=== PATIENT | female | born 1945 | race Caucasian/White ===

== ENCOUNTER 2017-09-04 15:34 | Inpatient (IN) | payer MEDICARE, MEDICAID ==
--- NOTE | 2017-09-04 16:10 | ED Physician Chart ---
ED Chief Complaint/HPI - Patient Information Date Seen:: 09/04/17 Time Seen:: 16:00 Chief Complaint:: refusing medications History of Present Illness:: Patient has been refusing medications and refusing food. She reportedly has episodes of aggressive behavior. Allergies:: Allergies Allergy/AdvReac Type Severity Reaction Status Date / Time MDX No Known Allergies - Nka Allergy Verified 09/04/17 15:58 [No Known Allergies - Nka] Vitals:: Vital Signs - 8 hr 09/04/17 15:53 Temp 98 F HR 69 RR 16 BP 170/63 O2 Sat % 98 Historian:: Patient Review:: Transfer documents Reviewed ED Review of Systems - Review of Systems General/Constitutional: No fever, No chills Skin: No skin lesions Head: No headache ENT: No earache Neck: No neck pain, No swelling Cardio Vascular: No chest pain, No palpitations GI: No nausea, No vomiting, No diarrhea G/U: No dysuria Musculoskeletal: No bone or joint pain Endocrine: No polyuria, No polydipsia Psychiatric: Prior psych history, Depression, Anxiety Hematopoietic: No bruising Allergic/Immuno: No urticaria Neurological: No syncope ED Past Medical History - Past Medical History Past Medical History: HTN, DM, Thyroid disorder, Other (type 2 diabetes; polyneuropathy; hypothyroidism; bipolar disorder; insomnia; major depression) Family History: None Social History: Non Smoker, No Alcohol, Care Facility Surgical History: other (left leg for fractures) Psychiatricy History: Depression, Bipolar Medication: Reviewed Family Medical History - Family Member Mother History Unknown: Yes Ethnicity: Living Status: ED Physical Exam - Physical Examination General/Constitutional: Well-developed, well-nourished, Alert, No distress Other Gen/Cons comments:: Patient is alert and oriented to the correct year only; she states the year is October Head: Atraumatic Eyes: Lids, conjuctiva normal, PERRL Other Skin comments:: Erythema both lower leg ENMT: External ears, nose nl, Lips, teeth, gums nl, Oropharynx nl Neck: No nuchal rigidity Respiratory: Nl effort/Exclusion, Clear to Auscultation, No Wheeze/Rhonchi/Rales Cardio Vascular: RRR, No murmur, gallop, rubs GI: No tenderness/rebounding/guarding, No organomegaly, No hernia Other Extremities comments:: 3-4 pretibial edema left lower leg and 2 out of 4 pretibial edema right lower leg Neuro/Psych: No focal deficits Misc: No paraspinal tenderness ED Labs/Radiology/EKG Results - Lab Results Results: Laboratory Results - last 24 hr 09/04/17 09/04/17 09/04/17 16:27 16:27 16:27 WBC 4.0 L D RBC 3.66 L Hgb 10.6 L Hct 31.6 L MCV 86.4 MCH 29.0 MCHC Differential 33.6 RDW 13.3 Plt Count 261 D MPV 7.3 Neutrophils % 72.6 Lymphocytes % 15.5 L Monocytes % 9.2 Eosinophils % 1.6 Basophils % 1.1 Sodium 141 Potassium 3.3 L Chloride 106 Carbon Dioxide 28.5 Anion Gap 9.8 BUN 23 Creatinine 0.6 Est GFR ( Amer) TNP Est GFR (Non-Af Amer) TNP BUN/Creatinine Ratio 38.3 Glucose 113 H Whole Bld Lactic Acid 0.61 Calcium 9.0 Total Bilirubin 0.2 L AST 18 ALT 12 Alkaline Phosphatase 58 Total Protein 6.8 Albumin 3.9 Globulin 2.9 Albumin/Globulin Ratio 1.3 Triglycerides 59 Cholesterol 227 H LDL Cholesterol Direct 151 HDL Cholesterol 66 - EKG Interpretations Rate & Rhythm: normal sinus rhythm with a rate of 63; low voltage; normal axis ED Septic Shock - . Is Septic Shock (SBP<90, OR Lactate>4 mmol\L) present?: No - <6hrs of presentation: Vital Signs: Vital Signs - 8 hr 09/04/17 15:53 Temp 98 F HR 69 RR 16 BP 170/63 O2 Sat % 98 ED Reassessment (Disposition) - Reassessment Reassessment Condition:: Unchanged - Diagnosis Diagnosis:: anemia; leukopenia; hypokalemia; bipolar disorder; depression; aggressive behavior - Patient Disposition Admitted to:: [facility] Admitting Medical Physician:: Elliott Luna Admitting Psych Physician:: Demetris Soto Condition at Disposition:: Stable, Unchanged
[2017-09-04 16:33] LABS: % BASOPHILS 1.1 % (0.0-2.0); % EOSINOPHILS 1.6 % (0.0-5.0); % LYMPHOCYTES 15.5 % (20.0-50.0); % MONOCYTES 9.2 % (2.0-10.0); % NEUTROPHILS 72.6 % (40.0-80.0); EOSINOPHILE ABSOLUTE 0.1 Th/cmm (0.1-0.4); HEMATOCRIT 31.6 % (41.0-60); HEMOGLOBIN 10.6 gm/dL (12-16); LYMPHOCYTE ABSOLUTE 0.6 Th/cmm (1.5-3.0); MEAN CELL VOLUME 86.4 fl (81-100); MEAN CORPUSCULAR HGB CONC 33.6 pg (28.0-36.0); MEAN PLATELET VOLUME 7.3 fl; MONOCYTE ABSOLUTE 0.4 Th/cmm (0.3-1.0); NEUTROPHILE ABSOLUTE 2.9 Th/cmm (1.8-8.0); RED BLOOD COUNT 3.66 Mil/cmm (3.80-5.20); RED CELL DISTRIBUTION WIDTH 13.3 % (11.5-20.0)
[2017-09-04 16:42] LABS: PLATELET COUNT 261 Th/cmm (150-400)
[2017-09-04 17:09] LABS: ALB/GLOB RATIO 1.3 (1.0-1.8); ALBUMIN 3.9 gm/dL (3.7-5.3); ALKALINE PHOSPHATASE 58 U/L (34-104); ANION GAP 9.8 (7.0-16.0); BILIRUBIN,TOTAL 0.2 mg/dL (0.3-1.0); BUN - UREA NITROGEN 23 mg/dL (7-25); CARBON DIOXIDE 28.5 mEq/L (21.0-31.0); CHLORIDE 106 mEq/L (98-107); CHOLESTEROL 227 mg/dL (<200); CREATININE - SERUM 0.6 mg/dL (0.6-1.2); GLUCOSE 113 mg/dL (70-105); HDL -HIGH DENSITY LIPOPROTEIN 66 mg/dL (23-92); POTASSIUM SERUM 3.3 mEq/L (3.5-5.1); SGOT 18 U/L (13-39); SGPT/ALT 12 U/L (7-52); SODIUM SERUM 141 mEq/L (136-145); TOTAL PROTEIN,SERUM 6.8 gm/dL (6.0-8.3); TRIGLYCERIDES 59 mg/dL (<150)
[2017-09-04 20:10] VITALS: BP 127/64
[2017-09-04] MEDS ORDERED: Guaifenesin DM 10 ML UDC PO PRN (20:56)
[2017-09-04] MEDS ORDERED: Magnesium Hydroxide (MOM) 30 mL UDC PO PRN (21:17)
[2017-09-04] MEDS ORDERED: Maalox 30 mL Cup PO PRN (21:17)
[2017-09-05] MEDS: Levothyroxine 0.1 Mg Tab PO SCH (06:53)
[2017-09-05] MEDS: Multivitamin Tab PO SCH (09:02)
--- NOTE | 2017-09-05 21:37 | History and Physical ---
History of Present Illness - HPI Chief Complaint: AGGRESSIVE BEHAVIOR HPI: THIS IS A 72 YEAR OLD FEMALE ADMITTED TO [facility] DUE TO AGGRESSIVE BEHAVIOR TOWARDS NURSING STAFF AND REFUSING ADL. Vital Signs: Last Vital Signs Temp 96.7 F 09/05/17 20:00 Pulse 82 09/05/17 20:00 Resp 20 09/05/17 20:00 BP 128/60 09/05/17 20:00 Pulse Ox 97 09/05/17 20:00 Past Medical History Other History: HTN, DM, Thyroid disorder, Other (type 2 diabetes; polyneuropathy; hypothyroidism; bipolar disorder; insomnia; major depression) Family Medical History - Family Member Mother History Unknown: Yes Ethnicity: Living Status: Father History Unknown: Yes Social History Smoke: No Alcohol: None Drugs: None Lives: Jail - Medications Home Medications: Home Medication Medication Instructions Recorded Type Carbamazepine [Carbamazepine ER] 200 mg PO BID 09/04/17 History Clonidine HCl [Catapres] 0.1 mg PO Q6HR PRN 09/04/17 History Dextromethorphan HBr [Tussin 10 ml PO Q4HR PRN 09/04/17 History Maximum Strength] Docusate Sodium 200 mg PO DAILY 09/04/17 History Escitalopram Oxalate [Lexapro] 20 mg PO DAILY 09/04/17 History Gabapentin 100 mg PO TID 09/04/17 History Levothyroxine Sodium 100 mcg PO BID 09/04/17 History Lorazepam [Ativan] 0.5 mg PO Q6HR PRN 09/04/17 History Multivitamin [Multi-Day Vitamins] 1 tab PO DAILY 09/04/17 History Psyllium [Metamucil] 1 pkt PO BID 09/04/17 History Risperidone [Risperdal] 0.5 mg PO BID 09/04/17 History Simethicone [Gas Relief Drops] 30 ml PO Q4HR PRN 09/04/17 History Simvastatin [Zocor] 40 mg PO HS 09/04/17 History Trazodone HCl 25 mg PO HS PRN 09/04/17 History Valsartan 80 mg PO DAILY 09/04/17 History metFORMIN [Glucophage] 500 mg PO BID 09/04/17 History - Allergies Allergies/Adverse Reactions: Allergies Allergy/AdvReac Type Severity Reaction Status Date / Time No Known Drug Allergies Allergy Verified 09/04/17 17:50 Review of Systems - Review of Systems Constitutional: Report: No Significant Eyes: Report: No Significant ENT: Report: No Significant Respiratory: Report: No Significant Cardiovascular: Report: No Significant Gastrointestinal: Report: No Significant Genitourinary: Report: No Significant Musculoskeletal: Report: No Significant Skin: Report: No Significant Neurological: Report: No Significant Physical Exam - Physical Exam HEENT: Report: Ears Nose Throat within normal limits Neck: Report: Within normal limits Cardiovascular Systems: Report: +s1/s2 noted, Regular, Rate and Rhythm Respiratory: Report: Breath Sounds are within normal limits, Clear to Auscultation of lung reyes Abdomen: Report: Non-tender to palpation Back: Report: Inspection of back is within normal limits. Skin: Report: Color of skin is within normal limits Neuro/Psych: Report: Mood affect is within normal limits - Lab Results All Lab Results last 24 hours: Laboratory Results - last 24 hr 09/05/17 06:44 POC Glucose 96 - Assessment Assessment: HTN DM HYPOTHYROID bipolar disorder - Plan Plan: MONITOR GLUCOSE MONITOR BP CONTINUE CURRENT ORDERS
--- NOTE | 2017-09-05 22:59 | Psychosocial Evaluation ---
DATE OF SERVICE: 09/04/2017 IDENTIFYING INFORMATION: The patient is a 72-year-old female. CHIEF COMPLAINT: No answer. HISTORY OF PRESENT ILLNESS: The patient was admitted because of aggressive behavior. She has been depressed, refusing to eat, refusing food, acting combative, aggressive. The patient herself was a poor historian, was unable to participate with me in a meaningful conversation. She turned her head, the other way. She has been upset, irritable. The patient unable to give any information. The patient has been on Tegretol 200 mg twice a day, Lexapro 20 mg daily, Risperdal 0.5 mg twice a day. She is a patient of Dr. Soto. PAST PSYCHIATRIC HISTORY: Unobtainable, but she sees Dr. Soto. MEDICAL HISTORY: Deferred to the medical doctor. ALLERGIES: She has no known drug allergies. She has high blood pressure. FAMILY AND SOCIAL HISTORY: She is diabetic and has high cholesterol. FAMILY AND SOCIAL HISTORY: Unable tell me any information. She apparently came from a nursing facility. MENTAL STATUS EXAMINATION: Appropriately dressed, not well groomed. She would not able to participate in a meaningful conversation. She has been depressed, refusing food, refusing medications, hard to redirect and unable to give me the date, how old she is, why she is here, so I am not sure if she is demented or not. However, at this point, she apparently is unable to take care of herself, unpredictable, impulsive. She was aggressive prior to her coming here. Unable to test her memory due for most of his status exam. Her insight and judgment is impaired. IMPRESSION: AXIS I: Depression, not otherwise specified. MEDICAL DIAGNOSIS: Deferred to the medical doctor. PLAN: I would recommend to continue medication. We will do group therapy, milieu therapy, individual therapy. ESTIMATED LENGTH OF STAY: 3-7 days. DISCHARGE CRITERIA: Decrease agitation, no longer aggressive or depressed, after discharge, outpatient. JOB# [id number]
[2017-09-06] MEDS: Levothyroxine 0.1 Mg Tab PO SCH (06:54)
[2017-09-06] MEDS: Multivitamin Tab PO SCH (08:44)
--- NOTE | 2017-09-06 23:24 | Progress Notes ---
DATE: 09/06/2017 SUBJECTIVE: The patient was seen in her room, the patient appears to be irritable and guarded at this time. Otherwise, the patient appears to be in no acute distress. OBJECTIVE: VITAL SIGNS: Temperature 98.1, heart rate 75, blood pressure of 132/67, respirations of 18. 2, and 94% on room air. HEENT: Head is atraumatic and normocephalic. Eyes: Bilateral conjunctivae are clear. Bilateral pupils are equally round and reactive. NECK: Supple. No JVD. CARDIOVASCULAR: S1 and S2, without murmur. PULMONARY: Clear to auscultation. GASTROINTESTINAL: Soft and nontender without guarding. Positive bowel sounds. MUSCULOSKELETAL: No clubbing, no cyanosis noted. ASSESSMENT: 1. Major depression disorder. 2. Hypertension. 3. Diabetes mellitus. 4. Hypothyroidism. 5. Hyperlipidemia. We will keep the patient inpatient in the Psychiatric Unit. We will follow up with psychiatrist to monitor the patient's condition and behavior. Treatment plans were discussed with the patient's nurse. Treatment plans discussed with Dr. Luna. JOB# [id number]
[2017-09-07] MEDS: Levothyroxine 0.1 Mg Tab PO SCH (06:55)
[2017-09-07] MEDS: Multivitamin Tab PO SCH (08:53)
--- NOTE | 2017-09-07 10:09 | General Progress Note ---
Subjective - Review of Systems Events since last encounter: patient continues to be irritable but in no acute distress Objective - Results Result Diagrams: 09/04/17 16:27 09/04/17 16: Recent Labs: Laboratory Last Values WBC 4.0 Th/cmm (4.8-10.8) L D 09/04/17 16: RBC 3.66 Mil/cmm (3.80-5.20) L 09/04/17: Hgb 10.6 gm/dL (12-16) L 09/04/17 16: Hct 31.6 % (41.0-60) L 09/04/17: MCV 86.4 fl (81-100) 09/04/17: MCH 29.0 pg (27.0-31.0) 09/04/17: MCHC Differential 33.6 pg (28.0-36.0) 09/04/17: RDW 13.3 % (11.5-20.0) 09/04/17: Plt Count 261 Th/cmm (150-400) D 09/04/17 16: MPV 7.3 fl 09/04/17 16: Neutrophils % 72.6 % (40.0-80.0) 09/04/17: Lymphocytes % 15.5 % (20.0-50.0) L 09/04/17: Monocytes % 9.2 % (2.0-10.0) 09/04/17: Eosinophils % 1.6 % (0.0-5.0) 09/04/17: Basophils % 1.1 % (0.0-2.0) 09/04/17 16: Sodium 141 mEq/L (136-145) 09/04/17 16: Potassium 3.3 mEq/L (3.5-5.1) L 09/04/17: Chloride 106 mEq/L (98-107) 09/04/17 16: Carbon Dioxide 28.5 mEq/L (21.0-31.0) 09/04/17 16: Anion Gap 9.8 (7.0-16.0) 09/04/17 16: BUN 23 mg/dL (7-25) 09/04/17 16:27 Creatinine 0.6 mg/dL (0.6-1.2) 09/04/17 16:27 Est GFR ( Amer) TNP 09/04/17 16:27 Est GFR (Non-Af Amer) TNP 09/04/17 16:27 BUN/Creatinine Ratio 38.3 09/04/17 16:27 Glucose 113 mg/dL (70-105) H 09/04/17 16:27 POC Glucose 96 MG/DL (70 - 105) 09/05/17 06:44 Whole Bld Lactic Acid 0.61 mmol/L (0.60-1.99) 09/04/17 16:27 Calcium 9.0 mg/dL (8.6-10.3) 09/04/17 16:27 Total Bilirubin 0.2 mg/dL (0.3-1.0) L 09/04/17 16:27 AST 18 U/L (13-39) 09/04/17 16:27 ALT 12 U/L (7-52) 09/04/17 16:27 Alkaline Phosphatase 58 U/L (34-104) 09/04/17 16:27 Total Protein 6.8 gm/dL (6.0-8.3) 09/04/17 16:27 Albumin 3.9 gm/dL (3.7-5.3) 09/04/17 16:27 Globulin 2.9 gm/dL 09/04/17 16:27 Albumin/Globulin Ratio 1.3 (1.0-1.8) 09/04/17 16:27 Triglycerides 59 mg/dL (<150) 09/04/17 16:27 Cholesterol 227 mg/dL (<200) H 09/04/17 16:27 LDL Cholesterol Direct 151 mg/dL (75-193) 09/04/17 16:27 HDL Cholesterol 66 mg/dL (23-92) 09/04/17 16:27 TSH 15.73 uIU/ml (0.34-5.60) H 09/04/17 16:27 RPR NONREACTIVE (NONREACTIVE) 09/04/17 16:27 - Physical Exam Vitals and I&O: Vital Signs Temp 97.3 F 09/07/17 06:16 Pulse 85 09/07/17 06:16 Resp 19 09/07/17 06:16 BP 130/65 01/28/18 06:16 Pulse Ox 98 09/07/17 06:16 Intake & Output 09/06/17 09/07/17 09/07/17 18:59 06:59 18:59 Intake Total 200 120 Balance 200 120 Intake: Oral 200 120 Other: # Voids 2 # Bowel Movements 2 Active Medications: Current Medications Acetaminophen (Tylenol) 650 mg PO Q4HR PRN PRN Reason: Mild Pain / Temp above 100 Stop: 11/03/17 21:16 Al Hydrox/Mg Hydrox/Simethicone (Maalox) 30 ml PO Q4HR PRN PRN Reason: GI DISTRESS Stop: 11/03/17 21:16 Carbamazepine (Tegretol) 200 mg PO BID JORDY PRN Reason: Protocol Stop: 11/04/17 08:59 Last Admin: 09/07/17 08:53 Dose: Not Given Escitalopram Oxalate (Lexapro) 20 mg PO DAILY JORDY PRN Reason: Protocol Stop: 11/04/17 08:59 Last Admin: 09/07/17 08:53 Dose: Not Given Gabapentin (Neurontin) 100 mg PO TID [facility] Stop: 11/03/17 20:59 Last Admin: 09/07/17 08:53 Dose: Not Given Guaifenesin/Dextromethorphan (Robitussin Dm) 10 ml PO Q4HR PRN PRN Reason: Cough Stop: 11/03/17 20:55 Levothyroxine Sodium (Synthroid) 0.1 mg PO QDAC [facility] Stop: 11/04/17 07:29 Last Admin: 09/07/17 06:55 Dose: 0.1 mg Lorazepam (Ativan) 0.5 mg PO Q6HR PRN; Protocol PRN Reason: anxiety Stop: 11/03/17 21:04 Magnesium Hydroxide (Milk Of Magnesia) 30 ml PO HS PRN PRN Reason: Constipation Metformin HCl (Glucophage) 500 mg PO BIDWM [facility] Stop: 11/04/17 07:59 Last Admin: 09/07/17 08:53 Dose: Not Given Multivitamins/Vitamin C (Theragran) 1 tab PO DAILY [facility] Stop: 11/04/17 08:59 Last Admin: 09/07/17 08:53 Dose: Not Given Risperidone (Risperdal) 0.5 mg PO BID JORDY PRN Reason: Protocol Stop: 11/04/17 08:59 Last Admin: 09/07/17 08:53 Dose: Not Given Simvastatin (Zocor) 40 mg PO HS JORDY PRN Reason: Protocol Stop: 11/03/17 20:59 Last Admin: 09/06/17 22:00 Dose: Not Given Trazodone HCl (Desyrel) 25 mg PO HS PRN; Protocol PRN Reason: Insomnia Stop: 11/04/17 20:59 Valsartan (Diovan) 80 mg PO DAILY JORDY Stop: 11/04/17 08:59 Last Admin: 09/07/17 08:53 Dose: Not Given - Procedures Procedures: Procedures Procedure Code Date GROUP PSYCHOTHERAPY 98051 10/17/15 GROUP PSYCHOTHERAPY GZHZZZZ 10/17/15 Assessment/Plan - Problem List Patient Problems: All Active Problems Mood swings (Acute) F39
--- NOTE | 2017-09-07 17:58 | Progress Notes ---
DATE: 09/06/2017 SUBJECTIVE: The patient was seen and evaluated. The patient's chart reviewed. IDENTIFYING DATA: A 72-year-old female, brought in here for aggressive behavior, depressed, not eating, refusing food, and aggressive. Overnight nursing staff reported that the patient is refusing medications and distraught. Today on [id number] evaluation, extremely poor historian, does not give much information. 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 MENTAL STATUS EXAMINATION: Irritable, agitated, and aggressive. ASSESSMENT AND PLAN: The patient is a 72-year-old female, severely cognitively impaired, assaultive, and unable to formulate a safe plan. We will continue with current medication regimens of Tegretol at 200 mg p.o. b.i.d., Lexapro 20 mg a day, gabapentin 100 mg p.o. t.i.d. and a low dose of risperidone to target the patient's impulsive and paranoid state. We will continue to monitor and evaluate, and obtain more collateral baseline information. [facility]# [id number]
--- NOTE | 2017-09-08 05:05 | Progress Notes ---
DATE: 09/07/2017 SUBJECTIVE: The patient was seen and evaluated. The patient's chart reviewed. Overnight nursing staff reported that the patient continues to attempting to AWOL, leave the unit, is very disorganized and also very aggressive. Today on [id number] evaluation, very disorganized, starts responding and talking to the monitor. MENTAL STATUS EXAMINATION: Responding, disorganized. ASSESSMENT AND PLAN: The patient is a 72-year-old female with severe dementia and with behavior disturbances and psychosis, who finds herself attempting to hit others and AWOL, refusing medications, not eating with poor appetite. We will consider re-seeing in the near future and given Zyprexa IM 5 mg to reduce the risk of aggression. [facility]# [id number]
[2017-09-08] MEDS: Levothyroxine 0.1 Mg Tab PO SCH (06:32)
[2017-09-08] MEDS: Multivitamin Tab PO SCH (09:10)
--- NOTE | 2017-09-08 10:15 | General Progress Note ---
Subjective - Review of Systems Events since last encounter: no signs of pain confused Objective - Results Result Diagrams: 09/04/17 16:27 09/04/17 16:27 Recent Labs: Laboratory Last Values WBC 4.0 Th/cmm (4.8-10.8) L D 09/04/17 16: RBC 3.66 Mil/cmm (3.80-5.20) L 09/04/17 16: Hgb 10.6 gm/dL (12-16) L 09/04/17 16: Hct 31.6 % (41.0-60) L 09/04/17 16: MCV 86.4 fl (81-100) 09/04/17 16: MCH 29.0 pg (27.0-31.0) 09/04/17: MCHC Differential 33.6 pg (28.0-36.0) 09/04/17 16: RDW 13.3 % (11.5-20.0) 09/04/17 16: Plt Count 261 Th/cmm (150-400) D 09/04/17 16: MPV 7.3 fl 09/04/17 16: Neutrophils % 72.6 % (40.0-80.0) 09/04/17 16: Lymphocytes % 15.5 % (20.0-50.0) L 09/04/17 16: Monocytes % 9.2 % (2.0-10.0) 09/04/17 16: Eosinophils % 1.6 % (0.0-5.0) 09/04/17 16: Basophils % 1.1 % (0.0-2.0) 09/04/17 16: Sodium 141 mEq/L (136-145) 09/04/17 16: Potassium 3.3 mEq/L (3.5-5.1) L 09/04/17 16: Chloride 106 mEq/L (98-107) 09/04/17 16: Carbon Dioxide 28.5 mEq/L (21.0-31.0) 09/04/17 16: Anion Gap 9.8 (7.0-16.0) 09/04/17 16: BUN 23 mg/dL (7-25) 09/04/17 16:27 Creatinine 0.6 mg/dL (0.6-1.2) 09/04/17 16:27 Est GFR ( Amer) TNP 09/04/17 16:27 Est GFR (Non-Af Amer) TNP 09/04/17 16:27 BUN/Creatinine Ratio 38.3 09/04/17 16:27 Glucose 113 mg/dL (70-105) H 09/04/17 16:27 POC Glucose 96 MG/DL (70 - 105) 09/05/17 06:44 Whole Bld Lactic Acid 0.61 mmol/L (0.60-1.99) 09/04/17 16:27 Calcium 9.0 mg/dL (8.6-10.3) 09/04/17 16:27 Total Bilirubin 0.2 mg/dL (0.3-1.0) L 09/04/17 16:27 AST 18 U/L (13-39) 09/04/17 16:27 ALT 12 U/L (7-52) 09/04/17 16:27 Alkaline Phosphatase 58 U/L (34-104) 09/04/17 16:27 Total Protein 6.8 gm/dL (6.0-8.3) 09/04/17 16:27 Albumin 3.9 gm/dL (3.7-5.3) 09/04/17 16:27 Globulin 2.9 gm/dL 09/04/17 16:27 Albumin/Globulin Ratio 1.3 (1.0-1.8) 09/04/17 16:27 Triglycerides 59 mg/dL (<150) 09/04/17 16:27 Cholesterol 227 mg/dL (<200) H 09/04/17 16:27 LDL Cholesterol Direct 151 mg/dL (75-193) 09/04/17 16:27 HDL Cholesterol 66 mg/dL (23-92) 09/04/17 16:27 TSH 15.73 uIU/ml (0.34-5.60) H 09/04/17 16:27 RPR NONREACTIVE (NONREACTIVE) 09/04/17 16:27 - Physical Exam Vitals and I&O: Vital Signs Temp 98.3 F 09/08/17 06:16 Pulse 67 09/08/17 06:16 Resp 20 09/08/17 06:16 BP 122/72 09/08/17 06:16 Pulse Ox 97 09/08/17 06:16 Intake & Output 09/07/17 09/08/17 09/08/17 18:59 06:59 18:59 Intake Total 120 580 Balance 120 580 Intake: Oral 120 580 Other: # Voids 1 1 Active Medications: Current Medications Acetaminophen (Tylenol) 650 mg PO Q4HR PRN PRN Reason: Mild Pain / Temp above 100 Stop: 11/03/17 21:16 Al Hydrox/Mg Hydrox/Simethicone (Maalox) 30 ml PO Q4HR PRN PRN Reason: GI DISTRESS Stop: 11/03/17 21:16 Carbamazepine (Tegretol) 200 mg PO BID JORDY PRN Reason: Protocol Stop: 11/04/17 08:59 Last Admin: 09/07/17 17:03 Dose: Not Given Escitalopram Oxalate (Lexapro) 20 mg PO DAILY JORDY PRN Reason: Protocol Stop: 11/04/17 08:59 Last Admin: 09/07/17 08:53 Dose: Not Given Gabapentin (Neurontin) 100 mg PO TID JORDY Stop: 11/03/17 20:59 Last Admin: 09/07/17 21:22 Dose: Not Given Guaifenesin/Dextromethorphan (Robitussin Dm) 10 ml PO Q4HR PRN PRN Reason: Cough Stop: 11/03/17 20:55 Levothyroxine Sodium (Synthroid) 0.1 mg PO QDAC COUNTS INCLUDE 234 BEDS AT THE [facility] Stop: 11/04/17 07:29 Last Admin: 09/08/17 06:32 Dose: 0.1 mg Lorazepam (Ativan) 0.5 mg PO Q6HR PRN; Protocol PRN Reason: anxiety Stop: 11/03/17 21:04 Magnesium Hydroxide (Milk Of Magnesia) 30 ml PO HS PRN PRN Reason: Constipation Metformin HCl (Glucophage) 500 mg PO BIDWM COUNTS INCLUDE 234 BEDS AT THE [facility] Stop: 11/04/17 07:59 Last Admin: 09/07/17 17:03 Dose: Not Given Multivitamins/Vitamin C (Theragran) 1 tab PO DAILY COUNTS INCLUDE 234 BEDS AT THE [facility] Stop: 11/04/17 08:59 Last Admin: 09/07/17 08:53 Dose: Not Given Risperidone (Risperdal) 0.5 mg PO BID JORDY PRN Reason: Protocol Stop: 11/04/17 08:59 Last Admin: 09/07/17 17:59 Dose: Not Given Simvastatin (Zocor) 40 mg PO HS JORDY PRN Reason: Protocol Stop: 11/03/17 20:59 Last Admin: 09/07/17 21:22 Dose: Not Given Trazodone HCl (Desyrel) 25 mg PO HS PRN; Protocol PRN Reason: Insomnia Stop: 11/04/17 20:59 Valsartan (Diovan) 80 mg PO DAILY JORDY Stop: 11/04/17 08:59 Last Admin: 09/07/17 08:53 Dose: Not Given - Procedures Procedures: Procedures Procedure Code Date GROUP PSYCHOTHERAPY 41500 10/17/15 GROUP PSYCHOTHERAPY GZHZZZZ 10/17/15 Assessment/Plan - Problem List Patient Problems: All Active Problems Mood swings (Acute) F39
[2017-09-09] MEDS: Levothyroxine 0.1 Mg Tab PO SCH (06:36)
[2017-09-09] MEDS ORDERED: Haloperidol Lactate 5 mg/mL 1mL Vial ONE (08:40)
[2017-09-09] MEDS: Multivitamin Tab PO SCH (08:40)
--- NOTE | 2017-09-09 12:56 | Progress Notes ---
DATE: 09/08/2017 SUBJECTIVE: The patient was seen and evaluated. The patient's chart reviewed. This is Dr. Soto. Overnight nursing staff reported, the patient continues to refuse all her medications and attempting to AWOL, disorganized. Today on [id number] evaluation, the patient continues to perseverate that she has all the money in the bank, but she does not want her family to know. She then jumps from another topic to another topic. MENTAL STATUS EXAMINATION: Disorganized, delusional, thought blocking ASSESSMENT AND PLAN: A 72-year-old female with severe dementia with behavioral disturbances, who continues to find herself disengaged. At this point, we will continue monitoring and evaluating. We will send the applications to release the patient as she finds herself not eating secondary to the paranoia, delusions and distraught. JOB# [id number]
--- NOTE | 2017-09-09 21:08 | Internal Medicine Prog Note ---
Internal Medicine Subjective - Subjective Service Date: 09/09/17 Patient seen and examined:: with staff Patient is:: awake, verbal Per staff patient has:: tolerating meds Internal Medicine Objective - Results Result Diagrams: 09/04/17 16:09/04/17 16: Recent Labs: Laboratory Last Values WBC 4.0 Th/cmm (4.8-10.8) L D 09/04/17 16: RBC 3.66 Mil/cmm (3.80-5.20) L 09/04/17 16: Hgb 10.6 gm/dL (12-16) L 09/04/17 16: Hct 31.6 % (41.0-60) L 09/04/17 16: MCV 86.4 fl (81-100) 09/04/17 16: MCH 29.0 pg (27.0-31.0) 09/04/17 16: MCHC Differential 33.6 pg (28.0-36.0) 09/04/17 16: RDW 13.3 % (11.5-20.0) 09/04/17 16: Plt Count 261 Th/cmm (150-400) D 09/04/17 16: MPV 7.3 fl 09/04/17 16: Neutrophils % 72.6 % (40.0-80.0) 09/04/17 16: Lymphocytes % 15.5 % (20.0-50.0) L 09/04/17 16: Monocytes % 9.2 % (2.0-10.0) 09/04/17 16: Eosinophils % 1.6 % (0.0-5.0) 09/04/17 16: Basophils % 1.1 % (0.0-2.0) 09/04/17 16: Sodium 141 mEq/L (136-145) 09/04/17 16: Potassium 3.3 mEq/L (3.5-5.1) L 09/04/17 16: Chloride 106 mEq/L (98-107) 09/04/17 16: Carbon Dioxide 28.5 mEq/L (21.0-31.0) 09/04/17 16: Anion Gap 9.8 (7.0-16.0) 09/04/17 16:27 BUN 23 mg/dL (7-25) 09/04/17 16:27 Creatinine 0.6 mg/dL (0.6-1.2) 09/04/17 16:27 Est GFR ( Amer) TNP 09/04/17 16:27 Est GFR (Non-Af Amer) TNP 09/04/17 16:27 BUN/Creatinine Ratio 38.3 09/04/17 16:27 Glucose 113 mg/dL (70-105) H 09/04/17 16:27 POC Glucose 96 MG/DL (70 - 105) 09/05/17 06:44 Whole Bld Lactic Acid 0.61 mmol/L (0.60-1.99) 09/04/17 16: Calcium 9.0 mg/dL (8.6-10.3) 09/04/17 16: Total Bilirubin 0.2 mg/dL (0.3-1.0) L 09/04/17 16: AST 18 U/L (13-39) 09/04/17 16: ALT 12 U/L (7-52) 09/04/17 16: Alkaline Phosphatase 58 U/L (34-104) 09/04/17 16:27 Total Protein 6.8 gm/dL (6.0-8.3) 09/04/17 16: Albumin 3.9 gm/dL (3.7-5.3) 09/04/17 16: Globulin 2.9 gm/dL 09/04/17 16: Albumin/Globulin Ratio 1.3 (1.0-1.8) 09/04/17 16:27 Triglycerides 59 mg/dL (<150) 09/04/17 16:27 Cholesterol 227 mg/dL (<200) H 09/04/17 16:27 LDL Cholesterol Direct 151 mg/dL (75-193) 09/04/17 16: HDL Cholesterol 66 mg/dL (23-92) 09/04/17 16: TSH 15.73 uIU/ml (0.34-5.60) H 09/04/17 16:27 RPR NONREACTIVE (NONREACTIVE) 09/04/17 16:27 - Physical Exam Vitals and I&O: Vital Signs Temp 98.9 F 01/30/18 20:19 Pulse 66 09/09/17 20:19 Resp 20 09/09/17 20:19 BP 142/75 09/09/17 20:19 Pulse Ox 100 09/09/17 20:19 Intake & Output 09/09/17 09/09/17 09/10/17 06:59 18:59 06:59 Intake Total 850 240 Balance 850 240 Intake: Oral 850 240 Other: # Voids 4 1 # Bowel Movements 1 Active Medications: Current Medications Acetaminophen (Tylenol) 650 mg PO Q4HR PRN PRN Reason: Mild Pain / Temp above 100 Stop: 11/03/17 21:16 Al Hydrox/Mg Hydrox/Simethicone (Maalox) 30 ml PO Q4HR PRN PRN Reason: GI DISTRESS Stop: 11/03/17 21:16 Carbamazepine (Tegretol) 200 mg PO BID JORDY PRN Reason: Protocol Stop: 11/04/17 08:59 Last Admin: 09/09/17 08:39 Dose: Not Given Escitalopram Oxalate (Lexapro) 20 mg PO DAILY JORDY PRN Reason: Protocol Stop: 11/04/17 08:59 Last Admin: 09/09/17 08:40 Dose: Not Given Gabapentin (Neurontin) 100 mg PO TID [facility] Stop: 11/03/17 20:59 Last Admin: 09/09/17 14:10 Dose: Not Given Guaifenesin/Dextromethorphan (Robitussin Dm) 10 ml PO Q4HR PRN PRN Reason: Cough Stop: 11/03/17 20:55 Levothyroxine Sodium (Synthroid) 0.1 mg PO QDAC [facility] Stop: 11/04/17 07:29 Last Admin: 09/09/17 06:36 Dose: 0.1 mg Lorazepam (Ativan) 0.5 mg PO Q6HR PRN; Protocol PRN Reason: anxiety Stop: 11/03/17 21:04 Magnesium Hydroxide (Milk Of Magnesia) 30 ml PO HS PRN PRN Reason: Constipation Metformin HCl (Glucophage) 500 mg PO BIDWM [facility] Stop: 11/04/17 07:59 Last Admin: 09/09/17 08:39 Dose: Not Given Multivitamins/Vitamin C (Theragran) 1 tab PO DAILY [facility] Stop: 11/04/17 08:59 Last Admin: 09/09/17 08:40 Dose: Not Given Risperidone (Risperdal) 0.5 mg PO BID JORDY PRN Reason: Protocol Stop: 11/04/17 08:59 Last Admin: 09/09/17 08:40 Dose: Not Given Simvastatin (Zocor) 40 mg PO HS JORDY PRN Reason: Protocol Stop: 11/03/17 20:59 Last Admin: 09/08/17 21:00 Dose: Not Given Trazodone HCl (Desyrel) 25 mg PO HS PRN; Protocol PRN Reason: Insomnia Stop: 11/04/17 20:59 Valsartan (Diovan) 80 mg PO DAILY JORDY Stop: 11/04/17 08:59 Last Admin: 09/09/17 08:40 Dose: Not Given General: alert HEENT: NC/AT, PERRLA Neck: Supple Lungs: CTAB Neurological: alert - Procedures Procedures: Procedures Procedure Code Date GROUP PSYCHOTHERAPY 62751 10/17/15 GROUP PSYCHOTHERAPY GZHZZZZ 10/17/15 Internal Medicine Assmt/Plan - Assessment Assessment: HTN DM HYPOTHYROID bipolar disorder - Plan Plan: MONITOR GLUCOSE MONITOR BP CONTINUE CURRENT ORDERS Nutritional Asmnt/Malnutr-PDOC - Dietary Evaluation Malnutrition Findings (Please click <Entered> for more info): Nutritional Asmnt/Malnutrition Start: 09/09/17 18: 16 Text: Status: Complete Freq: Document 09/09/17 18:16 LCHENG (Rec: 09/09/17 18:23 LCHENG [email or web address]) Nutritional Asmnt/Malnutrition Patient General Information Nutritional Screening Moderate Risk Diagnosis psychosis NOS Pertinent Medical Hx/Surgical Hx HRN, DM, thyroid disorer, polyneuropathy, hypothyroidism , bipolar disorder, insomnia, major depression Subjective Information Pt seen sleeping in zaina-chair in dining room at time of visit. Spoke with nurse, pt sleeping d/t medication, consumed 60% of breakfast this morning. Per notes PO intake 50-75%. Current Diet Order/ Nutrition Support CCHO-45gm Pertinent Medications synthroid, glucophage, theragran Pertinent Labs 09/04 Na 141, K 3.3, Cl 106, BUN 23, Cr 0.6, Glucose 113, Alb 3.9 09/05 POC 96 Nutritional Hx/Data Height 5 ft Height (Calculated Centimeters) 152.4 Current Weight (lbs) 142 lb Weight (Calculated Kilograms) 64.4 Weight (Calculated Grams) 44709.1 [place] Body Weight 100 % [place] Body Weight 142 Body Mass Index (BMI) 27.7 Weight Status Overweight GI Symptoms GI Symptoms None Last BM 09/01 x 2 Difficult in: None Skin Integrity/Comment: dryness Current %PO Fair (50-74%) Estimated Nutritional Goals BEE in Kcals: Using Current wt Calories/Kcals/Kg 23-27 Kcals Calculated 4702-9527 Protein: Using Current wt Protein g/k Protein Calculated 65 Fluid: ml 1495-1755ml (1ml/kcal) Nutritional Problem 1. Problem Problem inadequate food intake Etiology possible poor appetite, cognition Signs/Symptoms: PO intake 50-75%, not meeting 100% of nutritional needs Intervention/Recommendation Comments 1. Recommend CCHO 60gm diet. Assit pt with meals as needed. 2. Monitor PO intake, wt, labs and skin integrity 3. F/U as moderate risk in 3-5 days, 2/2-2/4 Expected Outcomes/Goals Expected Outcomes/Goals 1. PO intake to meet at least 75% of nutritional needs. 2. Wt stability, skin to remain intact, labs to approach WNL.
[2017-09-10] MEDS: Levothyroxine 0.1 Mg Tab PO SCH (06:47)
[2017-09-10] MEDS: Multivitamin Tab PO SCH (09:04)
--- NOTE | 2017-09-10 09:56 | General Progress Note ---
Subjective - Review of Systems Events since last encounter: awake withdrawn in no distress Objective - Results Result Diagrams: 09/04/17 16:27 09/04/17 16:27 Recent Labs: Laboratory Last Values WBC 4.0 Th/cmm (4.8-10.8) L D 09/04/17 16: RBC 3.66 Mil/cmm (3.80-5.20) L 09/04/17 16: Hgb 10.6 gm/dL (12-16) L 09/04/17 16: Hct 31.6 % (41.0-60) L 09/04/17 16: MCV 86.4 fl (81-100) 09/04/17 16: MCH 29.0 pg (27.0-31.0) 09/04/17: MCHC Differential 33.6 pg (28.0-36.0) 09/04/17 16: RDW 13.3 % (11.5-20.0) 09/04/17 16: Plt Count 261 Th/cmm (150-400) D 09/04/17 16: MPV 7.3 fl 09/04/17 16: Neutrophils % 72.6 % (40.0-80.0) 09/04/17 16: Lymphocytes % 15.5 % (20.0-50.0) L 09/04/17 16: Monocytes % 9.2 % (2.0-10.0) 09/04/17 16: Eosinophils % 1.6 % (0.0-5.0) 09/04/17 16: Basophils % 1.1 % (0.0-2.0) 09/04/17 16: Sodium 141 mEq/L (136-145) 09/04/17 16: Potassium 3.3 mEq/L (3.5-5.1) L 09/04/17 16: Chloride 106 mEq/L (98-107) 09/04/17 16: Carbon Dioxide 28.5 mEq/L (21.0-31.0) 09/04/17 16: Anion Gap 9.8 (7.0-16.0) 09/04/17 16: BUN 23 mg/dL (7-25) 09/04/17 16:27 Creatinine 0.6 mg/dL (0.6-1.2) 09/04/17 16:27 Est GFR ( Amer) TNP 09/04/17 16:27 Est GFR (Non-Af Amer) TNP 09/04/17 16:27 BUN/Creatinine Ratio 38.3 09/04/17 16:27 Glucose 113 mg/dL (70-105) H 09/04/17 16:27 POC Glucose 96 MG/DL (70 - 105) 09/05/17 06:44 Whole Bld Lactic Acid 0.61 mmol/L (0.60-1.99) 09/04/17 16:27 Calcium 9.0 mg/dL (8.6-10.3) 09/04/17 16:27 Total Bilirubin 0.2 mg/dL (0.3-1.0) L 09/04/17 16:27 AST 18 U/L (13-39) 09/04/17 16:27 ALT 12 U/L (7-52) 09/04/17 16:27 Alkaline Phosphatase 58 U/L (34-104) 09/04/17 16:27 Total Protein 6.8 gm/dL (6.0-8.3) 09/04/17 16:27 Albumin 3.9 gm/dL (3.7-5.3) 09/04/17 16:27 Globulin 2.9 gm/dL 09/04/17 16:27 Albumin/Globulin Ratio 1.3 (1.0-1.8) 09/04/17 16:27 Triglycerides 59 mg/dL (<150) 09/04/17 16:27 Cholesterol 227 mg/dL (<200) H 09/04/17 16:27 LDL Cholesterol Direct 151 mg/dL (75-193) 09/04/17 16:27 HDL Cholesterol 66 mg/dL (23-92) 09/04/17 16:27 TSH 15.73 uIU/ml (0.34-5.60) H 09/04/17 16:27 RPR NONREACTIVE (NONREACTIVE) 09/04/17 16:27 - Physical Exam Vitals and I&O: Vital Signs Temp 97.8 F 09/10/17 06:30 Pulse 62 09/10/17 06:30 Resp 19 09/10/17 06:30 BP 149/62 09/10/17 06:30 Pulse Ox 98 09/10/17 06:30 Intake & Output 09/09/17 09/10/17 09/10/17 18:59 06:59 18:59 Intake Total 850 240 Balance 850 240 Intake: Oral 850 240 Other: # Voids 4 3 # Bowel Movements 1 0 Active Medications: Current Medications Acetaminophen (Tylenol) 650 mg PO Q4HR PRN PRN Reason: Mild Pain / Temp above 100 Stop: 11/03/17 21:16 Al Hydrox/Mg Hydrox/Simethicone (Maalox) 30 ml PO Q4HR PRN PRN Reason: GI DISTRESS Stop: 11/03/17 21:16 Carbamazepine (Tegretol) 200 mg PO BID JORDY PRN Reason: Protocol Stop: 11/04/17 08:59 Last Admin: 09/09/17 08:39 Dose: Not Given Escitalopram Oxalate (Lexapro) 20 mg PO DAILY JORDY PRN Reason: Protocol Stop: 11/04/17 08:59 Last Admin: 09/09/17 08:40 Dose: Not Given Gabapentin (Neurontin) 100 mg PO TID JORDY Stop: 11/03/17 20:59 Last Admin: 09/09/17 21:14 Dose: Not Given Guaifenesin/Dextromethorphan (Robitussin Dm) 10 ml PO Q4HR PRN PRN Reason: Cough Stop: 11/03/17 20:55 Levothyroxine Sodium (Synthroid) 0.1 mg PO QDAC [facility] Stop: 11/04/17 07:29 Last Admin: 09/10/17 06:47 Dose: 0.1 mg Lorazepam (Ativan) 0.5 mg PO Q6HR PRN; Protocol PRN Reason: anxiety Stop: 11/03/17 21:04 Magnesium Hydroxide (Milk Of Magnesia) 30 ml PO HS PRN PRN Reason: Constipation Metformin HCl (Glucophage) 500 mg PO BIDWM [facility] Stop: 11/04/17 07:59 Last Admin: 09/10/17 08:20 Dose: 500 mg Multivitamins/Vitamin C (Theragran) 1 tab PO DAILY [facility] Stop: 11/04/17 08:59 Last Admin: 09/09/17 08:40 Dose: Not Given Risperidone (Risperdal) 0.5 mg PO BID JORDY PRN Reason: Protocol Stop: 11/04/17 08:59 Last Admin: 09/09/17 08:40 Dose: Not Given Simvastatin (Zocor) 40 mg PO HS JORDY PRN Reason: Protocol Stop: 11/03/17 20:59 Last Admin: 09/09/17 21:14 Dose: Not Given Trazodone HCl (Desyrel) 25 mg PO HS PRN; Protocol PRN Reason: Insomnia Stop: 11/04/17 20:59 Valsartan (Diovan) 80 mg PO DAILY JORDY Stop: 11/04/17 08:59 Last Admin: 09/09/17 08:40 Dose: Not Given - Procedures Procedures: Procedures Procedure Code Date GROUP PSYCHOTHERAPY 79234 10/17/15 GROUP PSYCHOTHERAPY GZHZZZZ 10/17/15 Assessment/Plan - Problem List Patient Problems: All Active Problems Mood swings (Acute) F39 Nutritional Asmnt/Malnutr-PDOC - Dietary Evaluation Malnutrition Findings (Please click <Entered> for more info): Nutritional Asmnt/Malnutrition Start: 09/09/17 18: 16 Text: Status: Complete Freq: Document 09/09/17 18:16 LCHENG (Rec: 09/09/17 18:23 LCHENG [email or web address]) Nutritional Asmnt/Malnutrition Patient General Information Nutritional Screening Moderate Risk Diagnosis psychosis NOS Pertinent Medical Hx/Surgical Hx HRN, DM, thyroid disorer, polyneuropathy, hypothyroidism , bipolar disorder, insomnia, major depression Subjective Information Pt seen sleeping in zaina-chair in dining room at time of visit. Spoke with nurse, pt sleeping d/t medication, consumed 60% of breakfast this morning. Per notes PO intake 50-75%. Current Diet [facility]/ [facility] Pertinent Medications synthroid, glucophage, theragran Pertinent Labs 09/04 Na 141, K 3.3, Cl 106, BUN 23, Cr 0.6, Glucose 113, Alb 3.9 09/05 POC 96 Nutritional Hx/Data Height 1.52 m Height (Calculated Centimeters) 152.4 Current Weight (lbs) 64.41 kg Weight (Calculated Kilograms) 64.4 Weight (Calculated Grams) 40778.1 [place] Body Weight 100 % [place] Body Weight 142 Body Mass Index (BMI) 27.7 Weight Status Overweight GI Symptoms GI Symptoms None Last BM 09/01 x 2 Difficult in: None Skin Integrity/Comment: dryness Current %PO Fair (50-74%) Estimated Nutritional Goals BEE in Kcals: Using Current wt Calories/Kcals/Kg 23-27 Kcals Calculated 3103-3408 Protein: Using Current wt Protein g/k Protein Calculated 65 Fluid: ml 1495-1755ml (1ml/kcal) Nutritional Problem 1. Problem Problem inadequate food intake Etiology possible poor appetite, cognition Signs/Symptoms: PO intake 50-75%, not meeting 100% of nutritional needs Intervention/Recommendation Comments 1. Recommend CCHO 60gm diet. Assit pt with meals as needed. 2. Monitor PO intake, wt, labs and skin integrity 3. F/U as moderate risk in 3-5 days, 2/2-2/4 Expected Outcomes/Goals Expected Outcomes/Goals 1. PO intake to meet at least 75% of nutritional needs. 2. Wt stability, skin to remain intact, labs to approach WNL.
--- NOTE | 2017-09-10 10:51 | Progress Notes ---
DATE: 09/09/2017 SUBJECTIVE: The patient seen, chart reviewed, discussed with staff. The patient in the hospital due to aggressive behaviors, refusing to eat, acting combative, aggressive. The patient refusing to speak with Dr. Witt on initial exam. The patient required emergency medications this morning and remains quite sedated. She remains perseverative and disorganized, attempting to leave the facility. MEDICATIONS: Reviewed. MENTAL STATUS EXAMINATION: The patient disorganized, delusional, still combative, agitated. PLAN: We will continue to monitor. Given her ongoing symptoms, she is not safe for discharge. Medications were reviewed. The patient with a diagnosis currently of essentially mood, unspecified. Unclear if she has dementia diagnosis. We will need to continue to evaluate. [facility]# [id number]
[2017-09-11] MEDS: Levothyroxine 0.1 Mg Tab PO SCH (06:41)
--- NOTE | 2017-09-11 08:26 | General Progress Note ---
Subjective - Review of Systems Events since last encounter: in no distress continues to be withdrawn Objective - Results Result Diagrams: 09/04/17 16:27 09/04/17 16: Recent Labs: Laboratory Last Values WBC 4.0 Th/cmm (4.8-10.8) L D 09/04/17 16: RBC 3.66 Mil/cmm (3.80-5.20) L 09/04/17 16: Hgb 10.6 gm/dL (12-16) L 09/04/17 16: Hct 31.6 % (41.0-60) L 09/04/17 16: MCV 86.4 fl (81-100) 09/04/17 16: MCH 29.0 pg (27.0-31.0) 09/04/17: MCHC Differential 33.6 pg (28.0-36.0) 09/04/17: RDW 13.3 % (11.5-20.0) 09/04/17: Plt Count 261 Th/cmm (150-400) D 09/04/17 16: MPV 7.3 fl 09/04/17 16: Neutrophils % 72.6 % (40.0-80.0) 09/04/17 16: Lymphocytes % 15.5 % (20.0-50.0) L 09/04/17 16: Monocytes % 9.2 % (2.0-10.0) 09/04/17 16: Eosinophils % 1.6 % (0.0-5.0) 09/04/17: Basophils % 1.1 % (0.0-2.0) 09/04/17 16: Sodium 141 mEq/L (136-145) 09/04/17 16: Potassium 3.3 mEq/L (3.5-5.1) L 09/04/17 16: Chloride 106 mEq/L (98-107) 09/04/17 16: Carbon Dioxide 28.5 mEq/L (21.0-31.0) 09/04/17 16: Anion Gap 9.8 (7.0-16.0) 09/04/17 16: BUN 23 mg/dL (7-25) 09/04/17 16:27 Creatinine 0.6 mg/dL (0.6-1.2) 09/04/17 16:27 Est GFR ( Amer) TNP 09/04/17 16:27 Est GFR (Non-Af Amer) TNP 09/04/17 16:27 BUN/Creatinine Ratio 38.3 09/04/17 16:27 Glucose 113 mg/dL (70-105) H 09/04/17 16:27 POC Glucose 96 MG/DL (70 - 105) 09/05/17 06:44 Whole Bld Lactic Acid 0.61 mmol/L (0.60-1.99) 09/04/17 16: Calcium 9.0 mg/dL (8.6-10.3) 09/04/17 16: Total Bilirubin 0.2 mg/dL (0.3-1.0) L 09/04/17 16:27 AST 18 U/L (13-39) 09/04/17 16: ALT 12 U/L (7-52) 09/04/17 16: Alkaline Phosphatase 58 U/L (34-104) 09/04/17 16:27 Total Protein 6.8 gm/dL (6.0-8.3) 09/04/17 16: Albumin 3.9 gm/dL (3.7-5.3) 09/04/17 16: Globulin 2.9 gm/dL 09/04/17 16:27 Albumin/Globulin Ratio 1.3 (1.0-1.8) 09/04/17 16:27 Triglycerides 59 mg/dL (<150) 09/04/17 16:27 Cholesterol 227 mg/dL (<200) H 09/04/17 16:27 LDL Cholesterol Direct 151 mg/dL (75-193) 09/04/17 16:27 HDL Cholesterol 66 mg/dL (23-92) 09/04/17 16: TSH 15.73 uIU/ml (0.34-5.60) H 09/04/17 16:27 RPR NONREACTIVE (NONREACTIVE) 09/04/17 16:27 - Physical Exam Vitals and I&O: Vital Signs Temp 98.2 F 09/11/17 06:22 Pulse 61 09/11/17 06:22 Resp 19 09/11/17 06:22 BP 133/69 09/11/17 06:22 Pulse Ox 97 09/11/17 06:22 Intake & Output 09/10/17 09/11/17 09/11/17 18:59 06:59 18:59 Intake Total 1000 120 Balance 1000 120 Intake: Oral 1000 120 Other: # Voids 3 # Bowel Movements 1 Active Medications: Current Medications Acetaminophen (Tylenol) 650 mg PO Q4HR PRN PRN Reason: Mild Pain / Temp above 100 Stop: 11/03/17 21:16 Al Hydrox/Mg Hydrox/Simethicone (Maalox) 30 ml PO Q4HR PRN PRN Reason: GI DISTRESS Stop: 11/03/17 21:16 Carbamazepine (Tegretol) 200 mg PO BID JORDY PRN Reason: Protocol Stop: 11/04/17 08:59 Last Admin: 09/10/17 17:02 Dose: Not Given Escitalopram Oxalate (Lexapro) 20 mg PO DAILY JORDY PRN Reason: Protocol Stop: 11/04/17 08:59 Last Admin: 09/10/17 09:03 Dose: Not Given Gabapentin (Neurontin) 100 mg PO TID JORDY Stop: 11/03/17 20:59 Last Admin: 09/10/17 20:55 Dose: Not Given Guaifenesin/Dextromethorphan (Robitussin Dm) 10 ml PO Q4HR PRN PRN Reason: Cough Stop: 11/03/17 20:55 Levothyroxine Sodium (Synthroid) 0.1 mg PO QDAC [facility] Stop: 11/04/17 07:29 Last Admin: 09/11/17 06:41 Dose: 0.1 mg Lorazepam (Ativan) 0.5 mg PO Q6HR PRN; Protocol PRN Reason: anxiety Stop: 11/03/17 21:04 Magnesium Hydroxide (Milk Of Magnesia) 30 ml PO HS PRN PRN Reason: Constipation Metformin HCl (Glucophage) 500 mg PO BIDWM [facility] Stop: 11/04/17 07:59 Last Admin: 09/10/17 08:20 Dose: 500 mg Multivitamins/Vitamin C (Theragran) 1 tab PO DAILY [facility] Stop: 11/04/17 08:59 Last Admin: 09/10/17 09:04 Dose: Not Given Risperidone (Risperdal) 0.5 mg PO BID JORDY PRN Reason: Protocol Stop: 11/04/17 08:59 Last Admin: 09/10/17 17:03 Dose: Not Given Simvastatin (Zocor) 40 mg PO HS JORDY PRN Reason: Protocol Stop: 11/03/17 20:59 Last Admin: 09/10/17 20:55 Dose: Not Given Trazodone HCl (Desyrel) 25 mg PO HS PRN; Protocol PRN Reason: Insomnia Stop: 11/04/17 20:59 Valsartan (Diovan) 80 mg PO DAILY JORDY Stop: 11/04/17 08:59 Last Admin: 09/10/17 17:04 Dose: Not Given - Procedures Procedures: Procedures Procedure Code Date GROUP PSYCHOTHERAPY 20244 10/17/15 GROUP PSYCHOTHERAPY GZHZZZZ 10/17/15 Assessment/Plan - Problem List Patient Problems: All Active Problems Mood swings (Acute) F39 Nutritional Asmnt/Malnutr-PDOC - Dietary Evaluation Malnutrition Findings (Please click <Entered> for more info): Nutritional Asmnt/Malnutrition Start: 09/09/17 18: 16 Text: Status: Complete Freq: Document 09/09/17 18:16 LCHENG (Rec: 09/09/17 18:23 LCHENG [email or web address]) Nutritional Asmnt/Malnutrition Patient General Information Nutritional Screening Moderate Risk Diagnosis psychosis NOS Pertinent Medical Hx/Surgical Hx HRN, DM, thyroid disorer, polyneuropathy, hypothyroidism , bipolar disorder, insomnia, major depression Subjective Information Pt seen sleeping in zaina-chair in dining room at time of visit. Spoke with nurse, pt sleeping d/t medication, consumed 60% of breakfast this morning. Per notes PO intake 50-75%. Current Diet Order/ [facility] Pertinent Medications synthroid, glucophage, theragran Pertinent Labs 09/04 Na 141, K 3.3, Cl 106, BUN 23, Cr 0.6, Glucose 113, Alb 3.9 09/05 POC 96 Nutritional Hx/Data Height 1.52 m Height (Calculated Centimeters) 152.4 Current Weight (lbs) 64.41 kg Weight (Calculated Kilograms) 64.4 Weight (Calculated Grams) 48666.1 [place] Body Weight 100 % [place] Body Weight 142 Body Mass Index (BMI) 27.7 Weight Status Overweight GI Symptoms GI Symptoms None Last BM 09/01 x 2 Difficult in: None Skin Integrity/Comment: dryness Current %PO Fair (50-74%) Estimated Nutritional Goals BEE in Kcals: Using Current wt Calories/Kcals/Kg 23-27 Kcals Calculated 4702-2913 Protein: Using Current wt Protein g/k Protein Calculated 65 Fluid: ml 1495-1755ml (1ml/kcal) Nutritional Problem 1. Problem Problem inadequate food intake Etiology possible poor appetite, cognition Signs/Symptoms: PO intake 50-75%, not meeting 100% of nutritional needs Intervention/Recommendation Comments 1. Recommend CCHO 60gm diet. Assit pt with meals as needed. 2. Monitor PO intake, wt, labs and skin integrity 3. F/U as moderate risk in 3-5 days, 2/2-2/4 Expected Outcomes/Goals Expected Outcomes/Goals 1. PO intake to meet at least 75% of nutritional needs. 2. Wt stability, skin to remain intact, labs to approach WNL.
[2017-09-11] MEDS: Multivitamin Tab PO SCH (09:32)
--- NOTE | 2017-09-11 10:01 | Progress Notes ---
DATE: SUBJECTIVE: The patient is currently in the hospital, seems confused, unruly at times, requiring emergency medications, depressed, refusing to eat, acting combative at home, stating that her family is "making accusations," stating that people are abusing her and her family has been lying, but apparently the patient was sent to the ER initially on 09/04/2017 because she has been refusing meds, refusing food and had been aggressive, and the patient remains aggressive, apparently requiring emergency medications just yesterday, currently on Risperdal. ASSESSMENT: The patient remains symptomatic, still aggressive, agitated, confusion noted. PLAN: I will continue to monitor. Given her ongoing symptoms, she is not safe for discharge. Continue Risperdal. Continue to encourage better medication and p.o. compliance. [facility]# [id number]
[2017-09-12] MEDS: Levothyroxine 0.1 Mg Tab PO SCH (06:34)
[2017-09-12] MEDS: Multivitamin Tab PO SCH (09:06)
--- NOTE | 2017-09-12 14:53 | Internal Medicine Prog Note ---
Internal Medicine Subjective - Subjective Service Date: 09/12/17 Patient is:: awake, verbal Per staff patient has:: tolerating meds Internal Medicine Objective - Results Result Diagrams: 09/04/17 16:09/04/17 16: Recent Labs: Laboratory Last Values WBC 4.0 Th/cmm (4.8-10.8) L D 09/04/17 16: RBC 3.66 Mil/cmm (3.80-5.20) L 09/04/17 16: Hgb 10.6 gm/dL (12-16) L 09/04/17 16: Hct 31.6 % (41.0-60) L 09/04/17 16: MCV 86.4 fl (81-100) 09/04/17 16: MCH 29.0 pg (27.0-31.0) 09/04/17 16: MCHC Differential 33.6 pg (28.0-36.0) 09/04/17 16: RDW 13.3 % (11.5-20.0) 09/04/17 16: Plt Count 261 Th/cmm (150-400) D 09/04/17 16: MPV 7.3 fl 09/04/17 16: Neutrophils % 72.6 % (40.0-80.0) 09/04/17 16: Lymphocytes % 15.5 % (20.0-50.0) L 09/04/17 16: Monocytes % 9.2 % (2.0-10.0) 09/04/17 16: Eosinophils % 1.6 % (0.0-5.0) 09/04/17 16: Basophils % 1.1 % (0.0-2.0) 09/04/17 16: Sodium 141 mEq/L (136-145) 09/04/17 16: Potassium 3.3 mEq/L (3.5-5.1) L 09/04/17 16: Chloride 106 mEq/L (98-107) 09/04/17 16: Carbon Dioxide 28.5 mEq/L (21.0-31.0) 09/04/17 16: Anion Gap 9.8 (7.0-16.0) 09/04/17 16:27 BUN 23 mg/dL (7-25) 09/04/17 16:27 Creatinine 0.6 mg/dL (0.6-1.2) 09/04/17 16:27 Est GFR ( Amer) TNP 09/04/17 16:27 Est GFR (Non-Af Amer) TNP 09/04/17 16:27 BUN/Creatinine Ratio 38.3 09/04/17 16:27 Glucose 113 mg/dL (70-105) H 09/04/17 16: POC Glucose 96 MG/DL (70 - 105) 09/05/17 06:44 Whole Bld Lactic Acid 0.61 mmol/L (0.60-1.99) 09/04/17 16: Calcium 9.0 mg/dL (8.6-10.3) 09/04/17 16: Total Bilirubin 0.2 mg/dL (0.3-1.0) L 09/04/17 16: AST 18 U/L (13-39) 09/04/17 16: ALT 12 U/L (7-52) 09/04/17 16: Alkaline Phosphatase 58 U/L (34-104) 09/04/17 16:27 Total Protein 6.8 gm/dL (6.0-8.3) 09/04/17 16: Albumin 3.9 gm/dL (3.7-5.3) 09/04/17 16: Globulin 2.9 gm/dL 09/04/17 16: Albumin/Globulin Ratio 1.3 (1.0-1.8) 09/04/17 16:27 Triglycerides 59 mg/dL (<150) 09/04/17 16:27 Cholesterol 227 mg/dL (<200) H 09/04/17 16:27 LDL Cholesterol Direct 151 mg/dL (75-193) 09/04/17 16: HDL Cholesterol 66 mg/dL (23-92) 09/04/17 16: TSH 15.73 uIU/ml (0.34-5.60) H 09/04/17 16:27 RPR NONREACTIVE (NONREACTIVE) 09/04/17 16:27 - Physical Exam Vitals and I&O: Vital Signs Temp 97.7 F 09/11/17 20:00 Pulse 71 09/11/17 20:00 Resp 20 09/11/17 20:00 BP 136/71 09/11/17 20:00 Pulse Ox 97 09/11/17 20:00 Intake & Output 09/11/17 09/12/17 09/12/17 18:59 06:59 18:59 Intake Total 1000 Balance 1000 Intake: Oral 1000 Other: # Voids 3 # Bowel Movements 1 Active Medications: Current Medications Acetaminophen (Tylenol) 650 mg PO Q4HR PRN PRN Reason: Mild Pain / Temp above 100 Stop: 11/03/17 21:16 Al Hydrox/Mg Hydrox/Simethicone (Maalox) 30 ml PO Q4HR PRN PRN Reason: GI DISTRESS Stop: 11/03/17 21:16 Carbamazepine (Tegretol) 200 mg PO BID JORDY PRN Reason: Protocol Stop: 11/04/17 08:59 Last Admin: 09/12/17 09:06 Dose: Not Given Escitalopram Oxalate (Lexapro) 20 mg PO DAILY JORDY PRN Reason: Protocol Stop: 11/04/17 08:59 Last Admin: 09/12/17 09:06 Dose: Not Given Gabapentin (Neurontin) 100 mg PO TID [facility] Stop: 11/03/17 20:59 Last Admin: 09/12/17 13:49 Dose: 100 mg Guaifenesin/Dextromethorphan (Robitussin Dm) 10 ml PO Q4HR PRN PRN Reason: Cough Stop: 11/03/17 20:55 Levothyroxine Sodium (Synthroid) 0.1 mg PO QDAC [facility] Stop: 11/04/17 07:29 Last Admin: 09/12/17 06:34 Dose: 0.1 mg Lorazepam (Ativan) 0.5 mg PO Q6HR PRN; Protocol PRN Reason: anxiety Stop: 11/03/17 21:04 Magnesium Hydroxide (Milk Of Magnesia) 30 ml PO HS PRN PRN Reason: Constipation Metformin HCl (Glucophage) 500 mg PO BIDWM [facility] Stop: 11/04/17 07:59 Last Admin: 09/12/17 07:36 Dose: 500 mg Multivitamins/Vitamin C (Theragran) 1 tab PO DAILY [facility] Stop: 11/04/17 08:59 Last Admin: 09/12/17 09:06 Dose: Not Given Risperidone (Risperdal) 0.5 mg PO BID JORDY PRN Reason: Protocol Stop: 11/04/17 08:59 Last Admin: 09/12/17 09:06 Dose: Not Given Simvastatin (Zocor) 40 mg PO HS JORDY PRN Reason: Protocol Stop: 11/03/17 20:59 Last Admin: 09/11/17 20:37 Dose: Not Given Trazodone HCl (Desyrel) 25 mg PO HS PRN; Protocol PRN Reason: Insomnia Stop: 11/04/17 20:59 Valsartan (Diovan) 80 mg PO DAILY JORDY Stop: 11/04/17 08:59 Last Admin: 09/12/17 09:06 Dose: Not Given General: alert HEENT: NC/AT, PERRLA Neck: Supple Lungs: CTAB Neurological: alert - Procedures Procedures: Procedures Procedure Code Date GROUP PSYCHOTHERAPY 12337 10/17/15 GROUP PSYCHOTHERAPY GZHZZZZ 10/17/15 Internal Medicine Assmt/Plan - Assessment Assessment: HTN DM HYPOTHYROID bipolar disorder - Plan Plan: MONITOR GLUCOSE MONITOR BP CONTINUE CURRENT ORDERS Nutritional Asmnt/Malnutr-PDOC - Dietary Evaluation Malnutrition Findings (Please click <Entered> for more info): Nutritional Asmnt/Malnutrition Start: 09/09/17 18: 16 Text: Status: Complete Freq: Document 09/09/17 18:16 LCHENG (Rec: 09/09/17 18:23 LCHENG [email or web address]) Nutritional Asmnt/Malnutrition Patient General Information Nutritional Screening Moderate Risk Diagnosis psychosis NOS Pertinent Medical Hx/Surgical Hx HRN, DM, thyroid disorer, polyneuropathy, hypothyroidism , bipolar disorder, insomnia, major depression Subjective Information Pt seen sleeping in zaina-chair in dining room at time of visit. Spoke with nurse, pt sleeping d/t medication, consumed 60% of breakfast this morning. Per notes PO intake 50-75%. Current Diet Order/ Nutrition Support CCHO-45gm Pertinent Medications synthroid, glucophage, theragran Pertinent Labs 09/04 Na 141, K 3.3, Cl 106, BUN 23, Cr 0.6, Glucose 113, Alb 3.9 09/05 POC 96 Nutritional Hx/Data Height 5 ft Height (Calculated Centimeters) 152.4 Current Weight (lbs) 142 lb Weight (Calculated Kilograms) 64.4 Weight (Calculated Grams) 60016.1 [place] Body Weight 100 % [place] Body Weight 142 Body Mass Index (BMI) 27.7 Weight Status Overweight GI Symptoms GI Symptoms None Last BM 09/01 x 2 Difficult in: None Skin Integrity/Comment: dryness Current %PO Fair (50-74%) Estimated Nutritional Goals BEE in Kcals: Using Current wt Calories/Kcals/Kg 23-27 Kcals Calculated 3642-4565 Protein: Using Current wt Protein g/k Protein Calculated 65 Fluid: ml 1495-1755ml (1ml/kcal) Nutritional Problem 1. Problem Problem inadequate food intake Etiology possible poor appetite, cognition Signs/Symptoms: PO intake 50-75%, not meeting 100% of nutritional needs Intervention/Recommendation Comments 1. Recommend CCHO 60gm diet. Assit pt with meals as needed. 2. Monitor PO intake, wt, labs and skin integrity 3. F/U as moderate risk in 3-5 days, 2/2-2/4 Expected Outcomes/Goals Expected Outcomes/Goals 1. PO intake to meet at least 75% of nutritional needs. 2. Wt stability, skin to remain intact, labs to approach WNL.
--- NOTE | 2017-09-13 07:34 | Progress Notes ---
DATE: 09/11/2017 Dr. Bowles covering for Dr. Soto. SUBJECTIVE: Chart reviewed and the patient interviewed. Also discussed the patient's condition with the staff and reviewed records and labs. The patient is still anxious and is still in denial of her psychiatric issues and psychiatric problems. The patient also is still refusing to get her blood sugar drawn and she is uncooperative with the staff and minimizing her symptoms. She is also refusing to take psych medications thinking that "I don't need it" and that was her answer to me too. She thinks that she is above everybody else and that her IQ is high. She will continue to be uncooperative and delusional and paranoid. At the same time, no aggressive behavior. Her thoughts are disorganized. She is still refusing to eat and she gets combative at times when staff trying to redirect her. ASSESSMENT: The patient is still delusional and combative. TREATMENT PLAN: We will continue monitoring her behavior closely. Also discussed with the patient importance of getting her medications and of getting her blood sugar drawn and to monitor her blood sugar, but she still has been resisting care and refusing treatment. Also, she has been anxious and irritable. We will continue to monitor behavior and continue to work on her compliance with treatment ____ medications. JOB# [id number]
[2017-09-13] MEDS: Multivitamin Tab PO SCH (09:33)
[2017-09-13] MEDS ORDERED: Haloperidol Lactate 5 mg/mL 1mL Vial IM ONE (13:50)
--- NOTE | 2017-09-13 16:25 | Progress Notes ---
DATE: 09/12/2017 SUBJECTIVE: Chart reviewed and the patient interviewed. Also discussed the patient's condition with the staff and reviewed records and labs. The patient is hyper-mormonism and she is still in irritable and angry mood. The patient also is still refusing to take any psych medications. The patient also continued to say "God will take care of me" and refusing to take any medication. She is still paranoid and restless and agitated. ASSESSMENT: The patient is still psychotic and uncooperative with treatment. TREATMENT PLAN: Continue to monitor her behavior and her condition closely. Also, continue adjusting psychotropic medications and followup. [facility]# [id number]
--- NOTE | 2017-09-13 19:46 | Progress Notes ---
DATE: 09/13/2017 SUBJECTIVE: The patient was seen in the dining area, having breakfast. The patient appears to be guarded at this time, appears easily gets irritated, otherwise the patient appears to be in no acute distress. OBJECTIVE: VITAL SIGNS: Temperature 97.2, heart rate of 62, blood pressure 141/61, respirations of 19, and 96% on room air. HEENT: Head is atraumatic and normocephalic. Eyes: Bilateral conjunctivae are clear. Bilateral pupils are equally round and reactive. NECK: Supple. No JVD. CARDIOVASCULAR: S1 and S2, without murmur. PULMONARY: Clear to auscultation. GASTROINTESTINAL: Soft and nontender without guarding. Positive bowel sounds. MUSCULOSKELETAL: No clubbing. No cyanosis noted. ASSESSMENT: 1. Bipolar disorder. 2. Major depression. 3. Hypertension. 4. Diabetes mellitus. 5. Hyperlipidemia. 6. Hypothyroidism. PLAN: We will keep the patient inpatient Psychiatric Unit. We will follow up with a psychiatrist to monitor the patient's condition. Treatment plans were discussed with the patient's nurse. Treatment plans were discussed with Dr. Luna. JOB# [id number]
[2017-09-14] MEDS: Levothyroxine 0.1 Mg Tab PO SCH (06:35)
[2017-09-14] MEDS: Multivitamin Tab PO SCH (08:18)
--- NOTE | 2017-09-14 09:05 | General Progress Note ---
Subjective - Review of Systems Events since last encounter: patient irritable guarded in no distress Objective - Results Result Diagrams: 09/04/17 16:27 09/04/17 16: Recent Labs: Laboratory Last Values WBC 4.0 Th/cmm (4.8-10.8) L D 09/04/17 16: RBC 3.66 Mil/cmm (3.80-5.20) L 09/04/17 16: Hgb 10.6 gm/dL (12-16) L 09/04/17 16: Hct 31.6 % (41.0-60) L 09/04/17 16: MCV 86.4 fl (81-100) 09/04/17 16: MCH 29.0 pg (27.0-31.0) 09/04/17: MCHC Differential 33.6 pg (28.0-36.0) 09/04/17: RDW 13.3 % (11.5-20.0) 09/04/17: Plt Count 261 Th/cmm (150-400) D 09/04/17 16: MPV 7.3 fl 09/04/17 16: Neutrophils % 72.6 % (40.0-80.0) 09/04/17 16: Lymphocytes % 15.5 % (20.0-50.0) L 09/04/17 16: Monocytes % 9.2 % (2.0-10.0) 09/04/17 16: Eosinophils % 1.6 % (0.0-5.0) 09/04/17: Basophils % 1.1 % (0.0-2.0) 09/04/17 16: Sodium 141 mEq/L (136-145) 09/04/17 16: Potassium 3.3 mEq/L (3.5-5.1) L 09/04/17 16: Chloride 106 mEq/L (98-107) 09/04/17 16: Carbon Dioxide 28.5 mEq/L (21.0-31.0) 09/04/17 16: Anion Gap 9.8 (7.0-16.0) 09/04/17 16: BUN 23 mg/dL (7-25) 09/04/17 16:27 Creatinine 0.6 mg/dL (0.6-1.2) 09/04/17 16:27 Est GFR ( Amer) TNP 09/04/17 16:27 Est GFR (Non-Af Amer) TNP 09/04/17 16:27 BUN/Creatinine Ratio 38.3 09/04/17 16:27 Glucose 113 mg/dL (70-105) H 09/04/17 16:27 POC Glucose 96 MG/DL (70 - 105) 09/05/17 06:44 Whole Bld Lactic Acid 0.61 mmol/L (0.60-1.99) 09/04/17 16: Calcium 9.0 mg/dL (8.6-10.3) 09/04/17 16: Total Bilirubin 0.2 mg/dL (0.3-1.0) L 09/04/17 16: AST 18 U/L (13-39) 09/04/17 16: ALT 12 U/L (7-52) 09/04/17 16: Alkaline Phosphatase 58 U/L (34-104) 09/04/17 16: Total Protein 6.8 gm/dL (6.0-8.3) 09/04/17 16: Albumin 3.9 gm/dL (3.7-5.3) 09/04/17 16: Globulin 2.9 gm/dL 09/04/17 16: Albumin/Globulin Ratio 1.3 (1.0-1.8) 09/04/17 16: Triglycerides 59 mg/dL (<150) 09/04/17 16: Cholesterol 227 mg/dL (<200) H 09/04/17 16:27 LDL Cholesterol Direct 151 mg/dL (75-193) 09/04/17 16: HDL Cholesterol 66 mg/dL (23-92) 09/04/17 16: TSH 15.73 uIU/ml (0.34-5.60) H 09/04/17 16:27 RPR NONREACTIVE (NONREACTIVE) 09/04/17 16:27 - Physical Exam Vitals and I&O: Vital Signs Temp 97.6 F 09/13/17 21: Pulse 59 09/14/17 08:19 Resp 18 09/13/17 21:27 BP 145/60 09/14/17 08:19 Pulse Ox 100 09/13/17 21:27 Intake & Output 09/13/17 09/14/17 09/14/17 18:59 06:59 18:59 Intake Total 900 120 Balance 900 120 Intake: Oral 900 120 Other: # Voids 4 1 # Bowel Movements 0 Active Medications: Current Medications Acetaminophen (Tylenol) 650 mg PO Q4HR PRN PRN Reason: Mild Pain / Temp above 100 Stop: 11/03/17 21:16 Al Hydrox/Mg Hydrox/Simethicone (Maalox) 30 ml PO Q4HR PRN PRN Reason: GI DISTRESS Stop: 11/03/17 21:16 Carbamazepine (Tegretol) 200 mg PO BID JORDY PRN Reason: Protocol Stop: 11/04/17 08:59 Last Admin: 09/14/17 08:18 Dose: 200 mg Escitalopram Oxalate (Lexapro) 20 mg PO DAILY JORDY PRN Reason: Protocol Stop: 11/04/17 08:59 Last Admin: 09/14/17 08:17 Dose: 20 mg Gabapentin (Neurontin) 100 mg PO TID [facility] Stop: 11/03/17 20:59 Last Admin: 09/14/17 08:17 Dose: 100 mg Guaifenesin/Dextromethorphan (Robitussin Dm) 10 ml PO Q4HR PRN PRN Reason: Cough Stop: 11/03/17 20:55 Levothyroxine Sodium (Synthroid) 0.1 mg PO QDAC [facility] Stop: 11/04/17 07:29 Last Admin: 09/14/17 06:35 Dose: Not Given Lorazepam (Ativan) 0.5 mg PO Q6HR PRN; Protocol PRN Reason: anxiety Stop: 11/03/17 21:04 Magnesium Hydroxide (Milk Of Magnesia) 30 ml PO HS PRN PRN Reason: Constipation Metformin HCl (Glucophage) 500 mg PO BIDWM [facility] Stop: 11/04/17 07:59 Last Admin: 09/14/17 08:13 Dose: 500 mg Multivitamins/Vitamin C (Theragran) 1 tab PO DAILY [facility] Stop: 11/04/17 08:59 Last Admin: 09/14/17 08:18 Dose: 1 tab Risperidone (Risperdal) 0.5 mg PO BID JORDY PRN Reason: Protocol Stop: 11/04/17 08:59 Last Admin: 09/14/17 08:19 Dose: 0.5 mg Simvastatin (Zocor) 40 mg PO HS JORDY PRN Reason: Protocol Stop: 11/03/17 20:59 Last Admin: 09/13/17 21:00 Dose: Not Given Trazodone HCl (Desyrel) 25 mg PO HS PRN; Protocol PRN Reason: Insomnia Stop: 11/04/17 20:59 Valsartan (Diovan) 80 mg PO DAILY JORDY Stop: 11/04/17 08:59 Last Admin: 09/14/17 08:19 Dose: 80 mg - Procedures Procedures: Procedures Procedure Code Date GROUP PSYCHOTHERAPY 04690 10/17/15 GROUP PSYCHOTHERAPY GZHZZZZ 10/17/15 Assessment/Plan - Problem List Patient Problems: All Active Problems Mood swings (Acute) F39 Nutritional Asmnt/Malnutr-PDOC - Dietary Evaluation Malnutrition Findings (Please click <Entered> for more info): Nutritional Asmnt/Malnutrition Start: 09/09/17 18: 16 Text: Status: Complete Freq: Document 09/09/17 18:16 LCHENG (Rec: 09/09/17 18:23 LCHENG [email or web address]) Nutritional Asmnt/Malnutrition Patient General Information Nutritional Screening Moderate Risk Diagnosis psychosis NOS Pertinent Medical Hx/Surgical Hx HRN, DM, thyroid disorer, polyneuropathy, hypothyroidism , bipolar disorder, insomnia, major depression Subjective Information Pt seen sleeping in zaina-chair in dining room at time of visit. Spoke with nurse, pt sleeping d/t medication, consumed 60% of breakfast this morning. Per notes PO intake 50-75%. Current Diet Order/ Nutrition Support CCHO-45 Pertinent Medications synthroid, glucophage, theragran Pertinent Labs 09/04 Na 141, K 3.3, Cl 106, BUN 23, Cr 0.6, Glucose 113, Alb 3.9 09/05 POC 96 Nutritional Hx/Data Height 1.52 m Height (Calculated Centimeters) 152.4 Current Weight (lbs) 64.41 kg Weight (Calculated Kilograms) 64.4 Weight (Calculated Grams) 97692.1 [place] Body Weight 100 % [place] Body Weight 142 Body Mass Index (BMI) 27.7 Weight Status Overweight GI Symptoms GI Symptoms None Last BM 09/01 x 2 Difficult in: None Skin Integrity/Comment: dryness Current %PO Fair (50-74%) Estimated Nutritional Goals BEE in Kcals: Using Current wt Calories/Kcals/Kg 23-27 Kcals Calculated 6747-7340 Protein: Using Current wt Protein g/k Protein Calculated 65 Fluid: ml 1495-1755ml (1ml/kcal) Nutritional Problem 1. Problem Problem inadequate food intake Etiology possible poor appetite, cognition Signs/Symptoms: PO intake 50-75%, not meeting 100% of nutritional needs Intervention/Recommendation Comments 1. Recommend CCHO 60gm diet. Assit pt with meals as needed. 2. Monitor PO intake, wt, labs and skin integrity 3. F/U as moderate risk in 3-5 days, 2/2-2/4 Expected Outcomes/Goals Expected Outcomes/Goals 1. PO intake to meet at least 75% of nutritional needs. 2. Wt stability, skin to remain intact, labs to approach WNL.
[2017-09-15] MEDS: Levothyroxine 0.1 Mg Tab PO SCH (06:36)
[2017-09-15] MEDS: Multivitamin Tab PO SCH (08:28)
--- NOTE | 2017-09-15 08:59 | Progress Notes ---
DATE: 09/13/2017 SUBJECTIVE: Chart reviewed and the patient interviewed. Also, discussed the patient's condition with the staff and reviewed records and labs. The patient is covering her head with blanket and going around to the unit with head covered. She also is still hyper-jain and because of that she is selective with taking her medications and refused some. She also is still easily agitated and irritable. The patient also still has disorganized thoughts and is trying to leave the facility. ASSESSMENT: The patient is still delusional and agitated and needs close observation. TREATMENT PLAN: Continue to monitor her behavior and her condition closely. Also, try to the patient with psychotropic medications, hopefully, she will take all her medications. Also, we will continue to monitor her behavior closely. Continue to follow up. [facility]# [id number]
--- NOTE | 2017-09-15 21:03 | Internal Medicine Prog Note ---
Internal Medicine Subjective - Subjective Service Date: 09/15/17 Patient is:: awake, verbal Per staff patient has:: tolerating meds Internal Medicine Objective - Results Result Diagrams: 09/04/17 16:09/04/17 16: Recent Labs: Laboratory Last Values WBC 4.0 Th/cmm (4.8-10.8) L D 09/04/17 16: RBC 3.66 Mil/cmm (3.80-5.20) L 09/04/17 16: Hgb 10.6 gm/dL (12-16) L 09/04/17 16: Hct 31.6 % (41.0-60) L 09/04/17 16: MCV 86.4 fl (81-100) 09/04/17 16: MCH 29.0 pg (27.0-31.0) 09/04/17 16: MCHC Differential 33.6 pg (28.0-36.0) 09/04/17 16: RDW 13.3 % (11.5-20.0) 09/04/17 16: Plt Count 261 Th/cmm (150-400) D 09/04/17 16: MPV 7.3 fl 09/04/17 16: Neutrophils % 72.6 % (40.0-80.0) 09/04/17 16: Lymphocytes % 15.5 % (20.0-50.0) L 09/04/17 16: Monocytes % 9.2 % (2.0-10.0) 09/04/17 16: Eosinophils % 1.6 % (0.0-5.0) 09/04/17 16: Basophils % 1.1 % (0.0-2.0) 09/04/17 16: Sodium 141 mEq/L (136-145) 09/04/17 16: Potassium 3.3 mEq/L (3.5-5.1) L 09/04/17 16: Chloride 106 mEq/L (98-107) 09/04/17 16: Carbon Dioxide 28.5 mEq/L (21.0-31.0) 09/04/17 16: Anion Gap 9.8 (7.0-16.0) 09/04/17 16:27 BUN 23 mg/dL (7-25) 09/04/17 16:27 Creatinine 0.6 mg/dL (0.6-1.2) 09/04/17 16:27 Est GFR ( Amer) TNP 09/04/17 16:27 Est GFR (Non-Af Amer) TNP 09/04/17 16: BUN/Creatinine Ratio 38.3 09/04/17 16: Glucose 113 mg/dL (70-105) H 09/04/17 16: POC Glucose 106 MG/DL (70 - 105) H 09/15/17 16:30 Whole Bld Lactic Acid 0.61 mmol/L (0.60-1.99) 09/04/17 16: Calcium 9.0 mg/dL (8.6-10.3) 09/04/17: Total Bilirubin 0.2 mg/dL (0.3-1.0) L 09/04/17 16: AST 18 U/L (13-39) 09/04/17 16: ALT 12 U/L (7-52) 09/04/17 16: Alkaline Phosphatase 58 U/L (34-104) 09/04/17 16: Total Protein 6.8 gm/dL (6.0-8.3) 09/04/17 16: Albumin 3.9 gm/dL (3.7-5.3) 09/04/17 16: Globulin 2.9 gm/dL 09/04/17 16: Albumin/Globulin Ratio 1.3 (1.0-1.8) 09/04/17 16: Triglycerides 59 mg/dL (<150) 09/04/17 16:27 Cholesterol 227 mg/dL (<200) H 09/04/17 16:27 LDL Cholesterol Direct 151 mg/dL (75-193) 09/04/17 16: HDL Cholesterol 66 mg/dL (23-92) 09/04/17 16: TSH 15.73 uIU/ml (0.34-5.60) H 09/04/17 16:27 RPR NONREACTIVE (NONREACTIVE) 09/04/17 16:27 - Physical Exam Vitals and I&O: Vital Signs Temp 97.8 F 09/15/17 20:03 Pulse 65 09/15/17 20:03 Resp 18 02/05/18 20:03 BP 102/42 09/15/17 20:03 Pulse Ox 96 09/15/17 20:03 Intake & Output 09/15/17 09/15/17 09/16/17 06:59 18:59 06:59 Intake Total 240 Balance 240 Intake: Oral 240 Other: # Voids 3 4 1 # Bowel Movements 0 1 Active Medications: Current Medications Acetaminophen (Tylenol) 650 mg PO Q4HR PRN PRN Reason: Mild Pain / Temp above 100 Stop: 11/03/17 21:16 Al Hydrox/Mg Hydrox/Simethicone (Maalox) 30 ml PO Q4HR PRN PRN Reason: GI DISTRESS Stop: 11/03/17 21:16 Carbamazepine (Tegretol) 200 mg PO BID JORDY PRN Reason: Protocol Stop: 11/04/17 08:59 Last Admin: 09/15/17 16:09 Dose: 200 mg Escitalopram Oxalate (Lexapro) 20 mg PO DAILY JORDY PRN Reason: Protocol Stop: 11/04/17 08:59 Last Admin: 09/15/17 08:28 Dose: 20 mg Gabapentin (Neurontin) 100 mg PO TID JORDY Stop: 11/03/17 20:59 Last Admin: 09/15/17 13:18 Dose: 100 mg Guaifenesin/Dextromethorphan (Robitussin Dm) 10 ml PO Q4HR PRN PRN Reason: Cough Stop: 11/03/17 20:55 Levothyroxine Sodium (Synthroid) 0.1 mg PO QDAC JORDY Stop: 11/04/17 07:29 Last Admin: 09/15/17 06:36 Dose: 0.1 mg Lorazepam (Ativan) 0.5 mg PO Q6HR PRN; Protocol PRN Reason: anxiety Stop: 11/03/17 21:04 Magnesium Hydroxide (Milk Of Magnesia) 30 ml PO HS PRN PRN Reason: Constipation Metformin HCl (Glucophage) 500 mg PO BIDWM JORDY Stop: 11/04/17 07:59 Last Admin: 09/15/17 18:31 Dose: 500 mg Multivitamins/Vitamin C (Theragran) 1 tab PO DAILY JORDY Stop: 11/04/17 08:59 Last Admin: 09/15/17 08:28 Dose: 1 tab Risperidone (Risperdal) 0.5 mg PO BID JORDY PRN Reason: Protocol Stop: 11/04/17 08:59 Last Admin: 09/15/17 16:09 Dose: 0.5 mg Simvastatin (Zocor) 40 mg PO HS JORDY PRN Reason: Protocol Stop: 11/03/17 20:59 Last Admin: 09/14/17 21:40 Dose: 40 mg Trazodone HCl (Desyrel) 25 mg PO HS PRN; Protocol PRN Reason: Insomnia Stop: 11/04/17 20:59 Valsartan (Diovan) 80 mg PO DAILY JORDY Stop: 11/04/17 08:59 Last Admin: 09/15/17 08:28 Dose: 80 mg General: alert HEENT: NC/AT, PERRLA Neck: Supple Lungs: CTAB Neurological: alert - Procedures Procedures: Procedures Procedure Code Date GROUP PSYCHOTHERAPY 13811 10/17/15 GROUP PSYCHOTHERAPY GZHZZZZ 10/17/15 Nutritional Asmnt/Malnutr-PDOC - Dietary Evaluation Malnutrition Findings (Please click <Entered> for more info): Nutritional Asmnt/Malnutrition Start: 09/09/17 18: 16 Text: Status: Complete Freq: Document 09/09/17 18:16 LCHENG (Rec: 09/09/17 18:23 LCHENG [email or web address]) Nutritional Asmnt/Malnutrition Patient General Information Nutritional Screening Moderate Risk Diagnosis psychosis NOS Pertinent Medical Hx/Surgical Hx HRN, DM, thyroid disorer, polyneuropathy, hypothyroidism , bipolar disorder, insomnia, major depression Subjective Information Pt seen sleeping in zaina-chair in dining room at time of visit. Spoke with nurse, pt sleeping d/t medication, consumed 60% of breakfast this morning. Per notes PO intake 50-75%. Current Diet Order/ Nutrition Support CCHO-45gm Pertinent Medications synthroid, glucophage, theragran Pertinent Labs 09/04 Na 141, K 3.3, Cl 106, BUN 23, Cr 0.6, Glucose 113, Alb 3.9 09/05 POC 96 Nutritional Hx/Data Height 1.52 m Height (Calculated Centimeters) 152.4 Current Weight (lbs) 64.41 kg Weight (Calculated Kilograms) 64.4 Weight (Calculated Grams) 93191.1 [place] Body Weight 100 % [place] Body Weight 142 Body Mass Index (BMI) 27.7 Weight Status Overweight GI Symptoms GI Symptoms None Last BM 09/01 x 2 Difficult in: None Skin Integrity/Comment: dryness Current %PO Fair (50-74%) Estimated Nutritional Goals BEE in Kcals: Using Current wt Calories/Kcals/Kg 23-27 Kcals Calculated 6824-5424 Protein: Using Current wt Protein g/k Protein Calculated 65 Fluid: ml 1495-1755ml (1ml/kcal) Nutritional Problem 1. Problem Problem inadequate food intake Etiology possible poor appetite, cognition Signs/Symptoms: PO intake 50-75%, not meeting 100% of nutritional needs Intervention/Recommendation Comments 1. Recommend CCHO 60gm diet. Assit pt with meals as needed. 2. Monitor PO intake, wt, labs and skin integrity 3. F/U as moderate risk in 3-5 days, 2/2-2/4 Expected Outcomes/Goals Expected Outcomes/Goals 1. PO intake to meet at least 75% of nutritional needs. 2. Wt stability, skin to remain intact, labs to approach WNL.
[2017-09-16] MEDS: Levothyroxine 0.1 Mg Tab PO SCH (06:40)
--- NOTE | 2017-09-16 06:55 | Progress Notes ---
DATE: 09/15/2017 SUBJECTIVE: The patient seen, chart reviewed, discussed with staff. The patient is refusing to talk to me. Staff noting she remains confused, wandering. She is not screaming as much, less aggressive, but remains hyper-mormonism, selective with medications. Still at times irritable, agitated, requiring a lot of staff redirection and prompting. MEDICATIONS: Reviewed. ASSESSMENT: The patient remains hyper-mormonism, still aggressive at times, poor understanding of why she is in the hospital, disoriented, refusing to talk to me today. PLAN: We will continue to monitor, encourage better med compliance. JOB# [id number]
--- NOTE | 2017-09-16 08:53 | Diagnostic Imaging Report ---
CT scan of the brain without contrast History: Trauma Total DLP equals 585 CTDI equals 35.8 Axial sections were obtained from the base of the skull to the vertex. There is a normal ventricular system size. No focal parenchymal lesions are seen. No evidence of any mass effect or shift of midline structures. No extra-axial masses or abnormal fluid collections. Impression: Negative examination.
[2017-09-16] MEDS: Multivitamin Tab PO SCH (09:32)
--- NOTE | 2017-09-16 12:26 | Internal Medicine Prog Note ---
Internal Medicine Subjective - Subjective Service Date: 09/16/17 Patient is:: awake, verbal Per staff patient has:: tolerating meds Internal Medicine Objective - Results Result Diagrams: 09/04/17 16:09/04/17 16: Recent Labs: Laboratory Last Values WBC 4.0 Th/cmm (4.8-10.8) L D 09/04/17 16: RBC 3.66 Mil/cmm (3.80-5.20) L 09/04/17 16: Hgb 10.6 gm/dL (12-16) L 09/04/17 16: Hct 31.6 % (41.0-60) L 09/04/17 16: MCV 86.4 fl (81-100) 09/04/17 16: MCH 29.0 pg (27.0-31.0) 09/04/17 16: MCHC Differential 33.6 pg (28.0-36.0) 09/04/17 16: RDW 13.3 % (11.5-20.0) 09/04/17 16: Plt Count 261 Th/cmm (150-400) D 09/04/17 16: MPV 7.3 fl 09/04/17 16: Neutrophils % 72.6 % (40.0-80.0) 09/04/17 16: Lymphocytes % 15.5 % (20.0-50.0) L 09/04/17 16: Monocytes % 9.2 % (2.0-10.0) 09/04/17 16: Eosinophils % 1.6 % (0.0-5.0) 09/04/17 16: Basophils % 1.1 % (0.0-2.0) 09/04/17 16: Sodium 141 mEq/L (136-145) 09/04/17 16: Potassium 3.3 mEq/L (3.5-5.1) L 09/04/17 16: Chloride 106 mEq/L (98-107) 09/04/17 16: Carbon Dioxide 28.5 mEq/L (21.0-31.0) 09/04/17 16: Anion Gap 9.8 (7.0-16.0) 09/04/17 16:27 BUN 23 mg/dL (7-25) 09/04/17 16:27 Creatinine 0.6 mg/dL (0.6-1.2) 09/04/17 16:27 Est GFR ( Amer) TNP 09/04/17 16:27 Est GFR (Non-Af Amer) TNP 09/04/17 16:27 BUN/Creatinine Ratio 38.3 09/04/17 16:27 Glucose 113 mg/dL (70-105) H 09/04/17 16: POC Glucose 106 MG/DL (70 - 105) H 09/15/17 16:30 Whole Bld Lactic Acid 0.61 mmol/L (0.60-1.99) 09/04/17 16: Calcium 9.0 mg/dL (8.6-10.3) 09/04/17 16: Total Bilirubin 0.2 mg/dL (0.3-1.0) L 09/04/17 16: AST 18 U/L (13-39) 09/04/17 16: ALT 12 U/L (7-52) 09/04/17 16: Alkaline Phosphatase 58 U/L (34-104) 09/04/17 16:27 Total Protein 6.8 gm/dL (6.0-8.3) 09/04/17 16: Albumin 3.9 gm/dL (3.7-5.3) 09/04/17 16: Globulin 2.9 gm/dL 09/04/17 16: Albumin/Globulin Ratio 1.3 (1.0-1.8) 09/04/17 16:27 Triglycerides 59 mg/dL (<150) 09/04/17 16:27 Cholesterol 227 mg/dL (<200) H 09/04/17 16:27 LDL Cholesterol Direct 151 mg/dL (75-193) 09/04/17 16: HDL Cholesterol 66 mg/dL (23-92) 09/04/17 16: TSH 15.73 uIU/ml (0.34-5.60) H 09/04/17 16:27 RPR NONREACTIVE (NONREACTIVE) 09/04/17 16:27 - Physical Exam Vitals and I&O: Vital Signs Temp 98.2 F 09/16/17 06:09 Pulse 65 09/16/17 09:32 Resp 19 02/06/18 06:09 BP 128/58 09/16/17 09:32 Pulse Ox 100 09/16/17 06:09 Intake & Output 09/15/17 09/16/17 09/16/17 18:59 06:59 18:59 Intake Total 240 Balance 240 Intake: Oral 240 Other: # Voids 4 3 # Bowel Movements 1 0 Active Medications: Current Medications Acetaminophen (Tylenol) 650 mg PO Q4HR PRN PRN Reason: Mild Pain / Temp above 100 Stop: 11/03/17 21:16 Al Hydrox/Mg Hydrox/Simethicone (Maalox) 30 ml PO Q4HR PRN PRN Reason: GI DISTRESS Stop: 11/03/17 21:16 Carbamazepine (Tegretol) 200 mg PO BID JORDY PRN Reason: Protocol Stop: 11/04/17 08:59 Last Admin: 09/16/17 09:32 Dose: 200 mg Escitalopram Oxalate (Lexapro) 20 mg PO DAILY JORDY PRN Reason: Protocol Stop: 11/04/17 08:59 Last Admin: 09/16/17 09:32 Dose: 20 mg Gabapentin (Neurontin) 100 mg PO TID [facility] Stop: 11/03/17 20:59 Last Admin: 09/16/17 09:32 Dose: 100 mg Guaifenesin/Dextromethorphan (Robitussin Dm) 10 ml PO Q4HR PRN PRN Reason: Cough Stop: 11/03/17 20:55 Levothyroxine Sodium (Synthroid) 0.1 mg PO QDAC JORDY Stop: 11/04/17 07:29 Last Admin: 09/16/17 06:40 Dose: 0.1 mg Lorazepam (Ativan) 0.5 mg PO Q6HR PRN; Protocol PRN Reason: anxiety Stop: 11/03/17 21:04 Magnesium Hydroxide (Milk Of Magnesia) 30 ml PO HS PRN PRN Reason: Constipation Metformin HCl (Glucophage) 500 mg PO BIDWM [facility] Stop: 11/04/17 07:59 Last Admin: 09/16/17 09:54 Dose: 500 mg Multivitamins/Vitamin C (Theragran) 1 tab PO DAILY JORDY Stop: 11/04/17 08:59 Last Admin: 09/16/17 09:32 Dose: 1 tab Risperidone (Risperdal) 0.5 mg PO BID JORDY PRN Reason: Protocol Stop: 11/04/17 08:59 Last Admin: 09/16/17 09:32 Dose: 0.5 mg Simvastatin (Zocor) 40 mg PO HS JORDY PRN Reason: Protocol Stop: 11/03/17 20:59 Last Admin: 09/15/17 21:44 Dose: 40 mg Trazodone HCl (Desyrel) 25 mg PO HS PRN; Protocol PRN Reason: Insomnia Stop: 11/04/17 20:59 Valsartan (Diovan) 80 mg PO DAILY JORDY Stop: 11/04/17 08:59 Last Admin: 09/16/17 09:32 Dose: 80 mg General: alert HEENT: NC/AT, PERRLA Neck: Supple Lungs: CTAB Neurological: alert - Procedures Procedures: Procedures Procedure Code Date GROUP PSYCHOTHERAPY 89978 10/17/15 GROUP PSYCHOTHERAPY GZHZZZZ 10/17/15 Internal Medicine Assmt/Plan - Assessment Assessment: HTN DM HYPOTHYROID bipolar disorder - Plan Plan: MONITOR GLUCOSE MONITOR BP CONTINUE CURRENT ORDERS Nutritional Asmnt/Malnutr-PDOC - Dietary Evaluation Malnutrition Findings (Please click <Entered> for more info): Nutritional Asmnt/Malnutrition Start: 09/09/17 18: 16 Text: Status: Complete Freq: Document 09/09/17 18:16 [facility] (Rec: 09/09/17 18:23 HENG [email or web address]) Nutritional Asmnt/Malnutrition Patient General Information Nutritional Screening Moderate Risk Diagnosis psychosis NOS Pertinent Medical Hx/Surgical Hx HRN, DM, thyroid disorer, polyneuropathy, hypothyroidism , bipolar disorder, insomnia, major depression Subjective Information Pt seen sleeping in zaina-chair in dining room at time of visit. Spoke with nurse, pt sleeping d/t medication, consumed 60% of breakfast this morning. Per notes PO intake 50-75%. Current Diet Order/ Nutrition Support CCHO-45gm Pertinent Medications synthroid, glucophage, theragran Pertinent Labs 09/04 Na 141, K 3.3, Cl 106, BUN 23, Cr 0.6, Glucose 113, Alb 3.9 09/05 POC 96 Nutritional Hx/Data Height 5 ft Height (Calculated Centimeters) 152.4 Current Weight (lbs) 142 lb Weight (Calculated Kilograms) 64.4 Weight (Calculated Grams) 11900.1 [place] Body Weight 100 % [place] Body Weight 142 Body Mass Index (BMI) 27.7 Weight Status Overweight GI Symptoms GI Symptoms None Last BM 09/01 x 2 Difficult in: None Skin Integrity/Comment: dryness Current %PO Fair (50-74%) Estimated Nutritional Goals BEE in Kcals: Using Current wt Calories/Kcals/Kg 23-27 Kcals Calculated 7308-3179 Protein: Using Current wt Protein g/k Protein Calculated 65 Fluid: ml 1495-1755ml (1ml/kcal) Nutritional Problem 1. Problem Problem inadequate food intake Etiology possible poor appetite, cognition Signs/Symptoms: PO intake 50-75%, not meeting 100% of nutritional needs Intervention/Recommendation Comments 1. Recommend CCHO 60gm diet. Assit pt with meals as needed. 2. Monitor PO intake, wt, labs and skin integrity 3. F/U as moderate risk in 3-5 days, 2/2-2/4 Expected Outcomes/Goals Expected Outcomes/Goals 1. PO intake to meet at least 75% of nutritional needs. 2. Wt stability, skin to remain intact, labs to approach WNL.
--- NOTE | 2017-09-16 19:01 | Progress Notes ---
DATE: 09/16/2017 SUBJECTIVE: The patient seen, chart reviewed, discussed with staff. The patient remains agitated, aggressive; AO to name, not place, not situation and states she wants to go to an independent living, fixated on her legal paperwork, still confused at times, still selective with medications, requiring a lot of redirection and prompting. However, she has calmed down and she is with noted improvement since her admission. ASSESSMENT: The patient is still impulsive, unpredictable, but improvement noted, seems that she is overall calmer. PLAN: We will continue to monitor. Medications reviewed. We will coordinate care with social work regarding safe discharge plan and get psychiatric followup. JOB# [id number]
--- NOTE | 2017-09-17 07:21 | Progress Notes ---
DATE: 09/14/2017 SUBJECTIVE: Chart reviewed and the patient interviewed. Also discussed the patient's condition with the staff and reviewed records and labs. The patient was extremely agitated and irritable yesterday and she was threatening staff and she was yelling at staff and she was verbally abusive and the patient had to be given injection of 3 mg of Haldol and 1 mg Ativan yesterday in order to calm her down. The patient is still refusing to take medications and she is still resisting care and severely irritable and paranoid. She also still has episodes of yelling and screaming, although at this time, she seems to be sleepy from the effect of the injection. ASSESSMENT: The patient is still agitated and aggressive. TREATMENT PLAN: We will continue monitoring her behavior and her condition closely and we will continue monitoring her behavior. Also, continue to work on her compliance with taking medications. JOB# [id number]
[2017-09-17] MEDS: Levothyroxine 0.1 Mg Tab PO SCH (08:34)
[2017-09-17] MEDS: Multivitamin Tab PO SCH ×2 (08:35→08:48)
--- NOTE | 2017-09-17 09:39 | General Progress Note ---
Subjective - Review of Systems Events since last encounter: patient still agitated, aggressive Objective - Results Result Diagrams: 09/04/17 16:27 09/04/17 16: Recent Labs: Laboratory Last Values WBC 4.0 Th/cmm (4.8-10.8) L D 09/04/17 16: RBC 3.66 Mil/cmm (3.80-5.20) L 09/04/17 16: Hgb 10.6 gm/dL (12-16) L 09/04/17 16: Hct 31.6 % (41.0-60) L 09/04/17 16: MCV 86.4 fl (81-100) 09/04/17 16: MCH 29.0 pg (27.0-31.0) 09/04/17: MCHC Differential 33.6 pg (28.0-36.0) 09/04/17 16: RDW 13.3 % (11.5-20.0) 09/04/17 16: Plt Count 261 Th/cmm (150-400) D 09/04/17 16: MPV 7.3 fl 09/04/17 16: Neutrophils % 72.6 % (40.0-80.0) 09/04/17 16: Lymphocytes % 15.5 % (20.0-50.0) L 09/04/17 16: Monocytes % 9.2 % (2.0-10.0) 09/04/17 16: Eosinophils % 1.6 % (0.0-5.0) 09/04/17 16: Basophils % 1.1 % (0.0-2.0) 09/04/17 16: Sodium 141 mEq/L (136-145) 09/04/17 16: Potassium 3.3 mEq/L (3.5-5.1) L 09/04/17 16: Chloride 106 mEq/L (98-107) 09/04/17 16: Carbon Dioxide 28.5 mEq/L (21.0-31.0) 09/04/17 16: Anion Gap 9.8 (7.0-16.0) 09/04/17 16: BUN 23 mg/dL (7-25) 09/04/17 16:27 Creatinine 0.6 mg/dL (0.6-1.2) 09/04/17 16:27 Est GFR ( Amer) TNP 09/04/17 16:27 Est GFR (Non-Af Amer) TNP 09/04/17 16:27 BUN/Creatinine Ratio 38.3 09/04/17 16:27 Glucose 113 mg/dL (70-105) H 09/04/17 16:27 POC Glucose 106 MG/DL (70 - 105) H 09/15/17 16:30 Whole Bld Lactic Acid 0.61 mmol/L (0.60-1.99) 09/04/17 16: Calcium 9.0 mg/dL (8.6-10.3) 09/04/17 16: Total Bilirubin 0.2 mg/dL (0.3-1.0) L 09/04/17 16:27 AST 18 U/L (13-39) 09/04/17 16:27 ALT 12 U/L (7-52) 09/04/17 16: Alkaline Phosphatase 58 U/L (34-104) 09/04/17 16:27 Total Protein 6.8 gm/dL (6.0-8.3) 09/04/17 16: Albumin 3.9 gm/dL (3.7-5.3) 09/04/17 16:27 Globulin 2.9 gm/dL 09/04/17 16:27 Albumin/Globulin Ratio 1.3 (1.0-1.8) 09/04/17 16:27 Triglycerides 59 mg/dL (<150) 09/04/17 16:27 Cholesterol 227 mg/dL (<200) H 09/04/17 16:27 LDL Cholesterol Direct 151 mg/dL (75-193) 09/04/17 16:27 HDL Cholesterol 66 mg/dL (23-92) 09/04/17 16:27 TSH 15.73 uIU/ml (0.34-5.60) H 09/04/17 16:27 RPR NONREACTIVE (NONREACTIVE) 09/04/17 16:27 - Physical Exam Vitals and I&O: Vital Signs Temp 97.4 F 09/17/17 06:01 Pulse 74 09/17/17 08:35 Resp 20 09/17/17 06:01 BP 134/61 09/17/17 08:35 Pulse Ox 98 09/17/17 06:01 Intake & Output 09/16/17 09/17/17 09/17/17 18:59 06:59 18:59 Intake Total 1800 240 Balance 1800 240 Intake: Oral 1800 240 Other: # Voids 4 2 # Bowel Movements 0 0 Active Medications: Current Medications Acetaminophen (Tylenol) 650 mg PO Q4HR PRN PRN Reason: Mild Pain / Temp above 100 Stop: 11/03/17 21:16 Al Hydrox/Mg Hydrox/Simethicone (Maalox) 30 ml PO Q4HR PRN PRN Reason: GI DISTRESS Stop: 11/03/17 21:16 Carbamazepine (Tegretol) 200 mg PO BID JORDY PRN Reason: Protocol Stop: 11/04/17 08:59 Last Admin: 09/17/17 08:35 Dose: 200 mg Escitalopram Oxalate (Lexapro) 20 mg PO DAILY JORDY PRN Reason: Protocol Stop: 11/04/17 08:59 Last Admin: 09/17/17 08:35 Dose: 20 mg Gabapentin (Neurontin) 100 mg PO TID [facility] Stop: 11/03/17 20:59 Last Admin: 09/17/17 08:43 Dose: Not Given Guaifenesin/Dextromethorphan (Robitussin Dm) 10 ml PO Q4HR PRN PRN Reason: Cough Stop: 11/03/17 20:55 Levothyroxine Sodium (Synthroid) 0.1 mg PO QDAC [facility] Stop: 11/04/17 07:29 Last Admin: 09/17/17 08:34 Dose: 0.1 mg Lorazepam (Ativan) 0.5 mg PO Q6HR PRN; Protocol PRN Reason: anxiety Stop: 11/03/17 21:04 Magnesium Hydroxide (Milk Of Magnesia) 30 ml PO HS PRN PRN Reason: Constipation Metformin HCl (Glucophage) 500 mg PO BIDWM [facility] Stop: 11/04/17 07:59 Last Admin: 09/17/17 08:34 Dose: 500 mg Multivitamins/Vitamin C (Theragran) 1 tab PO DAILY [facility] Stop: 11/04/17 08:59 Last Admin: 09/17/17 08:48 Dose: Not Given Risperidone (Risperdal) 0.5 mg PO BID JORDY PRN Reason: Protocol Stop: 11/04/17 08:59 Last Admin: 09/17/17 08:33 Dose: 0.5 mg Simvastatin (Zocor) 40 mg PO HS JORDY PRN Reason: Protocol Stop: 11/03/17 20:59 Last Admin: 09/16/17 21:55 Dose: Not Given Trazodone HCl (Desyrel) 25 mg PO HS PRN; Protocol PRN Reason: Insomnia Stop: 11/04/17 20:59 Valsartan (Diovan) 80 mg PO DAILY JORDY Stop: 11/04/17 08:59 Last Admin: 09/17/17 08:35 Dose: 80 mg - Procedures Procedures: Procedures Procedure Code Date GROUP PSYCHOTHERAPY 53138 10/17/15 GROUP PSYCHOTHERAPY GZHZZZZ 10/17/15 Assessment/Plan - Problem List Patient Problems: All Active Problems Mood swings (Acute) F39 Nutritional Asmnt/Malnutr-PDOC - Dietary Evaluation Malnutrition Findings (Please click <Entered> for more info): Nutritional Asmnt/Malnutrition Start: 09/09/17 18: 16 Text: Status: Complete Freq: Document 09/09/17 18:16 [facility] (Rec: 09/09/17 18:23 LCHENG [email or web address]) Nutritional Asmnt/Malnutrition Patient General Information Nutritional Screening Moderate Risk Diagnosis psychosis NOS Pertinent Medical Hx/Surgical Hx HRN, DM, thyroid disorer, polyneuropathy, hypothyroidism , bipolar disorder, insomnia, major depression Subjective Information Pt seen sleeping in zaina-chair in dining room at time of visit. Spoke with nurse, pt sleeping d/t medication, consumed 60% of breakfast this morning. Per notes PO intake 50-75%. Current Diet Order/ Nutrition Support CCHO-45 Pertinent Medications synthroid, glucophage, theragran Pertinent Labs 09/04 Na 141, K 3.3, Cl 106, BUN 23, Cr 0.6, Glucose 113, Alb 3.9 09/05 POC 96 Nutritional Hx/Data Height 1.52 m Height (Calculated Centimeters) 152.4 Current Weight (lbs) 64.41 kg Weight (Calculated Kilograms) 64.4 Weight (Calculated Grams) 61435.1 [place] Body Weight 100 % [place] Body Weight 142 Body Mass Index (BMI) 27.7 Weight Status Overweight GI Symptoms GI Symptoms None Last BM 1/22 x 2 Difficult in: None Skin Integrity/Comment: dryness Current %PO Fair (50-74%) Estimated Nutritional Goals BEE in Kcals: Using Current wt Calories/Kcals/Kg 23-27 Kcals Calculated 4894-1623 Protein: Using Current wt Protein g/k Protein Calculated 65 Fluid: ml 1495-1755ml (1ml/kcal) Nutritional Problem 1. Problem Problem inadequate food intake Etiology possible poor appetite, cognition Signs/Symptoms: PO intake 50-75%, not meeting 100% of nutritional needs Intervention/Recommendation Comments 1. Recommend CCHO 60gm diet. Assit pt with meals as needed. 2. Monitor PO intake, wt, labs and skin integrity 3. F/U as moderate risk in 3-5 days, 2/2-2/4 Expected Outcomes/Goals Expected Outcomes/Goals 1. PO intake to meet at least 75% of nutritional needs. 2. Wt stability, skin to remain intact, labs to approach WNL.
--- NOTE | 2017-09-18 00:06 | Progress Notes ---
DATE: 09/17/2017 SUBJECTIVE: The patient seen, chart reviewed, discussed with staff. The patient is still confused, disoriented, taking her medications, and is calmer. Staff noting she is doing better, less aggressive, less agitated, following unit rules and directions, more interactive and sociable. MEDICATIONS: Reviewed. ASSESSMENT: The patient remains impulsive, unpredictable, but overall calmer. PLAN: We will continue to monitor. We will coordinate care with social work regarding safe discharge plan and good psychiatric followup. JOB# [id number]
[2017-09-18] MEDS: Levothyroxine 0.1 Mg Tab PO SCH (06:36)
[2017-09-18] MEDS: Multivitamin Tab PO SCH (08:16)
--- NOTE | 2017-09-18 08:40 | General Progress Note ---
Subjective - Review of Systems Events since last encounter: impulsive , confused in no distress Objective - Results Result Diagrams: 09/04/17 16:27 09/04/17 16: Recent Labs: Laboratory Last Values WBC 4.0 Th/cmm (4.8-10.8) L D 09/04/17 16: RBC 3.66 Mil/cmm (3.80-5.20) L 09/04/17 16: Hgb 10.6 gm/dL (12-16) L 09/04/17 16: Hct 31.6 % (41.0-60) L 09/04/17 16: MCV 86.4 fl (81-100) 09/04/17 16: MCH 29.0 pg (27.0-31.0) 09/04/17: MCHC Differential 33.6 pg (28.0-36.0) 09/04/17 16: RDW 13.3 % (11.5-20.0) 09/04/17 16: Plt Count 261 Th/cmm (150-400) D 09/04/17 16: MPV 7.3 fl 09/04/17 16: Neutrophils % 72.6 % (40.0-80.0) 09/04/17 16: Lymphocytes % 15.5 % (20.0-50.0) L 09/04/17 16: Monocytes % 9.2 % (2.0-10.0) 09/04/17 16: Eosinophils % 1.6 % (0.0-5.0) 09/04/17 16: Basophils % 1.1 % (0.0-2.0) 09/04/17 16: Sodium 141 mEq/L (136-145) 09/04/17 16: Potassium 3.3 mEq/L (3.5-5.1) L 09/04/17 16: Chloride 106 mEq/L (98-107) 09/04/17 16: Carbon Dioxide 28.5 mEq/L (21.0-31.0) 09/04/17 16: Anion Gap 9.8 (7.0-16.0) 09/04/17 16: BUN 23 mg/dL (7-25) 09/04/17 16:27 Creatinine 0.6 mg/dL (0.6-1.2) 09/04/17 16:27 Est GFR ( Amer) TNP 09/04/17 16:27 Est GFR (Non-Af Amer) TNP 09/04/17 16:27 BUN/Creatinine Ratio 38.3 09/04/17 16:27 Glucose 113 mg/dL (70-105) H 09/04/17 16:27 POC Glucose 106 MG/DL (70 - 105) H 09/15/17 16:30 Whole Bld Lactic Acid 0.61 mmol/L (0.60-1.99) 09/04/17 16:27 Calcium 9.0 mg/dL (8.6-10.3) 09/04/17 16:27 Total Bilirubin 0.2 mg/dL (0.3-1.0) L 09/04/17 16:27 AST 18 U/L (13-39) 09/04/17 16:27 ALT 12 U/L (7-52) 09/04/17 16: Alkaline Phosphatase 58 U/L (34-104) 09/04/17 16:27 Total Protein 6.8 gm/dL (6.0-8.3) 09/04/17 16:27 Albumin 3.9 gm/dL (3.7-5.3) 09/04/17 16:27 Globulin 2.9 gm/dL 09/04/17 16:27 Albumin/Globulin Ratio 1.3 (1.0-1.8) 09/04/17 16:27 Triglycerides 59 mg/dL (<150) 09/04/17 16:27 Cholesterol 227 mg/dL (<200) H 09/04/17 16:27 LDL Cholesterol Direct 151 mg/dL (75-193) 09/04/17 16:27 HDL Cholesterol 66 mg/dL (23-92) 09/04/17 16:27 TSH 15.73 uIU/ml (0.34-5.60) H 09/04/17 16:27 RPR NONREACTIVE (NONREACTIVE) 09/04/17 16:27 - Physical Exam Vitals and I&O: Vital Signs Temp 97.6 F 09/18/17 06:48 Pulse 63 09/18/17 08:14 Resp 18 09/18/17 06:48 BP 133/68 09/18/17 08:14 Pulse Ox 98 09/18/17 06:48 Intake & Output 09/17/17 09/18/17 09/18/17 18:59 06:59 18:59 Intake Total 1200 120 Balance 1200 120 Intake: Oral 1200 120 Other: # Voids 3 # Bowel Movements 1 Active Medications: Current Medications Acetaminophen (Tylenol) 650 mg PO Q4HR PRN PRN Reason: Mild Pain / Temp above 100 Stop: 11/03/17 21:16 Al Hydrox/Mg Hydrox/Simethicone (Maalox) 30 ml PO Q4HR PRN PRN Reason: GI DISTRESS Stop: 11/03/17 21:16 Carbamazepine (Tegretol) 200 mg PO BID JORDY PRN Reason: Protocol Stop: 11/04/17 08:59 Last Admin: 09/18/17 08:10 Dose: 200 mg Escitalopram Oxalate (Lexapro) 20 mg PO DAILY JORDY PRN Reason: Protocol Stop: 11/04/17 08:59 Last Admin: 09/18/17 08:15 Dose: 20 mg Gabapentin (Neurontin) 100 mg PO TID JORDY Stop: 11/03/17 20:59 Last Admin: 09/18/17 08:16 Dose: Not Given Guaifenesin/Dextromethorphan (Robitussin Dm) 10 ml PO Q4HR PRN PRN Reason: Cough Stop: 11/03/17 20:55 Levothyroxine Sodium (Synthroid) 0.1 mg PO QDAC [facility] Stop: 11/04/17 07:29 Last Admin: 09/18/17 06:36 Dose: 0.1 mg Lorazepam (Ativan) 0.5 mg PO Q6HR PRN; Protocol PRN Reason: anxiety Stop: 11/03/17 21:04 Magnesium Hydroxide (Milk Of Magnesia) 30 ml PO HS PRN PRN Reason: Constipation Metformin HCl (Glucophage) 500 mg PO BIDWM [facility] Stop: 11/04/17 07:59 Last Admin: 09/18/17 07:39 Dose: 500 mg Multivitamins/Vitamin C (Theragran) 1 tab PO DAILY [facility] Stop: 11/04/17 08:59 Last Admin: 09/18/17 08:16 Dose: Not Given Risperidone (Risperdal) 0.5 mg PO BID JORDY PRN Reason: Protocol Stop: 11/04/17 08:59 Last Admin: 09/18/17 08:13 Dose: 0.5 mg Simvastatin (Zocor) 40 mg PO HS JORDY PRN Reason: Protocol Stop: 11/03/17 20:59 Last Admin: 09/17/17 21:33 Dose: 40 mg Trazodone HCl (Desyrel) 25 mg PO HS PRN; Protocol PRN Reason: Insomnia Stop: 11/04/17 20:59 Valsartan (Diovan) 80 mg PO DAILY JORDY Stop: 11/04/17 08:59 Last Admin: 09/18/17 08:14 Dose: 80 mg - Procedures Procedures: Procedures Procedure Code Date GROUP PSYCHOTHERAPY 87118 10/17/15 GROUP PSYCHOTHERAPY GZHZZZZ 10/17/15 Assessment/Plan - Problem List Patient Problems: All Active Problems Mood swings (Acute) F39 Nutritional Asmnt/Malnutr-PDOC - Dietary Evaluation Malnutrition Findings (Please click <Entered> for more info): Nutritional Asmnt/Malnutrition Start: 09/09/17 18: 16 Text: Status: Complete Freq: Document 09/09/17 18:16 [facility] (Rec: 09/09/17 18:23 LCHENG [email or web address]) Nutritional Asmnt/Malnutrition Patient General Information Nutritional Screening Moderate Risk Diagnosis psychosis NOS Pertinent Medical Hx/Surgical Hx HRN, DM, thyroid disorer, polyneuropathy, hypothyroidism , bipolar disorder, insomnia, major depression Subjective Information Pt seen sleeping in zaina-chair in dining room at time of visit. Spoke with nurse, pt sleeping d/t medication, consumed 60% of breakfast this morning. Per notes PO intake 50-75%. Current Diet Order/ Nutrition Support CCHO-45 Pertinent Medications synthroid, glucophage, theragran Pertinent Labs 09/04 Na 141, K 3.3, Cl 106, BUN 23, Cr 0.6, Glucose 113, Alb 3.9 09/05 POC 96 Nutritional Hx/Data Height 1.52 m Height (Calculated Centimeters) 152.4 Current Weight (lbs) 64.41 kg Weight (Calculated Kilograms) 64.4 Weight (Calculated Grams) 11983.1 [place] Body Weight 100 % [place] Body Weight 142 Body Mass Index (BMI) 27.7 Weight Status Overweight GI Symptoms GI Symptoms None Last BM 09/01 x 2 Difficult in: None Skin Integrity/Comment: dryness Current %PO Fair (50-74%) Estimated Nutritional Goals BEE in Kcals: Using Current wt Calories/Kcals/Kg 23-27 Kcals Calculated 5357-8062 Protein: Using Current wt Protein g/k Protein Calculated 65 Fluid: ml 1495-1755ml (1ml/kcal) Nutritional Problem 1. Problem Problem inadequate food intake Etiology possible poor appetite, cognition Signs/Symptoms: PO intake 50-75%, not meeting 100% of nutritional needs Intervention/Recommendation Comments 1. Recommend CCHO 60gm diet. Assit pt with meals as needed. 2. Monitor PO intake, wt, labs and skin integrity 3. F/U as moderate risk in 3-5 days, 2/2-2/4 Expected Outcomes/Goals Expected Outcomes/Goals 1. PO intake to meet at least 75% of nutritional needs. 2. Wt stability, skin to remain intact, labs to approach WNL.
[2017-09-19] MEDS: Levothyroxine 0.1 Mg Tab PO SCH (06:40)
[2017-09-19] MEDS: Multivitamin Tab PO SCH ×2 (08:17→11:17)
--- NOTE | 2017-09-19 10:51 | Progress Notes ---
DATE: 09/18/2017 SUBJECTIVE: The patient seen, chart reviewed, discussed with staff. The patient remains confused, disoriented in a zaina chair, was quite psychotic, yelling, screaming, nonsensical, going into other patients' rooms, stealing, highly intrusive. She seemed somewhat less agitated yesterday, but seems to have decompensated today. Medications were reviewed. 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 ASSESSMENT: The patient remains impulsive, unpredictable, intrusive, seems to have gotten very agitated this morning. PLAN: We will continue to monitor. Given her ongoing symptoms, she is not safe for discharge. She will likely benefit from dose adjustments to medications today. [facility]# [id number]
--- NOTE | 2017-09-19 18:55 | Discharge Summary ---
DATE OF DISCHARGE: 09/19/2017 JUSTIFICATION FOR HOSPITALIZATION: Depressed, aggressive behaviors. HISTORY OF PRESENT ILLNESS: A 72-year-old female aggressive, depressed, refusing to eat, refusing food, combative, upset, irritable. ALLERGIES: No known drug allergies. MEDICAL HISTORY: Noted. please see full H and P. MENTAL STATUS EXAMINATION: Please see full psych eval for details. MEDICATIONS: Noted. PROVISIONAL DIAGNOSES: Major depression, unspecified; anxiety, unspecified; noted history of bipolar. HOSPITAL COURSE: After initial assessment, the patient started on low dose Risperdal and trazodone. Over the course of the hospitalization, the patient improved, mood improved, affect improved. Also placed on Tegretol, gabapentin, and Lexapro. Over the course of the hospitalization, she robustly improved, mood, improved, affect improved, getting along well with staff and peers, more cooperative. No longer restless. No longer agitated. Not aggressive at all. Following unit rules and directions. Noting her mood was "better." CONDITION UPON DISCHARGE: Improved, better attention ADLs, good eye contact. Speech within normal limits. Mood "fine." Affect broad. Thought processes are more engaged. No SI, no HI, no intent, no plan. No overt psychotic symptoms. Insight and judgment better. The patient hopeful, motivated and optimistic. Placement was confirmed. DISCHARGE DIAGNOSES: Bipolar per history. Medical, please see full H and P. PROGNOSIS: The patient follows up with outpatient mental services and remains compliant with her treatment, prognosis will improve, otherwise guarded. [facility]# [id number]
== END 2017-09-19 15:20 | disposition home or self-care (01) | DRG 881 ==
LOC: ER 15:34 → GERO 17:25
PROVIDERS: ADMIT Psychiatry & Neurology Psychiatry; ATTEND Psychiatry & Neurology Psychiatry
DX: F32.9 Major depressive disorder, single episode, unspecified (principal); E11.42 Type 2 diabetes mellitus with diabetic polyneuropathy; D64.9 Anemia, unspecified; E03.9 Hypothyroidism, unspecified; I10 Essential (primary) hypertension; E78.5 Hyperlipidemia, unspecified; E78.00 Pure hypercholesterolemia, unspecified; D72.819 Decreased white blood cell count, unspecified; E87.6 Hypokalemia; G47.00 Insomnia, unspecified; F41.9 Anxiety disorder, unspecified; Z79.84 Long term (current) use of oral hypoglycemic drugs
CPT/HCPCS: 36415-UA; 70450-TC; 80053-TC; 80061-TC; 82948-90; 83605; 84443-TC; 85025-TC; 86592-TC; 90899; 93005; A4216; G0410; J1200; J1630; J2060; Z7610

== ENCOUNTER 2018-02-09 22:39 | Inpatient (IN) | payer MEDICARE, MEDICAID ==
[2018-02-09 23:22] LABS: % BASOPHILS 1.2 % (0.0-2.0); % EOSINOPHILS 4.8 % (0.0-5.0); % LYMPHOCYTES 22.8 % (20.0-50.0); % MONOCYTES 11.1 % (2.0-10.0); % NEUTROPHILS 60.1 % (40.0-80.0); EOSINOPHILE ABSOLUTE 0.2 Th/cmm (0.1-0.4); HEMATOCRIT 30.8 % (41.0-60); HEMOGLOBIN 10.3 gm/dL (12-16); LYMPHOCYTE ABSOLUTE 0.8 Th/cmm (1.5-3.0); MEAN CELL VOLUME 87.1 fl (81-100); MEAN CORPUSCULAR HEMOGLOBIN 29.1 pg (27.0-31.0); MEAN CORPUSCULAR HGB CONC 33.5 pg (28.0-36.0); MONOCYTE ABSOLUTE 0.4 Th/cmm (0.3-1.0); NEUTROPHILE ABSOLUTE 2.3 Th/cmm (1.8-8.0); PLATELET COUNT 265 Th/cmm (150-400); RED BLOOD COUNT 3.54 Mil/cmm (3.80-5.20); RED CELL DISTRIBUTION WIDTH 13.8 % (11.5-20.0)
[2018-02-09 23:24] LABS: WHITE BLOOD COUNT 3.7 Th/cmm (4.8-10.8)
[2018-02-09] MEDS ORDERED: Potassium Chloride Elixir 20 mEq /15 mL UDC PO ONE (23:34)
[2018-02-09 23:36] LABS: ALB/GLOB RATIO 1.6 (1.0-1.8); ALBUMIN 4.2 gm/dL (3.7-5.3); ALKALINE PHOSPHATASE 51 U/L (34-104); ANION GAP 8.8 (7.0-16.0); BILIRUBIN,TOTAL 0.4 mg/dL (0.3-1.0); BUN - UREA NITROGEN 24 mg/dL (7-25); CALCIUM SERUM 9.7 mg/dL (8.6-10.3); CARBON DIOXIDE 30.7 mEq/L (21.0-31.0); CHLORIDE 102 mEq/L (98-107); CREATININE - SERUM 0.5 mg/dL (0.6-1.2); GLUCOSE 118 mg/dL (70-105); POTASSIUM SERUM 3.5 mEq/L (3.5-5.1); SGOT 16 U/L (13-39); SGPT/ALT 10 U/L (7-52); SODIUM SERUM 138 mEq/L (136-145); TOTAL PROTEIN,SERUM 6.9 gm/dL (6.0-8.3)
--- NOTE | 2018-02-09 23:41 | ED Physician Chart ---
ED Chief Complaint/HPI - Patient Information Date Seen:: 02/09/18 Time Seen:: 23:07 Chief Complaint:: PSYCHOSIS History of Present Illness:: THIS IS A 72 YO FEMALE WHO WAS SENT FROM THE [facility] FOR AN EVALUATION AND TREATMENT OF HER PSYCHOTIC ACTIVITIES. SHE IS ALSO CONCERNED ABOUT HER SWOLLEN RIGHT LOWER LEG. Allergies:: Allergies Allergy/AdvReac Type Severity Reaction Status Date / Time riboflavin (vitamin B2) Allergy Verified 02/09/18 23:27 Vitals:: Vital Signs - 8 hr 02/09/18 23:05 Temp 97.9 F HR 58 RR 18 BP 144/69 O2 Sat % 99 Historian:: EMS, Medical Records Review:: Nurse's Note Reviewed, Transfer documents Reviewed ED Review of Systems - Review of Systems General/Constitutional: No fever, No chills, No weight loss, No weakness, No diaphoresis, No edema, No loss of appetite, Other (THIS PATIENT IS UNABLE TO GIVE A REVIEW OF SYSTEMS.) Skin: No skin lesions, No rash, No bruising Head: No headache, No light-headedness Eyes: No loss of vision, No pain, No diplopia ENT: No earache, No nasal drainage, No sore throat, No tinnitus Neck: No neck pain, No swelling, No thyromegaly, No stiffness, No mass noted Cardio Vascular: No chest pain, No palpitations, No PND, No orthopnea, No edema Pulmonary: No SOB, No cough, No sputum, No wheezing GI: No nausea, No vomiting, No diarrhea, No pain, No melena, No hematochezia, No constipation, No hematemesis G/U: No dysuria, No frequency, No hematuria Musculoskeletal: No bone or joint pain, No back pain, No muscle pain Endocrine: No polyuria, No polydipsia Psychiatric: No prior psych history, No depression, No anxiety, No suicidal ideation Hematopoietic: No bruising, No lymphadenopathy Allergic/Immuno: No urticaria, No angioedema Neurological: No syncope, No focal symptoms, No weakness, No paresthesia, No headache, No seizure, No dizziness, No confusion, No vertigo ED Past Medical History - Past Medical History Obtainable: Yes Past Medical History: HTN, Thyroid disorder, Dementia Family History: None Social History: Non Smoker, No Alcohol, No Drug Use, Care Facility Surgical History: other (RIGHT LOWER LEG SURGERIES) Psychiatricy History: Schizophrenia, Dementia Medication: Reviewed Family Medical History - Family Member Mother History Unknown: Yes Ethnicity: Living Status: Father History Unknown: Yes ED Physical Exam - Physical Examination General/Constitutional: Awake, Well-developed, well-nourished, Alert, No distress, GCS 15, Non-toxic appearing, Ambulatory Head: Atraumatic Eyes: Lids, conjuctiva normal, PERRL, EOMI Skin: Nl inspection, No rash, No skin lesions, No ecchymosis, Well hydrated, No lymphadenopathy ENMT: External ears, nose nl, Nasal exam nl, Lips, teeth, gums nl Neck: Nontender, Full ROM w/o pain, No JVD, No nuchal rigidity, No bruit, No mass, No stridor Respiratory: Nl effort/Exclusion, Clear to Auscultation, No Wheeze/Rhonchi/Rales Cardio Vascular: RRR, No murmur, gallop, rubs, NL S1 S2 GI: No tenderness/rebounding/guarding, No organomegaly, No hernia, Normal BS's, Nondistended, No mass/bruits, No McBurney tenderness : No CVA tenderness Extremities: No tenderness or effusion, Full ROM, normal strength in all extremities, No edema, Normal digits & nails Other Extremities comments:: RIGHT LOWER LEG MILD EDEMA NOTED AND NO OPEN WOUND AND THE AREA IS TENDER AND SLIGHTLY RED. Neuro/Psych: Alert/oriented, DTR's symmetric, Normal sensory exam, Normal motor strength, Judgement/insight normal, Mood normal, Normal gait, No focal deficits Misc: Normal back, No paraspinal tenderness ED Labs/Radiology/EKG Results - Lab Results Results: Laboratory Tests 02/09/18 23:05 WBC 3.7 L RBC 3.54 L Hgb 10.3 L Hct 30.8 L MCV 87.1 MCH 29.1 MCHC Differential 33.5 RDW 13.8 Plt Count 265 MPV 7.0 Neutrophils % 60.1 Lymphocytes % 22.8 Monocytes % 11.1 H Eosinophils % 4.8 Basophils % 1.2 ED Assessment - Assessment General Assessment: PSYCHOSIS CELLULITIS OR THE RIGHT LOWER LEG ED Septic Shock - . Is Septic Shock (SBP<90, OR Lactate>4 mmol\L) present?: No - <6hrs of presentation: Vital Signs: Vital Signs - 8 hr 07/02/18 23:05 Temp 97.9 F HR 58 RR 18 BP 144/69 O2 Sat % 99 ED Reassessment (Disposition) - Reassessment Reassessment Condition:: Unchanged - Diagnosis Diagnosis:: RIGHT LOWER LEG CELLULITIS PSYCHOSIS - Patient Disposition Discharge/Transfer:: Acute Care w/in this hosp Admitted to:: Med/Surg Admitting Medical Physician:: Elliott Luna Condition at Disposition:: Unchanged ED Discharge Plan - Patient Disposition Admit/Discharge/Transfer: Acute Care w/in this hosp Condition at Disposition: Unchanged
[2018-02-09 23:43] LABS: INR 0.97 (0.5-1.4); PROTHROMBIN TIME (TEST) 10.1 SECONDS (9.5-11.5)
[2018-02-10] MEDS ORDERED: Potassium Chloride Elixir 20 mEq /15 mL UDC ONE (00:07)
[2018-02-10 02:06] LABS: URINE MICROSCOPIC INDICATED? YES; URINE SOURCE CLEAN C
[2018-02-10 02:11] LABS: URINE BILIRUBIN NEGATIVE (NEGATIVE); URINE BLOOD NEGATIVE (NEGATIVE); URINE GLUCOSE (UA) NEGATIVE (NEGATIVE); URINE KETONE NEGATIVE (NEGATIVE); URINE LEUKOCYTE ESTERASE SMALL (NEGATIVE); URINE NITRATE NEGATIVE (NEGATIVE); URINE PROTEIN NEGATIVE (NEGATIVE); URINE UROBILINOGEN 0.2 E.U./dL (0.2 - 1.0)
[2018-02-10 02:15] LABS: URINE CLARITY CLEAR (CLEAR); URINE COLOR YELLOW
[2018-02-10 02:16] LABS: URINE BACTERIA FEW /hpf (NONE SEEN); URINE EPITHELIAL CELLS FEW /lpf (FEW); URINE RBC 0-2 /hpf (0-5)
[2018-02-10 04:08] VITALS: BP 178/68
[2018-02-10 06:24] LABS: % BASOPHILS 1.6 % (0.0-2.0); % EOSINOPHILS 4.6 % (0.0-5.0); % LYMPHOCYTES 19.9 % (20.0-50.0); % MONOCYTES 11.5 % (2.0-10.0); % NEUTROPHILS 62.4 % (40.0-80.0); BASOPHILE ABSOLUTE 0.1 Th/cumm (0-0.2); EOSINOPHILE ABSOLUTE 0.2 Th/cmm (0.1-0.4); HEMATOCRIT 29.9 % (41.0-60); HEMOGLOBIN 10.1 gm/dL (12-16); LYMPHOCYTE ABSOLUTE 0.7 Th/cmm (1.5-3.0); MEAN CELL VOLUME 86.6 fl (81-100); MEAN CORPUSCULAR HEMOGLOBIN 29.4 pg (27.0-31.0); MEAN CORPUSCULAR HGB CONC 33.9 pg (28.0-36.0); MEAN PLATELET VOLUME 7.3 fl; MONOCYTE ABSOLUTE 0.4 Th/cmm (0.3-1.0); NEUTROPHILE ABSOLUTE 2.3 Th/cmm (1.8-8.0); PLATELET COUNT 244 Th/cmm (150-400); RED BLOOD COUNT 3.45 Mil/cmm (3.80-5.20); RED CELL DISTRIBUTION WIDTH 13.7 % (11.5-20.0)
[2018-02-10 06:35] LABS: WHITE BLOOD COUNT 3.7 Th/cmm (4.8-10.8)
[2018-02-10 06:40] LABS: ALB/GLOB RATIO 1.4 (1.0-1.8); ALBUMIN 3.7 gm/dL (3.7-5.3); ALKALINE PHOSPHATASE 47 U/L (34-104); BILIRUBIN,TOTAL 0.4 mg/dL (0.3-1.0); BUN - UREA NITROGEN 18 mg/dL (7-25); CALCIUM SERUM 9.3 mg/dL (8.6-10.3); CARBON DIOXIDE 28.5 mEq/L (21.0-31.0); CHLORIDE 104 mEq/L (98-107); CHOLESTEROL 217 mg/dL (<200); CREATININE - SERUM 0.5 mg/dL (0.6-1.2); GLUCOSE 84 mg/dL (70-105); HDL -HIGH DENSITY LIPOPROTEIN 70 mg/dL (23-92); POTASSIUM SERUM 3.5 mEq/L (3.5-5.1); SGOT 16 U/L (13-39); SGPT/ALT 10 U/L (7-52); SODIUM SERUM 137 mEq/L (136-145); TOTAL PROTEIN,SERUM 6.3 gm/dL (6.0-8.3); TRIGLYCERIDES 42 mg/dL (<150)
[2018-02-10] MEDS ORDERED: Maalox 30 mL Cup PO PRN (08:34)
[2018-02-10] MEDS ORDERED: Magnesium Hydroxide (MOM) 30 mL UDC PO PRN (08:34)
[2018-02-10] MEDS: Multivitamin w/ Minerals Tab PO SCH (11:32)
--- NOTE | 2018-02-10 20:44 | History and Physical ---
History of Present Illness - HPI Chief Complaint: right lower leg swelling HPI: 72 year old female from [facility] for history of right lower leg swelling with pain. Vital Signs: Last Vital Signs Temp 98.5 F 02/10/18 15:28 Pulse 69 02/10/18 15:28 Resp 18 02/10/18 15:28 BP 118/51 02/10/18 15:28 Pulse Ox 98 02/10/18 15:28 Past Medical History Other History: .HTN, hypothyroid disorder, Dementia Family Medical History - Family Member Mother History Unknown: Yes Ethnicity: Living Status: Father History Unknown: Yes Social History Smoke: No Alcohol: None Drugs: None Lives: [facility] - Medications Home Medications: Home Medication Medication Instructions Recorded Type Docusate Sodium 100 mg PO DAILY 09/04/17 History Acetaminophen [Tylenol] 650 mg PO Q4HR PRN tab 09/19/17 Rx Gabapentin [Neurontin*] 100 mg PO TID cap 09/19/17 Rx Levothyroxine [Synthroid] 0.1 mg PO QDAC tab 09/19/17 Rx Al Hyd/Mg Hyd/Simethicone [Maalox] 30 ml PO Q4HR PRN 02/10/18 History Magnesium Hydroxide [Milk of 30 ml PO DAILY PRN 02/10/18 History Magnesia] Metformin HCl [Glumetza] 500 mg PO BID 02/10/18 History Multivitamin with Minerals 1 each PO DAILY 02/10/18 History [Myvitalife] risperiDONE [Risperdal] 1 mg PO BID 02/10/18 History - Allergies Allergies/Adverse Reactions: Allergies Allergy/AdvReac Type Severity Reaction Status Date / Time riboflavin (vitamin B2) Allergy Verified 02/09/18 23:27 Review of Systems - Review of Systems Constitutional: Report: Weakness Eyes: Report: No Significant ENT: Report: No Significant Respiratory: Report: No Significant Cardiovascular: Report: No Significant Skin: Report: Other (rt lower leg swelling) Neurological: Report: Weakness, Confusion Physical Exam - Physical Exam HEENT: Report: Ears Nose Throat within normal limits Neck: Report: Within normal limits Cardiovascular Systems: Report: +s1/s2 noted, Regular, Rate and Rhythm Respiratory: Report: Breath Sounds are within normal limits Abdomen: Report: Non-tender to palpation Skin: Report: Other (rt lower leg swelling) Neuro/Psych: Report: Weakness or sensory loss noted. - Lab Results All Lab Results last 24 hours: Laboratory Results - last 24 hr 02/09/18 02/09/18 02/09/18 23:05 23:05 23:05 WBC 3.7 L RBC 3.54 L Hgb 10.3 L Hct 30.8 L MCV 87.1 MCH 29.1 MCHC Differential 33.5 RDW 13.8 Plt Count 265 MPV 7.0 Neutrophils % 60.1 Lymphocytes % 22.8 Monocytes % 11.1 H Eosinophils % 4.8 Basophils % 1.2 PT 10.1 INR 0.97 Sodium 138 Potassium 3.5 Chloride 102 Carbon Dioxide 30.7 Anion Gap 8.8 BUN 24 Creatinine 0.5 L Est GFR ( Amer) TNP Est GFR (Non-Af Amer) TNP BUN/Creatinine Ratio 48.0 Glucose 118 H Whole Bld Lactic Acid Calcium 9.7 Total Bilirubin 0.4 AST 16 ALT 10 Alkaline Phosphatase 51 Troponin I Total Protein 6.9 Albumin 4.2 Globulin 2.7 Albumin/Globulin Ratio 1.6 Triglycerides Cholesterol LDL Cholesterol Direct HDL Cholesterol Urine Source Urine Color Urine Clarity Urine pH Ur Specific [place] Urine Protein Urine Glucose (UA) Urine Ketones Urine Blood Urine Nitrate Urine Bilirubin Urine Urobilinogen Ur Leukocyte Esterase Urine RBC Urine WBC Ur Epithelial Cells Urine Bacteria 02/09/18 02/09/18 02/10/18 23:05 23:05 00:58 WBC RBC Hgb Hct MCV MCH MCHC Differential RDW Plt Count MPV Neutrophils % Lymphocytes % Monocytes % Eosinophils % Basophils % PT INR Sodium Potassium Chloride Carbon Dioxide Anion Gap BUN Creatinine Est GFR ( Amer) Est GFR (Non-Af Amer) BUN/Creatinine Ratio Glucose Whole Bld Lactic Acid 0.71 Calcium Total Bilirubin AST ALT Alkaline Phosphatase Troponin I < 0.01 L Total Protein Albumin Globulin Albumin/Globulin Ratio Triglycerides Cholesterol LDL Cholesterol Direct HDL Cholesterol Urine Source CLEAN C Urine Color YELLOW Urine Clarity CLEAR Urine pH 6.0 Ur Specific [place] 1.015 Urine Protein NEGATIVE Urine Glucose (UA) NEGATIVE Urine Ketones NEGATIVE Urine Blood NEGATIVE Urine Nitrate NEGATIVE Urine Bilirubin NEGATIVE Urine Urobilinogen 0.2 Ur Leukocyte Esterase SMALL H Urine RBC 0-2 Urine WBC 2-5 Ur Epithelial Cells FEW Urine Bacteria FEW 02/10/18 02/10/18 05:56 05:56 WBC 3.7 L RBC 3.45 L Hgb 10.1 L Hct 29.9 L MCV 86.6 MCH 29.4 MCHC Differential 33.9 RDW 13.7 Plt Count 244 MPV 7.3 Neutrophils % 62.4 Lymphocytes % 19.9 L Monocytes % 11.5 H Eosinophils % 4.6 Basophils % 1.6 PT INR Sodium 137 Potassium 3.5 Chloride 104 Carbon Dioxide 28.5 Anion Gap 8.0 BUN 18 Creatinine 0.5 L Est GFR ( Amer) TNP Est GFR (Non-Af Amer) TNP BUN/Creatinine Ratio 36.0 Glucose 84 Whole Bld Lactic Acid Calcium 9.3 Total Bilirubin 0.4 AST 16 ALT 10 Alkaline Phosphatase 47 Troponin I Total Protein 6.3 Albumin 3.7 Globulin 2.6 Albumin/Globulin Ratio 1.4 Triglycerides 42 Cholesterol 217 H LDL Cholesterol Direct 128 HDL Cholesterol 70 Urine Source Urine Color Urine Clarity Urine pH Ur Specific [place] Urine Protein Urine Glucose (UA) Urine Ketones Urine Blood Urine Nitrate Urine Bilirubin Urine Urobilinogen Ur Leukocyte Esterase Urine RBC Urine WBC Ur Epithelial Cells Urine Bacteria - Assessment Assessment: rt lower leg cellulitis HTN hypothyroid disorder Dementia - Plan Plan: id consult iv antibiotic continue the rest of the orders
--- NOTE | 2018-02-11 03:18 | Consultation ---
DATE OF CONSULTATION: 02/10/2018 INFECTIOUS DISEASE CONSULTATION REFERRING PHYSICIAN: Jacob Luna MD REASON FOR CONSULTATION: Left leg cellulitis. HISTORY OF PRESENT ILLNESS: A 72-year-old female with a past medical history of lymphedema of the left leg, brought in to the facility for some redness and pain in the left leg. On initial evaluation, the patient was afebrile and her WBC count was 3700. ID consult was called for antibiotic management. PAST MEDICAL HISTORY: Includes left leg swelling, suspect lymphedema, hypertension, thyroid disorder, and dementia. ALLERGIES: NKDA. MEDICATIONS: As per medication reconciliation sheet. FAMILY HISTORY: Not available. REVIEW OF SYSTEMS: GENERAL: The patient has no fever, no chills. HEENT: No diplopia, no photophobia, no sore throat. RESPIRATORY: No cough, no shortness of breath. CARDIOVASCULAR: No chest pain or palpitation. GASTROINTESTINAL: No nausea, no vomiting, no diarrhea, no constipation. GENITOURINARY: No dysuria. NEUROLOGIC: No headache, no dizziness, no focal weakness. MUSCULOSKELETAL: The patient has swelling of the left leg. There is mild erythema on the posterolateral aspect of left lower leg. NEUROLOGIC: No headache, no dizziness, no focal weakness. PHYSICAL EXAMINATION: VITAL SIGNS: Shows temperature is 98.5, pulse 69, respirations 18, blood pressure 118/51. GENERAL: The patient is comfortable lying in the bed, not in acute distress. HEENT: Head is normocephalic, atraumatic. Oral cavity moist, pink tongue. NECK: Supple, no JVD, no bruit. Trachea midline. CHEST: Bilateral breath sounds. No crackles or wheezing. HEART: S1, S2 within normal limits. Regular rhythm. No murmur, no gallop. ABDOMEN: Soft, nontender, nondistended. Bowel sounds present. EXTREMITIES: No cyanosis, no clubbing, no edema. The patient has swollen left leg with erythema at the posterolateral aspect. NEUROLOGIC: Alert, awake, oriented x 3. No focal deficit. LABORATORY DATA: Current lab shows WBC count is 3700. Hemoglobin 10.1, platelets are 244,000. Creatinine 0.5. IMPRESSION: 1. Left leg cellulitis. 2. Hypertension. RECOMMENDATION: Continue vancomycin. I will start the vancomycin IV for 7 days. We will check the venous ultrasound to rule out DVT. Thank you Dr. Luna, for involving me in taking care of this patient. JOB# [id number]
[2018-02-11] MEDS ORDERED: Levothyroxine 0.1 Mg Tab PO SCH (07:30)
[2018-02-11] MEDS ORDERED: Vancomycin HCl 500 MG in Sodium Chloride 0.9% 100 ML IV SCH (09:00)
[2018-02-11] MEDS: Multivitamin w/ Minerals Tab PO SCH (09:25)
--- NOTE | 2018-02-11 09:34 | General Progress Note ---
Subjective - Review of Systems Events since last encounter: rt lower leg swelling patient c/o pain no fever Objective - Results Result Diagrams: 02/10/18 05:56 02/10/18 05:56 Recent Labs: Laboratory Last Values WBC 3.7 Th/cmm (4.8-10.8) L 02/10/18 05:56 RBC 3.45 Mil/cmm (3.80-5.20) L 02/10/18 05:56 Hgb 10.1 gm/dL (12-16) L 02/10/18 05:56 Hct 29.9 % (41.0-60) L 02/10/18 05:56 MCV 86.6 fl (81-100) 02/10/18 05:56 MCH 29.4 pg (27.0-31.0) 02/10/18 05:56 MCHC Differential 33.9 pg (28.0-36.0) 02/10/18 05:56 RDW 13.7 % (11.5-20.0) 02/10/18 05:56 Plt Count 244 Th/cmm (150-400) 02/10/18 05:56 MPV 7.3 fl 02/10/18 05:56 Neutrophils % 62.4 % (40.0-80.0) 02/10/18 05:56 Lymphocytes % 19.9 % (20.0-50.0) L 02/10/18 05:56 Monocytes % 11.5 % (2.0-10.0) H 02/10/18 05:56 Eosinophils % 4.6 % (0.0-5.0) 02/10/18 05:56 Basophils % 1.6 % (0.0-2.0) 02/10/18 05:56 PT 10.1 SECONDS (9.5-11.5) 02/09/18 23:05 INR 0.97 (0.5-1.4) 02/09/18 23:05 Sodium 137 mEq/L (136-145) 02/10/18 05:56 Potassium 3.5 mEq/L (3.5-5.1) 02/10/18 05:56 Chloride 104 mEq/L (98-107) 02/10/18 05:56 Carbon Dioxide 28.5 mEq/L (21.0-31.0) 02/10/18 05:56 Anion Gap 8.0 (7.0-16.0) 02/10/18 05:56 BUN 18 mg/dL (7-25) 02/10/18 05:56 Creatinine 0.5 mg/dL (0.6-1.2) L 02/10/18 05:56 Est GFR ( Amer) TNP 02/10/18 05:56 Est GFR (Non-Af Amer) TNP 02/10/18 05:56 BUN/Creatinine Ratio 36.0 02/10/18 05:56 Glucose 84 mg/dL (70-105) 02/10/18 05:56 Whole Bld Lactic Acid 0.71 mmol/L (0.60-1.99) 02/09/18 23:05 Calcium 9.3 mg/dL (8.6-10.3) 02/10/18 05:56 Total Bilirubin 0.4 mg/dL (0.3-1.0) 02/10/18 05:56 AST 16 U/L (13-39) 02/10/18 05:56 ALT 10 U/L (7-52) 02/10/18 05:56 Alkaline Phosphatase 47 U/L (34-104) 02/10/18 05:56 Troponin I < 0.01 ng/mL (0.01-0.05) L 02/09/18 23:05 Total Protein 6.3 gm/dL (6.0-8.3) 02/10/18 05:56 Albumin 3.7 gm/dL (3.7-5.3) 02/10/18 05:56 Globulin 2.6 gm/dL 02/10/18 05:56 Albumin/Globulin Ratio 1.4 (1.0-1.8) 02/10/18 05:56 Triglycerides 42 mg/dL (<150) 02/10/18 05:56 Cholesterol 217 mg/dL (<200) H 02/10/18 05:56 LDL Cholesterol Direct 128 mg/dL (75-193) 02/10/18 05:56 HDL Cholesterol 70 mg/dL (23-92) 02/10/18 05:56 Urine Source CLEAN C 02/10/18 00:58 Urine Color YELLOW 02/10/18 00:58 Urine Clarity CLEAR (CLEAR) 02/10/18 00:58 Urine pH 6.0 (4.6 - 8.0) 02/10/18 00:58 Ur Specific [place] 1.015 (1.005-1.030) 02/10/18 00:58 Urine Protein NEGATIVE mg/dL (NEGATIVE) 02/10/18 00:58 Urine Glucose (UA) NEGATIVE mg/dL (NEGATIVE) 02/10/18 00:58 Urine Ketones NEGATIVE mg/dL (NEGATIVE) 02/10/18 00:58 Urine Blood NEGATIVE (NEGATIVE) 02/10/18 00:58 Urine Nitrate NEGATIVE (NEGATIVE) 02/10/18 00:58 Urine Bilirubin NEGATIVE (NEGATIVE) 02/10/18 00:58 Urine Urobilinogen 0.2 E.U./dL (0.2 - 1.0) 02/10/18 00:58 Ur Leukocyte Esterase SMALL (NEGATIVE) H 02/10/18 00:58 Urine RBC 0-2 /hpf (0-5) 02/10/18 00:58 Urine WBC 2-5 /hpf (0-5) 02/10/18 00:58 Ur Epithelial Cells FEW /lpf (FEW) 02/10/18 00:58 Urine Bacteria FEW /hpf (NONE SEEN) 02/10/18 00:58 - Physical Exam Vitals and I&O: Vital Signs Temp 98.1 F 02/11/18 04:00 Pulse 67 02/11/18 04:00 Resp 18 02/11/18 04:00 BP 134/64 02/11/18 04:00 Pulse Ox 98 02/11/18 04:00 Intake & Output 02/10/18 02/11/18 02/11/18 18:59 06:59 18:59 Intake Total 500 300 Balance 500 300 Weight (lbs) 46.72 kg 46.918 kg Intake: Oral 500 300 Other: # Voids 3 3 Weight Source Bedscale Bedscale Active Medications: Current Medications Acetaminophen (Tylenol) 650 mg PO Q4HR PRN PRN Reason: Mild Pain / Temp above 100 Stop: 04/11/18 08:33 Al Hydrox/Mg Hydrox/Simethicone (Maalox) 30 ml PO Q4HR PRN PRN Reason: GI DISTRESS Stop: 04/11/18 08:33 Docusate Sodium (Colace) 100 mg PO DAILY JORDY Stop: 04/11/18 08:59 Last Admin: 02/11/18 09:25 Dose: Not Given Gabapentin (Neurontin) 100 mg PO TID JORDY Stop: 04/11/18 08:59 Last Admin: 02/11/18 09:25 Dose: Not Given Vancomycin HCl 500 mg/ Sodium (Chloride) 100 mls @ 100 mls/hr IV Q24HR@0900 JORDY Stop: 04/12/18 08:59 Last Admin: 02/11/18 09:25 Dose: Not Given Levothyroxine Sodium (Synthroid) 0.1 mg PO QDAC JORDY Stop: 04/12/18 07:29 Last Admin: 02/11/18 07:36 Dose: Not Given Lorazepam (Ativan) 1 mg IVP Q6H PRN; Protocol PRN Reason: Agitation Stop: 04/11/18 03:59 Last Admin: 02/11/18 00:43 Dose: 1 mg Magnesium Hydroxide (Milk Of Magnesia) 30 ml PO DAILY PRN PRN Reason: Constipation Stop: 04/11/18 08:33 Metformin HCl (Glucophage) 500 mg PO BID COUNTS INCLUDE 234 BEDS AT THE [facility] Stop: 04/11/18 08:59 Last Admin: 02/11/18 09:25 Dose: Not Given Miscellaneous (Vancomycin Iv Per Pharmacy) 1 ea MC PRN COUNTS INCLUDE 234 BEDS AT THE [facility] Stop: 04/12/18 02:59 Risperidone (Risperdal) 1 mg PO BID COUNTS INCLUDE 234 BEDS AT THE [facility]; Protocol Stop: 04/11/18 08:59 - Procedures Procedures: Procedures Procedure Code Date GROUP PSYCHOTHERAPY 24630 10/17/15 GROUP PSYCHOTHERAPY [id number] 10/17/15 Assessment/Plan - Assessment Assessment: rt lower leg cellulitis HTN hypothyroid disorder Dementia - Plan Plan: id consult iv antibiotic continue the rest of the orders
--- NOTE | 2018-02-11 11:17 | Consultation ---
DATE OF CONSULTATION: 02/11/2018 PSYCHIATRIC CONSULT PATIENT'S AGE: 72-year-old. SEX: Female. PHYSICIAN: Dr. Luna. LEAD DIE MOLDER: Dr. Bowles. REASON FOR THE CONSULT: Evaluating psychotropic medications and refusal to take meds. HISTORY OF PRESENT ILLNESS: The patient is a 72-year-old female who was admitted to the hospital because of right lower leg swelling. Chart reviewed and the patient interviewed and discussed the patient's condition with the staff and reviewed records and labs. The patient has been uncooperative and she has been refusing IV and refusing to take her Risperdal and/or her medications except that she is taking gabapentin 1 time only and is of 3 times. The patient said that "I wanted to go to [facility] where they operated on my leg 2 years ago." The patient said that she does not like where she lives currently and she wants to move from there and she feels that over there, they are mistreating her. She said that the patient intentionally go with the wheelchair and hit her leg with a wheelchair. The patient has been feeling hopeless and helpless there. At the same time, the patient is alert and she is oriented. PAST PSYCHIATRIC HISTORY: The patient said that she was seen several years ago after she has a friend who she lost and she was depressed at that time. PAST MEDICAL HISTORY: Right lower leg edema. SOCIAL HISTORY: The patient is single, never and has no children. [facility]. Denies alcohol or drug use or smoking cigarettes. MENTAL STATUS EXAM: The patient appears her stated age. Calm and cooperative. Fair eye contact. Normal tone and rate of speech. Thought processes mainly goal directed. The patient denies any auditory or visual hallucinations or delusions. She denies any thoughts of suicide or homicide. The patient is alert and oriented to time, place, person, and situation. Intact immediate, recent and remote memories. Fair insight but judgment is questionable. She seems to be of average intelligence based on her verbal ability. ASSESSMENT: PRIMARY DIAGNOSIS: Bipolar disorder by history. TREATMENT PLAN: The patient currently is alert and oriented to time, place, person and situation. She can make her own decisions and she is refusing to take Risperdal. We will continue to try to convince the patient to take her psych medications, but at the same time at this moment the patient is not psychotic, but she seems to be slightly depressed for the situation she is on. We will reevaluate the patient and will continue to work on her compliance with medications. Thanks to Dr. Luna and we will follow with you. JOB# [id number]
--- NOTE | 2018-02-11 18:21 | History & Physical ---
ADMIT DATE: 02/10/2018 HISTORY OF PRESENT ILLNESS: The patient resident of [facility]. This patient apparently was having problem with her left lower leg and swelling, it looks like increasing cellulitis. Also known to have history of diabetes and history of polyneuropathy. The patient was sent to the [facility] for evaluation and the patient was seen. The patient also known to have history of hypertension, hypothyroidism, hyperlipidemia, and bipolar disorder. He was evaluated and found to have cellulitis of left lower leg. He was admitted. He was started on vancomycin. Apparently, the patient was refusing all treatment. PHYSICAL EXAMINATION: HEAD: Normal. ENT: Normal. NECK: Supple, nontender. LUNGS: Clear. CARDIOVASCULAR SYSTEM: S1, S2 heard. ABDOMEN: Soft. Bowel sounds are heard. CENTRAL NERVOUS SYSTEM: The patient is very agitated, not wanting anything. EXTREMITIES: The patient's left lower leg as shown in the picture has cellulitis. The patient was given IV antibiotics and the patient was admitted for cellulitis, bipolar disorder, hypothyroidism, and hypertension. I will follow the patient. I will call Dr. Bowles to see the patient. JOB# [id number]
== END 2018-02-11 11:38 | DRG 603 ==
LOC: ER 22:39 → MSI 02-10 02:35
PROVIDERS: ADMIT Internal Medicine; ATTEND Internal Medicine
DX: L03.115 Cellulitis of right lower limb (principal); L03.116 Cellulitis of left lower limb; I10 Essential (primary) hypertension; F03.90 Unspecified dementia, unspecified severity, without behavioral disturbance, psychotic disturbance, mood disturbance, and anxiety; F20.9 Schizophrenia, unspecified; F29 Unspecified psychosis not due to a substance or known physiological condition; E03.9 Hypothyroidism, unspecified; E11.42 Type 2 diabetes mellitus with diabetic polyneuropathy; E78.5 Hyperlipidemia, unspecified; F31.9 Bipolar disorder, unspecified; Z88.8 Allergy status to other drugs, medicaments and biological substances
CPT/HCPCS: 36415-UA; 80053-TC; 80061-TC; 81001-TC; 83605; 84484-TC; 85025-TC; 85610-TC; 96374; J0696; J2060; J3370

== ENCOUNTER 2018-02-11 11:44 | Inpatient (IN) | payer MEDICARE, MEDICAID ==
[2018-02-11] MEDS ORDERED: Maalox 30 mL Cup PO PRN (12:31)
[2018-02-11] MEDS ORDERED: Magnesium Hydroxide (MOM) 30 mL UDC PO PRN (12:31)
--- NOTE | 2018-02-11 18:28 | History & Physical ---
ADMIT DATE: 02/11/2018 HISTORY OF PRESENT ILLNESS: A 72-year-old female patient. The patient is known to have history of multiple problems including history of hypertension, history of hypothyroidism, history of bipolar disorder, was initially admitted to medical floor for left lower leg cellulitis and the patient was pacing and not wanting to have anything done and had a psychiatric evaluation, who decided this patient needs acute Geropsych to control her behavior. The patient was admitted to Geropsych Unit where I will be following the patient and also monitoring her medications. PHYSICAL EXAMINATION: HEAD: Normal. ENT: Normal. NECK: Supple, nontender. LUNGS: Clear. CARDIOVASCULAR SYSTEM: S1, S2 heard. ABDOMEN: Soft. Bowel sounds are heard. CENTRAL NERVOUS SYSTEM: Grossly normal. EXTREMITIES: Left lower leg cellulitis was noted. PLAN: The patient had cellulitis, bipolar disorder, hypothyroidism, history of hypertension. PLAN: We are going to give p.o. antibiotics and I will have followup along with Dr. Li. [facility]# [id number]
[2018-02-11 19:24] VITALS: BP 110/70
[2018-02-12] MEDS: Levothyroxine 0.1 Mg Tab PO SCH (06:42)
[2018-02-12] MEDS: Multivitamin w/ Minerals Tab PO SCH (09:50)
[2018-02-12] MEDS: Haldol Oral Sol.(concentrate) 10 mg/5 mL Udc PO SCH ×2 (09:50→17:30)
--- NOTE | 2018-02-12 17:07 | General Progress Note ---
Subjective - Review of Systems Subjective: pt. has left lower leg cellulitis, L left pain Objective - Results Recent Labs: Laboratory Last Values POC Glucose 69 MG/DL (70 - 105) L 02/12/18 12:07 - Physical Exam Vitals and I&O: Vital Signs Temp 97.4 F 02/12/18 15:46 Pulse 64 02/12/18 15:46 Resp 18 02/12/18 15:46 BP 107/54 02/12/18 15:46 Pulse Ox 97 02/12/18 15:46 Intake & Output 02/11/18 02/12/18 02/12/18 18:59 06:59 18:59 Intake Total 900 540 Balance 900 540 Weight (lbs) 46.918 kg Intake: Oral 900 540 Other: # Voids 2 1 Stool Characteristics Formed Weight Source Patient stated Active Medications: Current Medications Acetaminophen (Tylenol) 650 mg PO Q4HR PRN PRN Reason: Mild Pain / Temp above 100 Stop: 04/12/18 12:30 Al Hydrox/Mg Hydrox/Simethicone (Maalox) 30 ml PO Q4HR PRN PRN Reason: GI DISTRESS Stop: 04/12/18 12:30 Docusate Sodium (Colace) 100 mg PO DAILY [facility] Stop: 04/13/18 08:59 Last Admin: 02/12/18 09:50 Dose: Not Given Gabapentin (Neurontin) 100 mg PO TID [facility] Stop: 04/12/18 13:59 Last Admin: 02/12/18 14:45 Dose: Not Given Haloperidol Lactate (Haldol Concentrate 10mg/5ml Susp) 2 mg PO BID JORDY; Protocol Stop: 04/13/18 08:59 Last Admin: 02/12/18 09:50 Dose: Not Given Levothyroxine Sodium (Synthroid) 0.1 mg PO QDAC [facility] Stop: 04/13/18 07:29 Last Admin: 02/12/18 06:42 Dose: Not Given Lorazepam (Ativan) 0.5 mg PO Q6HR PRN; Protocol PRN Reason: Agitation Stop: 04/12/18 15:49 Magnesium Hydroxide (Milk Of Magnesia) 30 ml PO DAILY PRN PRN Reason: Constipation Stop: 04/12/18 12:30 Metformin HCl (Glucophage) 500 mg PO BID [facility] Stop: 04/12/18 16:59 Last Admin: 02/12/18 09:50 Dose: Not Given Risperidone (Risperdal) 1 mg PO BID JORDY; Protocol Stop: 04/13/18 08:59 Last Admin: 02/12/18 09:50 Dose: Not Given Zolpidem Tartrate (Ambien) 5 mg PO HS PRN PRN Reason: Insomnia Stop: 04/12/18 15:51 General: Alert, No acute distress HEENT: PERRLA, EOMI Neck: Supple Cardiovascular: Normal S1, Normal S2 Lungs: Clear to auscultation Abdomen: Bowel sounds Extremities: Other (left lower extremity erythema and edema) - Procedures Procedures: Procedures Procedure Code Date GROUP PSYCHOTHERAPY 54838 10/17/15 GROUP PSYCHOTHERAPY GZHZZZZ 10/17/15 Assessment/Plan - Assessment Assessment: LEFT leg cellulitis bipolar disorder hypothyroidism HTN - Plan Plan: Abxs continue current orders continue present management
--- NOTE | 2018-02-12 22:46 | Progress Notes ---
DATE: SUBJECTIVE: Chart reviewed and the patient interviewed. Also discussed the patient's condition with the staff and reviewed records and labs. The patient is forgetful and she is still isolative and withdrawn. The patient also still has poor hygiene and is still uncooperative . The patient also seems to be suspicious and paranoid. Otherwise, the patient is slightly easier to redirect her. ASSESSMENT: The patient is still psychotic and agitated. TREATMENT PLAN: The patient has refused to take her medications. We hopefully that will help patient's compliance with taking her medications. We will also encourage the patient to take Risperdal and also continue to work her irritability and her anger. We will continue to follow up closely. [facility]# [id number]
[2018-02-13] MEDS: Levothyroxine 0.1 Mg Tab PO SCH (06:36)
[2018-02-13] MEDS: Multivitamin w/ Minerals Tab PO SCH ×2 (09:13→09:18)
[2018-02-13] MEDS: Haldol Oral Sol.(concentrate) 10 mg/5 mL Udc PO SCH ×2 (09:18→17:08)
[2018-02-14] MEDS: Levothyroxine 0.1 Mg Tab PO SCH (06:50)
[2018-02-14] MEDS: Haldol Oral Sol.(concentrate) 10 mg/5 mL Udc PO SCH ×2 (09:53→19:00)
[2018-02-14] MEDS: Multivitamin w/ Minerals Tab PO SCH (09:54)
--- NOTE | 2018-02-14 22:30 | Progress Notes ---
DATE: 02/13/2018 SUBJECTIVE: Chart reviewed and the patient interviewed. Also, discussed the patient's condition with the staff and reviewed records and labs. The patient is still confused and forgetful. The patient also still continues to go to the nurse's station asking to talk on the phone and when she has the phone, she talks to imaginary people without even dialing a number and carry on conversation with nobody. She is still slightly confused and she needs lots of redirections. The patient started to take her medications yesterday with no side effects. At the same time, the patient is exhibiting no major behavior problems, but she still seems to be depressed and argumentative at times. ASSESSMENT: The patient is still depressed and slightly confused. TREATMENT PLAN: Continue monitoring her behavior closely. Also, continue to work on her ineffective coping and continue to follow up closely. JOB# [id number]
--- NOTE | 2018-02-14 23:19 | Progress Notes ---
DATE: 02/14/2018 SUBJECTIVE: The patient under the care of Dr. Bowles, noted to be forgetful, isolative, withdrawn, poor appetite. The patient noted that wheelchair and that is why she is here. She is quite suspicious, responding to my questions with "is not important, why is that important." The patient is somewhat malodorous, noted to be confused, at times refusing medications, at times not following directions. The patient feels she is not safe in the hospital, wants to leave immediately. It is unclear if she will be able to care for her basic needs. ASSESSMENT: The patient remains symptomatic, somewhat confused as to why she is here, refusing treatments, ''I do not belong here.'' Noted to be irritated, states she belongs to "[facility]." Noted to be somewhat unruly by staff. Currently, here on a hold for danger to self or concerns about her ability to care for herself. Noted to be agitated , history of apparently bipolar disorder. PLAN: We will continue to monitor. We will initiate a 14-day hold. Given her ongoing symptoms, she is not currently safe for discharge. JOB# [id number]
--- NOTE | 2018-02-15 03:22 | Progress Notes ---
DATE: 02/14/2018 SUBJECTIVE: The patient was seen on the dining table. He seems to be irritable, guarded, easily gets frustrated, and poor concentration. The patient appears to be paranoid as well. Otherwise, the patient is in no acute distress. OBJECTIVE: VITAL SIGNS: Temperature 97.6, heart rate 66, respirations 18, blood pressure 114/54. HEENT: Head is atraumatic and normocephalic. Eyes: Bilateral conjunctivae are clear. Bilateral pupils are equally round and reactive. NECK: Supple. No JVD. CARDIOVASCULAR: S1 and S2, without murmur. PULMONARY: Clear to auscultation. GASTROINTESTINAL: Soft and nontender without guarding. Positive bowel sounds. MUSCULOSKELETAL: No clubbing. No cyanosis noted. ASSESSMENT: 1. Psychosis. 2. Osteoarthritis. 3. Neuropathy. 4. Hypothyroidism. 5. Diabetes. PLAN: We will keep the patient in inpatient psychiatric unit. We will follow up with a psychiatrist to monitor the patient's condition and behavior. Treatment plans were discussed with the patient's nurse. Treatment plans were discussed with Dr. Luna. JOB# [id number]
[2018-02-15] MEDS: Levothyroxine 0.1 Mg Tab PO SCH (06:39)
--- NOTE | 2018-02-15 07:21 | Progress Notes ---
DATE: 02/15/2018 SUBJECTIVE: The patient in the hospital, confused, refusing treatment, at times forgetful, rude, difficult to approach, per nursing staff did not sleep very well last night, not want to take treatment stating no treatment has been offered to her. The patient disoriented on exam. The patient still stating that "a cycle kicked my leg." It is unclear how she hurt her leg. Noted to be irritable, preoccupied at times selectively mute, staying to herself, it is unclear why she is refusing care. ASSESSMENT: The patient remains symptomatic, poorly oriented, suspicious, guarded. PLAN: We will continue to monitor, adjust and titrate medications, continue to encourage med compliance. Given her ongoing symptoms, she is not safe for discharge. [facility]# [id number]
[2018-02-15] MEDS: Haldol Oral Sol.(concentrate) 10 mg/5 mL Udc PO SCH ×2 (09:47→16:21)
[2018-02-15] MEDS: Multivitamin w/ Minerals Tab PO SCH (09:47)
--- NOTE | 2018-02-15 11:52 | General Progress Note ---
Subjective - Review of Systems Events since last encounter: patient is confused paranoid Subjective: pt. has left lower leg cellulitis, L left pain Objective - Results Recent Labs: Laboratory Last Values POC Glucose 69 MG/DL (70 - 105) L 02/12/18 12:07 - Physical Exam Vitals and I&O: Vital Signs Temp 98.6 F 02/15/18 05:34 Pulse 73 02/15/18 05:34 Resp 18 02/15/18 05:34 BP 113/68 02/15/18 05:34 Pulse Ox 97 02/15/18 05:34 Intake & Output 02/14/18 02/15/18 02/15/18 18:59 06:59 18:59 Intake Total 950 Balance 950 Intake: Oral 950 Other: # Voids 4 # Bowel Movements 1 Active Medications: Current Medications Acetaminophen (Tylenol) 650 mg PO Q4HR PRN PRN Reason: Mild Pain / Temp above 100 Stop: 04/12/18 12:30 Al Hydrox/Mg Hydrox/Simethicone (Maalox) 30 ml PO Q4HR PRN PRN Reason: GI DISTRESS Stop: 04/12/18 12:30 Docusate Sodium (Colace) 100 mg PO DAILY [facility] Stop: 04/13/18 08:59 Last Admin: 02/15/18 09:47 Dose: Not Given Gabapentin (Neurontin) 100 mg PO TID [facility] Stop: 04/12/18 13:59 Last Admin: 02/15/18 09:47 Dose: Not Given Haloperidol Lactate (Haldol Concentrate 10mg/5ml Susp) 2 mg PO BID JORDY; Protocol Stop: 04/13/18 08:59 Last Admin: 02/15/18 09:47 Dose: Not Given Levothyroxine Sodium (Synthroid) 0.1 mg PO QDAC [facility] Stop: 04/13/18 07:29 Last Admin: 02/15/18 06:39 Dose: Not Given Lorazepam (Ativan) 0.5 mg PO Q6HR PRN; Protocol PRN Reason: Agitation Stop: 04/12/18 15:49 Magnesium Hydroxide (Milk Of Magnesia) 30 ml PO DAILY PRN PRN Reason: Constipation Stop: 04/12/18 12:30 Metformin HCl (Glucophage) 500 mg PO BID [facility] Stop: 04/12/18 16:59 Last Admin: 02/15/18 09:47 Dose: Not Given Risperidone (Risperdal) 1 mg PO BID JORDY; Protocol Stop: 04/13/18 08:59 Last Admin: 02/15/18 09:47 Dose: Not Given Zolpidem Tartrate (Ambien) 5 mg PO HS PRN PRN Reason: Insomnia Stop: 04/12/18 15:51 Last Admin: 02/13/18 22:08 Dose: 5 mg General: Alert, No acute distress HEENT: PERRLA, EOMI Neck: Supple Cardiovascular: Normal S1, Normal S2 Lungs: Clear to auscultation Abdomen: Bowel sounds Extremities: Other (left lower extremity erythema and edema) - Procedures Procedures: Procedures Procedure Code Date GROUP PSYCHOTHERAPY 06460 10/17/15 GROUP PSYCHOTHERAPY GZHZZZZ 10/17/15 Assessment/Plan - Assessment Assessment: LEFT leg cellulitis bipolar disorder hypothyroidism HTN - Plan Plan: Abxs continue current orders continue present management Nutritional Asmnt/Malnutr-PDOC - Dietary Evaluation Malnutrition Findings (Please click <Entered> for more info): Nutritional Asmnt/Malnutrition Start: 02/14/18 10: 39 Text: Status: Complete Freq: Protocol: Document 02/14/18 10:39 DALTON (Rec: 02/14/18 10:43 DALTON NAMITA- FNS1) Nutritional Asmnt/Malnutrition Patient General Information Diagnosis Psychosis Pertinent Medical Hx/Surgical Hx hypothyroidism, bipolar disorder, DM, polyneuropathy, HTN, hyperlipidemia Subjective Information Pt sitting up in rec room at time of visit, staed good appetite Current Diet Order/ Nutrition Support Vegetarian Regular diet Pertinent Medications none noted Pertinent Labs 02/10: Na 137, K 3.5, Cl 104, CO2 28.5, BUN 18, Cr 0.5, glucose 84, Ca 9.3 Nutritional Hx/Data Height 1.55 m Height (Calculated Centimeters) 154.9 Current Weight (lbs) 46.72 kg Weight (Calculated Kilograms) 46.7 Weight (Calculated Grams) 84211.0 Body Mass Index (BMI) 19.4 Weight Status Approriate GI Symptoms GI Symptoms None Last BM none noted Cultural/Ethnic/Restoration Belief Vegetarian Usual diet at home Vegetarian Skin Integrity/Comment: Yajaira score 19 Estimated Nutritional Goals BEE in Kcals: Using Current wt Calories/Kcals/Kg 25-30kcals/kg Kcals Calculated 1175-1410kcals/day Protein: Using Current wt Protein g/k-1.1g/kg Protein Calculated 47-52g/day Fluid: ml 1175-1410ml/day (1ml/kcal) Nutritional Problem 1. Problem Problem No nutrition diagnosis at this time Intervention/Recommendation Comments Recommend continuing Vegetarian Regular diet Expected Outcomes/Goals Expected Outcomes/Goals PO intake >75% of meals
[2018-02-16] MEDS: Levothyroxine 0.1 Mg Tab PO SCH (06:43)
[2018-02-16] MEDS: Haldol Oral Sol.(concentrate) 10 mg/5 mL Udc PO SCH ×3 (09:37→16:26)
[2018-02-16] MEDS: Multivitamin w/ Minerals Tab PO SCH (09:38)
--- NOTE | 2018-02-16 14:58 | General Progress Note ---
Subjective - Review of Systems Events since last encounter: patient still confused in no distress denies pain Subjective: pt. has left lower leg cellulitis, L left pain Objective - Results Recent Labs: Laboratory Last Values POC Glucose 69 MG/DL (70 - 105) L 02/12/18 12:07 - Physical Exam Vitals and I&O: Vital Signs Temp 98.4 F 02/16/18 06:20 Pulse 68 02/16/18 06:20 Resp 20 02/16/18 06:20 BP 149/74 02/16/18 06:20 Pulse Ox 98 02/16/18 06:20 Intake & Output 02/15/18 02/16/18 02/16/18 18:59 06:59 18:59 Intake Total 1200 360 Balance 1200 360 Intake: Oral 1200 360 Other: # Voids 3 1 # Bowel Movements 0 0 Active Medications: Current Medications Acetaminophen (Tylenol) 650 mg PO Q4HR PRN PRN Reason: Mild Pain / Temp above 100 Stop: 04/12/18 12:30 Al Hydrox/Mg Hydrox/Simethicone (Maalox) 30 ml PO Q4HR PRN PRN Reason: GI DISTRESS Stop: 04/12/18 12:30 Docusate Sodium (Colace) 100 mg PO DAILY [facility] Stop: 04/13/18 08:59 Last Admin: 02/16/18 09:38 Dose: Not Given Gabapentin (Neurontin) 100 mg PO TID [facility] Stop: 04/12/18 13:59 Last Admin: 02/16/18 13:01 Dose: Not Given Haloperidol Lactate (Haldol Concentrate 10mg/5ml Susp) 2 mg PO BID JORDY; Protocol Stop: 04/13/18 08:59 Last Admin: 02/16/18 10:14 Dose: Not Given Levothyroxine Sodium (Synthroid) 0.1 mg PO QDAC [facility] Stop: 04/13/18 07:29 Last Admin: 02/16/18 06:43 Dose: Not Given Lorazepam (Ativan) 0.5 mg PO Q6HR PRN; Protocol PRN Reason: Agitation Stop: 04/12/18 15:49 Magnesium Hydroxide (Milk Of Magnesia) 30 ml PO DAILY PRN PRN Reason: Constipation Stop: 04/12/18 12:30 Metformin HCl (Glucophage) 500 mg PO BID [facility] Stop: 04/12/18 16:59 Last Admin: 02/16/18 09:37 Dose: Not Given Risperidone (Risperdal) 1 mg PO BID JORDY; Protocol Stop: 04/13/18 08:59 Last Admin: 02/16/18 09:38 Dose: Not Given Zolpidem Tartrate (Ambien) 5 mg PO HS PRN PRN Reason: Insomnia Stop: 04/12/18 15:51 Last Admin: 02/13/18 22:08 Dose: 5 mg General: Alert, No acute distress HEENT: PERRLA, EOMI Neck: Supple Cardiovascular: Normal S1, Normal S2 Lungs: Clear to auscultation Abdomen: Bowel sounds Extremities: Other (left lower extremity erythema and edema) - Procedures Procedures: Procedures Procedure Code Date GROUP PSYCHOTHERAPY 29870 10/17/15 GROUP PSYCHOTHERAPY GZHZZZZ 10/17/15 Assessment/Plan - Assessment Assessment: LEFT leg cellulitis bipolar disorder hypothyroidism HTN - Plan Plan: Abxs continue current orders continue present management Nutritional Asmnt/Malnutr-PDOC - Dietary Evaluation Malnutrition Findings (Please click <Entered> for more info): Nutritional Asmnt/Malnutrition Start: 02/14/18 10: 39 Text: Status: Complete Freq: Protocol: Document 02/14/18 10:39 DALTON (Rec: 02/14/18 10:43 DALTON BREAUX- FNS1) Nutritional Asmnt/Malnutrition Patient General Information Diagnosis Psychosis Pertinent Medical Hx/Surgical Hx hypothyroidism, bipolar disorder, DM, polyneuropathy, HTN, hyperlipidemia Subjective Information Pt sitting up in rec room at time of visit, staed good appetite Current Diet Order/ Nutrition Support Vegetarian Regular diet Pertinent Medications none noted Pertinent Labs 02/10: Na 137, K 3.5, Cl 104, CO2 28.5, BUN 18, Cr 0.5, glucose 84, Ca 9.3 Nutritional Hx/Data Height 1.55 m Height (Calculated Centimeters) 154.9 Current Weight (lbs) 46.72 kg Weight (Calculated Kilograms) 46.7 Weight (Calculated Grams) 43111.0 Body Mass Index (BMI) 19.4 Weight Status Approriate GI Symptoms GI Symptoms None Last BM none noted Cultural/Ethnic/Adventism Belief Vegetarian Usual diet at home Vegetarian Skin Integrity/Comment: Yajaira score 19 Estimated Nutritional Goals BEE in Kcals: Using Current wt Calories/Kcals/Kg 25-30kcals/kg Kcals Calculated 1175-1410kcals/day Protein: Using Current wt Protein g/k-1.1g/kg Protein Calculated 47-52g/day Fluid: ml 1175-1410ml/day (1ml/kcal) Nutritional Problem 1. Problem Problem No nutrition diagnosis at this time Intervention/Recommendation Comments Recommend continuing Vegetarian Regular diet Expected Outcomes/Goals Expected Outcomes/Goals PO intake >75% of meals
--- NOTE | 2018-02-16 21:52 | Progress Notes ---
DATE: 02/16/[address] Bowles. Case was discussed with staff of the patient, reviewed records. This is a 72-year-old female who was admitted on 02/11/2018 because of psychotic behavior, agitation. The patient continues to be forgetful, isolating herself. Continues to have poor hygiene, uncooperative, impulsive, needing redirection. Continues to be unable to participate in meaningful conversation. She also has been refusing her medications. When I asked her why she did not take her medication, she said she is here because she has medical issues. She has never had any psychotic issues, but she is starting to eat better the staff reported and I am not sure if Dr. Bowles would like to Riese her. She is on Haldol 2 mg twice a day and Risperdal 1 mg twice a day and it is hard to adjust medication as she has not taken it. We will continue outpatient group therapy, milieu therapy, and adjust medications as needed. [facility]# [id number]
[2018-02-17] MEDS: Levothyroxine 0.1 Mg Tab PO SCH (06:44)
[2018-02-17] MEDS: Multivitamin w/ Minerals Tab PO SCH (08:37)
[2018-02-17] MEDS: Haldol Oral Sol.(concentrate) 10 mg/5 mL Udc PO SCH ×2 (08:37→18:07)
--- NOTE | 2018-02-17 11:40 | Internal Medicine Prog Note ---
Internal Medicine Subjective - Subjective Service Date: 02/17/18 Patient seen and examined:: with staff Patient is:: awake Per staff patient has:: tolerating meds Internal Medicine Objective - Results Recent Labs: Laboratory Last Values POC Glucose 69 MG/DL (70 - 105) L 02/12/18 12:07 - Physical Exam Vitals and I&O: Vital Signs Temp 98.0 F 02/16/18 15:24 Pulse 70 02/16/18 15:24 Resp 20 02/17/18 06:21 BP 142/68 02/16/18 15:24 Pulse Ox 98 02/16/18 15:24 Intake & Output 02/16/18 02/17/18 02/17/18 18:59 06:59 18:59 Intake Total 1200 Balance 1200 Intake: Oral 1200 Other: # Voids 3 Active Medications: Current Medications Acetaminophen (Tylenol) 650 mg PO Q4HR PRN PRN Reason: Mild Pain / Temp above 100 Stop: 04/12/18 12:30 Al Hydrox/Mg Hydrox/Simethicone (Maalox) 30 ml PO Q4HR PRN PRN Reason: GI DISTRESS Stop: 04/12/18 12:30 Docusate Sodium (Colace) 100 mg PO DAILY [facility] BEDS AT [facility] Stop: 04/13/18 08:59 Last Admin: 02/17/18 08:37 Dose: Not Given Gabapentin (Neurontin) 100 mg PO TID [facility] Stop: 04/12/18 13:59 Last Admin: 02/17/18 08:37 Dose: Not Given Haloperidol Lactate (Haldol Concentrate 10mg/5ml Susp) 2 mg PO BID JORDY; Protocol Stop: 04/13/18 08:59 Last Admin: 02/17/18 08:37 Dose: Not Given Levothyroxine Sodium (Synthroid) 0.1 mg PO QDAC [facility] Stop: 04/13/18 07:29 Last Admin: 02/17/18 06:44 Dose: Not Given Lorazepam (Ativan) 0.5 mg PO Q6HR PRN; Protocol PRN Reason: Agitation Stop: 04/12/18 15:49 Magnesium Hydroxide (Milk Of Magnesia) 30 ml PO DAILY PRN PRN Reason: Constipation Stop: 04/12/18 12:30 Metformin HCl (Glucophage) 500 mg PO BID [facility] Stop: 04/12/18 16:59 Last Admin: 02/17/18 08:37 Dose: Not Given Risperidone (Risperdal) 1 mg PO BID JORDY; Protocol Stop: 04/13/18 08:59 Last Admin: 02/17/18 08:37 Dose: Not Given Zolpidem Tartrate (Ambien) 5 mg PO HS PRN PRN Reason: Insomnia Stop: 04/12/18 15:51 Last Admin: 02/13/18 22:08 Dose: 5 mg General: alert HEENT: NC/AT, PERRLA Neck: Supple Lungs: CTAB Cardiovascular: RRR, Normal S1, Normal S2, without murmur Abdomen: soft, non-tender, non-distended, positive bowel sound Neurological: alert - Procedures Procedures: Procedures Procedure Code Date GROUP PSYCHOTHERAPY 06606 10/17/15 GROUP PSYCHOTHERAPY GZHZZZZ 10/17/15 Internal Medicine Assmt/Plan - Assessment Assessment: LEFT leg cellulitis bipolar disorder hypothyroidism HTN - Plan Plan: continue oral abx continue current plan of care Nutritional Asmnt/Malnutr-PDOC - Dietary Evaluation Malnutrition Findings (Please click <Entered> for more info): Nutritional Asmnt/Malnutrition Start: 02/14/18 10: 39 Text: Status: Complete Freq: Protocol: Document 02/14/18 10:39 DALTON (Rec: 02/14/18 10:43 DALTON BREAUX- FNS1) Nutritional Asmnt/Malnutrition Patient General Information Diagnosis Psychosis Pertinent Medical Hx/Surgical Hx hypothyroidism, bipolar disorder, DM, polyneuropathy, HTN, hyperlipidemia Subjective Information Pt sitting up in rec room at time of visit, staed good appetite Current Diet Order/ Nutrition Support Vegetarian Regular diet Pertinent Medications none noted Pertinent Labs 02/10: Na 137, K 3.5, Cl 104, CO2 28.5, BUN 18, Cr 0.5, glucose 84, Ca 9.3 Nutritional Hx/Data Height 5 ft 1 in Height (Calculated Centimeters) 154.9 Current Weight (lbs) 103 lb Weight (Calculated Kilograms) 46.7 Weight (Calculated Grams) 27826.0 Body Mass Index (BMI) 19.4 Weight Status Approriate GI Symptoms GI Symptoms None Last BM none noted Cultural/Ethnic/Quaker Belief Vegetarian Usual diet at home Vegetarian Skin Integrity/Comment: Yajaira score 19 Estimated Nutritional Goals BEE in Kcals: Using Current wt Calories/Kcals/Kg 25-30kcals/kg Kcals Calculated 1175-1410kcals/day Protein: Using Current wt Protein g/k-1.1g/kg Protein Calculated 47-52g/day Fluid: ml 1175-1410ml/day (1ml/kcal) Nutritional Problem 1. Problem Problem No nutrition diagnosis at this time Intervention/Recommendation Comments Recommend continuing Vegetarian Regular diet Expected Outcomes/Goals Expected Outcomes/Goals PO intake >75% of meals
[2018-02-17] MEDS ORDERED: Haloperidol Lactate 5 mg/mL 1mL Vial ONE (13:07)
[2018-02-17] MEDS ORDERED: Haloperidol Lactate 5 mg/mL 1mL Vial IM ONE (13:08)
--- NOTE | 2018-02-17 22:32 | Progress Notes ---
DATE: 02/17/2018 Case was discussed with staff of the patient, reviewed records. The patient continues to be delusional, refused to take medications. She believes she is here because of her physical condition, has more medical issues ____ that she is not a psychotic person. She is still unpredictable, impulsive, needing redirection, very poor insight. Staff had to medicate her because of her agitated and uncontrollable behavior and we will continue outpatient group therapy, milieu therapy, and adjust the medication as needed. JOB# [id number]
[2018-02-18] MEDS: Levothyroxine 0.1 Mg Tab PO SCH (06:55)
[2018-02-18] MEDS: Haldol Oral Sol.(concentrate) 10 mg/5 mL Udc PO SCH ×2 (09:22→17:56)
[2018-02-18] MEDS: Multivitamin w/ Minerals Tab PO SCH (09:22)
[2018-02-18] MEDS ORDERED: Haloperidol Lactate 5 mg/mL 1mL Vial ONE (10:13)
[2018-02-18] MEDS ORDERED: Haloperidol Lactate 5 mg/mL 1mL Vial IM ONE (10:25)
--- NOTE | 2018-02-18 13:10 | General Progress Note ---
Subjective - Review of Systems Events since last encounter: patient still delusional refused to take her medications Subjective: pt. has left lower leg cellulitis, L left pain Objective - Results Recent Labs: Laboratory Last Values POC Glucose 69 MG/DL (70 - 105) L 02/12/18 12:07 - Physical Exam Vitals and I&O: Vital Signs Temp 97.6 F 02/18/18 06:08 Pulse 58 02/18/18 06:08 Resp 20 02/18/18 06:08 BP 110/65 02/18/18 06:08 Pulse Ox 98 02/18/18 06:08 Intake & Output 02/17/18 02/18/18 02/18/18 18:59 06:59 18:59 Intake Total 60 Output Total 0 Balance 0 60 Intake: Oral 60 Output: Stool 0 Other: # Voids 2 1 # Bowel Movements 0 Active Medications: Current Medications Acetaminophen (Tylenol) 650 mg PO Q4HR PRN PRN Reason: Mild Pain / Temp above 100 Stop: 04/12/18 12:30 Al Hydrox/Mg Hydrox/Simethicone (Maalox) 30 ml PO Q4HR PRN PRN Reason: GI DISTRESS Stop: 04/12/18 12:30 Docusate Sodium (Colace) 100 mg PO DAILY [facility] Stop: 04/13/18 08:59 Last Admin: 02/18/18 09:22 Dose: Not Given Gabapentin (Neurontin) 100 mg PO TID [facility] Stop: 04/12/18 13:59 Last Admin: 02/18/18 09:22 Dose: Not Given Haloperidol Lactate (Haldol Concentrate 10mg/5ml Susp) 2 mg PO BID [facility]; Protocol Stop: 04/13/18 08:59 Last Admin: 02/18/18 09:22 Dose: Not Given Levothyroxine Sodium (Synthroid) 0.1 mg PO QDAC [facility] Stop: 04/13/18 07:29 Last Admin: 02/18/18 06:55 Dose: 0.1 mg Lorazepam (Ativan) 0.5 mg PO Q6HR PRN; Protocol PRN Reason: Agitation Stop: 04/12/18 15:49 Magnesium Hydroxide (Milk Of Magnesia) 30 ml PO DAILY PRN PRN Reason: Constipation Stop: 04/12/18 12:30 Metformin HCl (Glucophage) 500 mg PO BID [facility] Stop: 04/12/18 16:59 Last Admin: 02/18/18 09:22 Dose: Not Given Risperidone (Risperdal) 2 mg PO BID [facility]; Protocol Stop: 04/19/18 08:59 Last Admin: 02/18/18 09:22 Dose: Not Given Zolpidem Tartrate (Ambien) 5 mg PO HS PRN PRN Reason: Insomnia Stop: 04/12/18 15:51 Last Admin: 02/13/18 22:08 Dose: 5 mg General: Alert, No acute distress HEENT: PERRLA, EOMI Neck: Supple Cardiovascular: Normal S1, Normal S2 Lungs: Clear to auscultation Abdomen: Bowel sounds Extremities: Other (left lower extremity erythema and edema) - Procedures Procedures: Procedures Procedure Code Date GROUP PSYCHOTHERAPY 27834 10/17/15 GROUP PSYCHOTHERAPY GZHZZZZ 10/17/15 Assessment/Plan - Assessment Assessment: LEFT leg cellulitis bipolar disorder hypothyroidism HTN - Plan Plan: Abxs continue current orders continue present management Nutritional Asmnt/Malnutr-PDOC - Dietary Evaluation Malnutrition Findings (Please click <Entered> for more info): Nutritional Asmnt/Malnutrition Start: 02/14/18 10: 39 Text: Status: Complete Freq: Protocol: Document 02/14/18 10:39 DALTON (Rec: 02/14/18 10:43 DALTON BREAUX- FNS1) Nutritional Asmnt/Malnutrition Patient General Information Diagnosis Psychosis Pertinent Medical Hx/Surgical Hx hypothyroidism, bipolar disorder, DM, polyneuropathy, HTN, hyperlipidemia Subjective Information Pt sitting up in rec room at time of visit, staed good appetite Current Diet Order/ Nutrition Support Vegetarian Regular diet Pertinent Medications none noted Pertinent Labs 02/10: Na 137, K 3.5, Cl 104, CO2 28.5, BUN 18, Cr 0.5, glucose 84, Ca 9.3 Nutritional Hx/Data Height 1.55 m Height (Calculated Centimeters) 154.9 Current Weight (lbs) 46.72 kg Weight (Calculated Kilograms) 46.7 Weight (Calculated Grams) 23370.0 Body Mass Index (BMI) 19.4 Weight Status Approriate GI Symptoms GI Symptoms None Last BM none noted Cultural/Ethnic/L[employer] Day Belief Vegetarian Usual diet at home Vegetarian Skin Integrity/Comment: Yajaira score 19 Estimated Nutritional Goals BEE in Kcals: Using Current wt Calories/Kcals/Kg 25-30kcals/kg Kcals Calculated 1175-1410kcals/day Protein: Using Current wt Protein g/k-1.1g/kg Protein Calculated 47-52g/day Fluid: ml 1175-1410ml/day (1ml/kcal) Nutritional Problem 1. Problem Problem No nutrition diagnosis at this time Intervention/Recommendation Comments Recommend continuing Vegetarian Regular diet Expected Outcomes/Goals Expected Outcomes/Goals PO intake >75% of meals
[2018-02-19] MEDS: Levothyroxine 0.1 Mg Tab PO SCH (06:39)
[2018-02-19] MEDS: Multivitamin w/ Minerals Tab PO SCH (08:57)
[2018-02-19] MEDS: Haldol Oral Sol.(concentrate) 10 mg/5 mL Udc PO SCH ×2 (08:57→16:58)
--- NOTE | 2018-02-19 16:07 | General Progress Note ---
Subjective - Review of Systems Events since last encounter: Left leg pain-well controlled with pain meds Subjective: pt. has left lower leg cellulitis, L left pain Objective - Results Recent Labs: Laboratory Last Values POC Glucose 69 MG/DL (70 - 105) L 02/12/18 12:07 - Physical Exam Vitals and I&O: Vital Signs Temp 97.7 F 02/19/18 14:00 Pulse 65 02/19/18 14:00 Resp 20 02/19/18 14:00 BP 121/55 02/19/18 14:00 Pulse Ox 98 02/19/18 14:00 Intake & Output 02/18/18 02/19/18 02/19/18 18:59 06:59 18:59 Output Total 0 Balance 0 Output: Stool 0 Other: # Voids 2 Active Medications: Current Medications Acetaminophen (Tylenol) 650 mg PO Q4HR PRN PRN Reason: Mild Pain / Temp above 100 Stop: 04/12/18 12:30 Al Hydrox/Mg Hydrox/Simethicone (Maalox) 30 ml PO Q4HR PRN PRN Reason: GI DISTRESS Stop: 04/12/18 12:30 Docusate Sodium (Colace) 100 mg PO DAILY [facility] Stop: 04/13/18 08:59 Last Admin: 02/19/18 08:57 Dose: Not Given Gabapentin (Neurontin) 100 mg PO TID [facility] Stop: 04/12/18 13:59 Last Admin: 02/19/18 13:07 Dose: Not Given Haloperidol Lactate (Haldol Concentrate 10mg/5ml Susp) 2 mg PO BID [facility]; Protocol Stop: 04/13/18 08:59 Last Admin: 02/19/18 08:57 Dose: Not Given Levothyroxine Sodium (Synthroid) 0.1 mg PO QDAC [facility] Stop: 04/13/18 07:29 Last Admin: 02/19/18 06:39 Dose: 0.1 mg Magnesium Hydroxide (Milk Of Magnesia) 30 ml PO DAILY PRN PRN Reason: Constipation Stop: 04/12/18 12:30 Metformin HCl (Glucophage) 500 mg PO BID [facility] Stop: 04/12/18 16:59 Last Admin: 02/19/18 08:57 Dose: Not Given Risperidone (Risperdal) 2 mg PO BID [facility]; Protocol Stop: 04/19/18 08:59 Last Admin: 02/19/18 08:57 Dose: Not Given General: Alert, No acute distress HEENT: PERRLA, EOMI Neck: Supple Cardiovascular: Normal S1, Normal S2 Lungs: Clear to auscultation Abdomen: Bowel sounds Extremities: Other (left lower extremity erythema and edema) - Procedures Procedures: Procedures Procedure Code Date GROUP PSYCHOTHERAPY 21423 10/17/15 GROUP PSYCHOTHERAPY GZHZZZZ 10/17/15 Assessment/Plan - Assessment Assessment: LEFT leg cellulitis bipolar disorder hypothyroidism HTN - Plan Plan: Abxs pain management continue current orders continue present management Nutritional Asmnt/Malnutr-PDOC - Dietary Evaluation Malnutrition Findings (Please click <Entered> for more info): Nutritional Asmnt/Malnutrition Start: 02/14/18 10: 39 Text: Status: Complete Freq: Protocol: Document 02/14/18 10:39 DALTON (Rec: 02/14/18 10:43 DALTON NAMITA- FNS1) Nutritional Asmnt/Malnutrition Patient General Information Diagnosis Psychosis Pertinent Medical Hx/Surgical Hx hypothyroidism, bipolar disorder, DM, polyneuropathy, HTN, hyperlipidemia Subjective Information Pt sitting up in rec room at time of visit, staed good appetite Current Diet Order/ Nutrition Support Vegetarian Regular diet Pertinent Medications none noted Pertinent Labs 02/10: Na 137, K 3.5, Cl 104, CO2 28.5, BUN 18, Cr 0.5, glucose 84, Ca 9.3 Nutritional Hx/Data Height 1.55 m Height (Calculated Centimeters) 154.9 Current Weight (lbs) 46.72 kg Weight (Calculated Kilograms) 46.7 Weight (Calculated Grams) 68337.0 Body Mass Index (BMI) 19.4 Weight Status Approriate GI Symptoms GI Symptoms None Last BM none noted Cultural/Ethnic/Buddhist Belief Vegetarian Usual diet at home Vegetarian Skin Integrity/Comment: Yajaira score 19 Estimated Nutritional Goals BEE in Kcals: Using Current wt Calories/Kcals/Kg 25-30kcals/kg Kcals Calculated 1175-1410kcals/day Protein: Using Current wt Protein g/k-1.1g/kg Protein Calculated 47-52g/day Fluid: ml 1175-1410ml/day (1ml/kcal) Nutritional Problem 1. Problem Problem No nutrition diagnosis at this time Intervention/Recommendation Comments Recommend continuing Vegetarian Regular diet Expected Outcomes/Goals Expected Outcomes/Goals PO intake >75% of meals
--- NOTE | 2018-02-19 16:37 | Progress Notes ---
DATE: 02/18/2018 PSYCHIATRIC PROGRESS NOTE SUBJECTIVE: Chart reviewed and the patient interviewed. Also discussed the patient's condition with the staff and reviewed records and labs. The patient was severely agitated and in irritable mood yesterday and she was intrusive and impulsive and talking nonstop and not able to follow directions and the patient was given Haldol, Ativan and Benadryl injection yesterday. After that, the patient was calmer and she was having more goal-directed thoughts. The patient today is still argumentative and she is although calmer than yesterday, she is still easily agitated and she is talking to other people nonstop. She also today is little bit better in regard that she did take a shower. Also, she is selective in regard to her medications and is still refusing to take medicine. ASSESSMENT: The patient is still psychotic and needs close monitoring. TREATMENT PLAN: Continue monitoring her behavior and her condition closely and also continue to work on her compliance with medications and continue to work on discharge plans. [facility]# [id number]
--- NOTE | 2018-02-20 00:54 | Progress Notes ---
DATE: 02/19/2018 SUBJECTIVE: Chart reviewed and the patient interviewed. Also discussed the patient's condition with the staff and reviewed records and labs. The patient is still confused and she is preoccupied and responding to stimuli. The patient also is still in angry and in irritable mood. The patient also tried to grab some of the staff from the arms. She is easily agitated and easily irritable. She also uncooperative and the patient refused to take her medications. Otherwise, the patient is compliant, is slightly easier to redirect her. ASSESSMENT: The patient is still agitated and in irritable mood. TREATMENT PLAN: Continue to monitor her behavior and her condition closely. Also, continue to work on her poor impulse control and her irritability. [facility]# [id number]
[2018-02-20] MEDS: Levothyroxine 0.1 Mg Tab PO SCH (07:02)
[2018-02-20] MEDS: Multivitamin w/ Minerals Tab PO SCH (08:54)
[2018-02-20] MEDS: Haldol Oral Sol.(concentrate) 10 mg/5 mL Udc PO SCH ×2 (08:54→16:17)
--- NOTE | 2018-02-20 22:12 | General Progress Note ---
Subjective - Review of Systems Service Date: 02/20/18 Subjective: pt. has left lower leg cellulitis, L left pain Objective - Results Recent Labs: Laboratory Last Values POC Glucose 69 MG/DL (70 - 105) L 02/12/18 12:07 - Physical Exam Vitals and I&O: Vital Signs Temp 97.7 F 02/20/18 15:16 Pulse 60 02/20/18 15:16 Resp 18 02/20/18 15:16 BP 123/57 02/20/18 15:16 Pulse Ox 98 02/20/18 15:16 Intake & Output 02/20/18 02/20/18 02/21/18 06:59 18:59 06:59 Intake Total 1000 Balance 1000 Intake: Oral 1000 Other: # Voids 3 Active Medications: Current Medications Acetaminophen (Tylenol) 650 mg PO Q4HR PRN PRN Reason: Mild Pain / Temp above 100 Stop: 04/12/18 12:30 Al Hydrox/Mg Hydrox/Simethicone (Maalox) 30 ml PO Q4HR PRN PRN Reason: GI DISTRESS Stop: 04/12/18 12:30 Docusate Sodium (Colace) 100 mg PO DAILY [facility] Stop: 04/13/18 08:59 Last Admin: 02/20/18 08:54 Dose: Not Given Gabapentin (Neurontin) 100 mg PO TID [facility] Stop: 04/12/18 13:59 Last Admin: 02/20/18 14:08 Dose: Not Given Haloperidol Lactate (Haldol Concentrate 10mg/5ml Susp) 2 mg PO BID [facility]; Protocol Stop: 04/13/18 08:59 Last Admin: 02/20/18 16:17 Dose: Not Given Levothyroxine Sodium (Synthroid) 0.1 mg PO QDAC [facility] Stop: 04/13/18 07:29 Last Admin: 02/20/18 07:02 Dose: 0.1 mg Magnesium Hydroxide (Milk Of Magnesia) 30 ml PO DAILY PRN PRN Reason: Constipation Stop: 04/12/18 12:30 Metformin HCl (Glucophage) 500 mg PO BID [facility] Stop: 04/12/18 16:59 Last Admin: 02/20/18 16:17 Dose: Not Given Risperidone (Risperdal) 2 mg PO BID [facility]; Protocol Stop: 04/19/18 08:59 Last Admin: 02/20/18 16:17 Dose: Not Given General: Alert, No acute distress HEENT: PERRLA, EOMI Neck: Supple Cardiovascular: Normal S1, Normal S2 Lungs: Clear to auscultation Abdomen: Bowel sounds Extremities: Other (left lower extremity erythema and edema) - Procedures Procedures: Procedures Procedure Code Date GROUP PSYCHOTHERAPY 95767 10/17/15 GROUP PSYCHOTHERAPY GZHZZZZ 10/17/15 Assessment/Plan - Assessment Assessment: LEFT leg cellulitis bipolar disorder hypothyroidism HTN - Plan Plan: Abxs pain management continue current orders continue present management Nutritional Asmnt/Malnutr-PDOC - Dietary Evaluation Malnutrition Findings (Please click <Entered> for more info): Nutritional Asmnt/Malnutrition Start: 02/14/18 10: 39 Text: Status: Complete Freq: Protocol: Document 02/14/18 10:39 DALTON (Rec: 02/14/18 10:43 DALTON NAMITA- FNS1) Nutritional Asmnt/Malnutrition Patient General Information Diagnosis Psychosis Pertinent Medical Hx/Surgical Hx hypothyroidism, bipolar disorder, DM, polyneuropathy, HTN, hyperlipidemia Subjective Information Pt sitting up in rec room at time of visit, staed good appetite Current Diet Order/ Nutrition Support Vegetarian Regular diet Pertinent Medications none noted Pertinent Labs 02/10: Na 137, K 3.5, Cl 104, CO2 28.5, BUN 18, Cr 0.5, glucose 84, Ca 9.3 Nutritional Hx/Data Height 1.55 m Height (Calculated Centimeters) 154.9 Current Weight (lbs) 46.72 kg Weight (Calculated Kilograms) 46.7 Weight (Calculated Grams) 91072.0 Body Mass Index (BMI) 19.4 Weight Status Approriate GI Symptoms GI Symptoms None Last BM none noted Cultural/Ethnic/[employer]yb[employer]ian Belief Vegetarian Usual diet at home Vegetarian Skin Integrity/Comment: Yajaira score 19 Estimated Nutritional Goals BEE in Kcals: Using Current wt Calories/Kcals/Kg 25-30kcals/kg Kcals Calculated 1175-1410kcals/day Protein: Using Current wt Protein g/k-1.1g/kg Protein Calculated 47-52g/day Fluid: ml 1175-1410ml/day (1ml/kcal) Nutritional Problem 1. Problem Problem No nutrition diagnosis at this time Intervention/Recommendation Comments Recommend continuing Vegetarian Regular diet Expected Outcomes/Goals Expected Outcomes/Goals PO intake >75% of meals
[2018-02-21] MEDS: Levothyroxine 0.1 Mg Tab PO SCH (06:41)
--- NOTE | 2018-02-21 07:56 | Progress Notes ---
DATE: SUBJECTIVE: Chart reviewed and the patient interviewed. Also discussed the patient's condition with the staff and reviewed records and labs. The patient is still confused and she still wandering around in a confused state. The patient also is still argumentative and have multiple questions that are unrelated. The patient also is still having episodes of agitation and anger. Otherwise, the patient is taking her medications with no side effects of medications. ASSESSMENT: The patient is still agitated and is still psychotic. TREATMENT PLAN: Continue working on her poor impulse control and her confusion. Also, continue adjusting psychotropic medications and follow up closely. JOB# [id number]
[2018-02-21] MEDS: Haldol Oral Sol.(concentrate) 10 mg/5 mL Udc PO SCH ×2 (08:41→16:30)
[2018-02-21] MEDS: Multivitamin w/ Minerals Tab PO SCH (08:41)
--- NOTE | 2018-02-21 18:21 | Progress Notes ---
DATE: 02/21/2018 SUBJECTIVE: Chart reviewed and the patient interviewed. Also, discussed the patient's condition with the staff and reviewed records and labs. The patient is still confused. The patient also is still forgetful and needs lots of redirections. She also still has labile affect and severe mood swings. The patient also has selectable medications and yesterday she refused to take her morning medications according to the staff's report. Otherwise, the patient is still having major medical problems. The patient also is still cooperative at times and other times is uncooperative and agitated. We will continue monitoring her behavior closely and will continue to follow up. JOB# [id number]
--- NOTE | 2018-02-21 20:39 | Progress Notes ---
DATE: 02/21/2018 SUBJECTIVE: The patient was seen in the dining area. The patient appears to be guarded and irritable. Otherwise, the patient is in no acute distress. OBJECTIVE: VITAL SIGNS: Temperature of 97.7, heart rate of 60, respirations of 18, and blood pressure of 133/57. HEENT: Head is atraumatic and normocephalic. Eyes: Bilateral conjunctivae are clear. Bilateral pupils are equally round and reactive. NECK: Supple. No JVD. CARDIOVASCULAR: S1 and S2 without murmur. PULMONARY: Clear to auscultation. GASTROINTESTINAL: Soft and nontender without guarding. Positive bowel sounds. MUSCULOSKELETAL: No clubbing. No cyanosis noted. ASSESSMENT: 1. Psychosis. 2. Neuropathy. 3. Diabetes. 4. Hypothyroidism. 5. Osteoarthritis. PLAN: We will keep the patient in inpatient psychiatric unit. We will follow up with a psychiatrist to monitor the patient's condition and behavior. Treatment plans were discussed with the patient's nurse. Treatment plans were discussed with Dr. Luna. JOB# [id number]
[2018-02-22] MEDS: Levothyroxine 0.1 Mg Tab PO SCH (06:54)
[2018-02-22] MEDS: Haldol Oral Sol.(concentrate) 10 mg/5 mL Udc PO SCH ×3 (09:03→16:12)
[2018-02-22] MEDS: Multivitamin w/ Minerals Tab PO SCH ×2 (09:04→09:09)
--- NOTE | 2018-02-22 13:29 | General Progress Note ---
Subjective - Review of Systems Events since last encounter: patient irritable in no distress Subjective: pt. has left lower leg cellulitis, L left pain Objective - Results Recent Labs: Laboratory Last Values POC Glucose 69 MG/DL (70 - 105) L 02/12/18 12:07 - Physical Exam Vitals and I&O: Vital Signs Temp 97.7 F 02/20/18 15:16 Pulse 60 02/20/18 15:16 Resp 18 02/20/18 15:16 BP 123/57 02/20/18 15:16 Pulse Ox 98 02/20/18 15:16 Intake & Output 02/21/18 02/22/18 02/22/18 18:59 06:59 18:59 Intake Total 900 Balance 900 Intake: Oral 900 Other: # Voids 3 Active Medications: Current Medications Acetaminophen (Tylenol) 650 mg PO Q4HR PRN PRN Reason: Mild Pain / Temp above 100 Stop: 04/12/18 12:30 Al Hydrox/Mg Hydrox/Simethicone (Maalox) 30 ml PO Q4HR PRN PRN Reason: GI DISTRESS Stop: 04/12/18 12:30 Docusate Sodium (Colace) 100 mg PO DAILY [facility] Stop: 04/13/18 08:59 Last Admin: 02/22/18 09:09 Dose: Not Given Gabapentin (Neurontin) 100 mg PO TID [facility] Stop: 04/12/18 13:59 Last Admin: 02/22/18 13:17 Dose: Not Given Haloperidol Lactate (Haldol Concentrate 10mg/5ml Susp) 2 mg PO BID [facility]; Protocol Stop: 04/13/18 08:59 Last Admin: 02/22/18 09:09 Dose: Not Given Levothyroxine Sodium (Synthroid) 0.1 mg PO QDAC [facility] Stop: 04/13/18 07:29 Last Admin: 02/22/18 06:54 Dose: Not Given Magnesium Hydroxide (Milk Of Magnesia) 30 ml PO DAILY PRN PRN Reason: Constipation Stop: 04/12/18 12:30 Metformin HCl (Glucophage) 500 mg PO BID [facility] Stop: 04/12/18 16:59 Last Admin: 02/22/18 09:09 Dose: Not Given Risperidone (Risperdal) 2 mg PO BID [facility]; Protocol Stop: 04/19/18 08:59 Last Admin: 02/22/18 09:09 Dose: Not Given General: Alert, No acute distress HEENT: PERRLA, EOMI Neck: Supple Cardiovascular: Normal S1, Normal S2 Lungs: Clear to auscultation Abdomen: Bowel sounds Extremities: Other (left lower extremity erythema and edema) - Procedures Procedures: Procedures Procedure Code Date GROUP PSYCHOTHERAPY 71565 10/17/15 GROUP PSYCHOTHERAPY GZHZZZZ 10/17/15 Assessment/Plan - Problem List Patient Problems: All Active Problems Diabetes (Acute) E11.9 Hypothyroid (Acute) E03.9 Neuropathy (Acute) G62.9 Osteoarthritis (Acute) M19.90 Psychosis (Acute) F29 - Assessment Assessment: LEFT leg cellulitis bipolar disorder hypothyroidism HTN - Plan Plan: Abxs pain management continue current orders continue present management Nutritional Asmnt/Malnutr-PDOC - Dietary Evaluation Malnutrition Findings (Please click <Entered> for more info): Nutritional Asmnt/Malnutrition Start: 02/14/18 10: 39 Text: Status: Complete Freq: Protocol: Document 02/14/18 10:39 DALTON (Rec: 02/14/18 10:43 DALTON NAMITA FN) Nutritional Asmnt/Malnutrition Patient General Information Diagnosis Psychosis Pertinent Medical Hx/Surgical Hx hypothyroidism, bipolar disorder, DM, polyneuropathy, HTN, hyperlipidemia Subjective Information Pt sitting up in rec room at time of visit, staed good appetite Current Diet Order/ Nutrition Support Vegetarian Regular diet Pertinent Medications none noted Pertinent Labs 02/10: Na 137, K 3.5, Cl 104, CO2 28.5, BUN 18, Cr 0.5, glucose 84, Ca 9.3 Nutritional Hx/Data Height 1.55 m Height (Calculated Centimeters) 154.9 Current Weight (lbs) 46.72 kg Weight (Calculated Kilograms) 46.7 Weight (Calculated Grams) 05088.0 Body Mass Index (BMI) 19.4 Weight Status Approriate GI Symptoms GI Symptoms None Last BM none noted Cultural/Ethnic/Mormon Belief Vegetarian Usual diet at home Vegetarian Skin Integrity/Comment: Yajaira score 19 Estimated Nutritional Goals BEE in Kcals: Using Current wt Calories/Kcals/Kg 25-30kcals/kg Kcals Calculated 1175-1410kcals/day Protein: Using Current wt Protein g/k-1.1g/kg Protein Calculated 47-52g/day Fluid: ml 1175-1410ml/day (1ml/kcal) Nutritional Problem 1. Problem Problem No nutrition diagnosis at this time Intervention/Recommendation Comments Recommend continuing Vegetarian Regular diet Expected Outcomes/Goals Expected Outcomes/Goals PO intake >75% of meals
--- NOTE | 2018-02-23 00:46 | Progress Notes ---
DATE: 02/22/2018 SUBJECTIVE: Chart reviewed and the patient interviewed. Also, discussed the patient's condition with the staff and reviewed records and labs. The patient is still confused and forgetful. The patient also still has difficulty with her sleep at night. She also is still wandering around the unit on her wheelchair. The patient today was telling me about her leg that "have metal in different areas." She also is still restless and she still needs redirections because of her irritability and anger. The patient still does not want to take any psychotropic medications. We will continue monitoring her behavior and we will work on discharge plans and placement issue. JOB# [id number]
[2018-02-23] MEDS: Levothyroxine 0.1 Mg Tab PO SCH (06:33)
[2018-02-23] MEDS: Haldol Oral Sol.(concentrate) 10 mg/5 mL Udc PO SCH ×2 (08:23→16:19)
[2018-02-23] MEDS: Multivitamin w/ Minerals Tab PO SCH (08:23)
--- NOTE | 2018-02-23 16:06 | General Progress Note ---
Subjective - Review of Systems Events since last encounter: confused in no distress Subjective: pt. has left lower leg cellulitis, L left pain Objective - Results Recent Labs: Laboratory Last Values POC Glucose 69 MG/DL (70 - 105) L 02/12/18 12:07 - Physical Exam Vitals and I&O: Vital Signs Temp 0 F 02/23/18 06:29 Pulse 83 02/22/18 16:17 Resp 18 02/22/18 16:17 BP 112/76 02/22/18 16:17 Pulse Ox 97 02/22/18 16:17 Intake & Output 02/22/18 02/23/18 02/23/18 18:59 06:59 18:59 Intake Total 1200 180 Balance 1200 180 Intake: Oral 1200 180 Other: # Voids 3 2 # Bowel Movements 0 Active Medications: Current Medications Acetaminophen (Tylenol) 650 mg PO Q4HR PRN PRN Reason: Mild Pain / Temp above 100 Stop: 04/12/18 12:30 Al Hydrox/Mg Hydrox/Simethicone (Maalox) 30 ml PO Q4HR PRN PRN Reason: GI DISTRESS Stop: 04/12/18 12:30 Docusate Sodium (Colace) 100 mg PO DAILY [facility] Stop: 04/13/18 08:59 Last Admin: 02/23/18 08:22 Dose: Not Given Gabapentin (Neurontin) 100 mg PO TID [facility] Stop: 04/12/18 13:59 Last Admin: 02/23/18 13:36 Dose: Not Given Haloperidol Lactate (Haldol Concentrate 10mg/5ml Susp) 2 mg PO BID [facility]; Protocol Stop: 04/13/18 08:59 Last Admin: 02/23/18 08:23 Dose: Not Given Levothyroxine Sodium (Synthroid) 0.1 mg PO QDAC [facility] Stop: 04/13/18 07:29 Last Admin: 02/23/18 06:33 Dose: Not Given Magnesium Hydroxide (Milk Of Magnesia) 30 ml PO DAILY PRN PRN Reason: Constipation Stop: 04/12/18 12:30 Metformin HCl (Glucophage) 500 mg PO BID [facility] Stop: 04/12/18 16:59 Last Admin: 02/23/18 08:23 Dose: Not Given Risperidone (Risperdal) 2 mg PO BID [facility]; Protocol Stop: 04/19/18 08:59 Last Admin: 02/23/18 08:23 Dose: Not Given General: Alert, No acute distress HEENT: PERRLA, EOMI Neck: Supple Cardiovascular: Normal S1, Normal S2 Lungs: Clear to auscultation Abdomen: Bowel sounds Extremities: Other (left lower extremity erythema and edema) - Procedures Procedures: Procedures Procedure Code Date GROUP PSYCHOTHERAPY 39789 10/17/15 GROUP PSYCHOTHERAPY GZHZZZZ 10/17/15 Assessment/Plan - Problem List Patient Problems: All Active Problems Diabetes (Acute) E11.9 Hypothyroid (Acute) E03.9 Neuropathy (Acute) G62.9 Osteoarthritis (Acute) M19.90 Psychosis (Acute) F29 - Assessment Assessment: LEFT leg cellulitis bipolar disorder hypothyroidism HTN - Plan Plan: Abxs pain management continue current orders continue present management Nutritional Asmnt/Malnutr-PDOC - Dietary Evaluation Malnutrition Findings (Please click <Entered> for more info): Nutritional Asmnt/Malnutrition Start: 02/14/18 10: 39 Text: Status: Complete Freq: Protocol: Document 02/14/18 10:39 DALTON (Rec: 02/14/18 10:43 DALTON NAMITA FN) Nutritional Asmnt/Malnutrition Patient General Information Diagnosis Psychosis Pertinent Medical Hx/Surgical Hx hypothyroidism, bipolar disorder, DM, polyneuropathy, HTN, hyperlipidemia Subjective Information Pt sitting up in rec room at time of visit, staed good appetite Current Diet Order/ Nutrition Support Vegetarian Regular diet Pertinent Medications none noted Pertinent Labs 02/10: Na 137, K 3.5, Cl 104, CO2 28.5, BUN 18, Cr 0.5, glucose 84, Ca 9.3 Nutritional Hx/Data Height 1.55 m Height (Calculated Centimeters) 154.9 Current Weight (lbs) 46.72 kg Weight (Calculated Kilograms) 46.7 Weight (Calculated Grams) 24639.0 Body Mass Index (BMI) 19.4 Weight Status Approriate GI Symptoms GI Symptoms None Last BM none noted Cultural/Ethnic/Spiritism Belief Vegetarian Usual diet at home Vegetarian Skin Integrity/Comment: Yajaira score 19 Estimated Nutritional Goals BEE in Kcals: Using Current wt Calories/Kcals/Kg 25-30kcals/kg Kcals Calculated 1175-1410kcals/day Protein: Using Current wt Protein g/k-1.1g/kg Protein Calculated 47-52g/day Fluid: ml 1175-1410ml/day (1ml/kcal) Nutritional Problem 1. Problem Problem No nutrition diagnosis at this time Intervention/Recommendation Comments Recommend continuing Vegetarian Regular diet Expected Outcomes/Goals Expected Outcomes/Goals PO intake >75% of meals
--- NOTE | 2018-02-23 20:08 | Progress Notes ---
DATE: 02/23/2018 SUBJECTIVE: Chart reviewed and the patient interviewed. Also discussed the patient's condition with the staff and reviewed records and labs. The patient is still confused and she is still forgetful. The patient also is refusing some of her medications at times. The patient also is hypertalkative and at times demanding. Otherwise, the patient still does not want to take medications and refused to take medications, but she is cooperative with the physical therapy. ASSESSMENT: The patient is still agitated. TREATMENT PLAN: Continue monitoring her behavior and her condition closely. Also, continue to work on discharge plans and placement issue. JOB# [id number]
[2018-02-24] MEDS: Levothyroxine 0.1 Mg Tab PO SCH (06:33)
[2018-02-24] MEDS: Haldol Oral Sol.(concentrate) 10 mg/5 mL Udc PO SCH (09:16)
[2018-02-24] MEDS: Multivitamin w/ Minerals Tab PO SCH (09:17)
--- NOTE | 2018-02-25 01:28 | Progress Notes ---
DATE: SUBJECTIVE: Chart reviewed and the patient interviewed. Also discussed the patient's condition with the staff and reviewed records and labs. The patient is still hypertalkative and she is still in irritable mood. She also is still intrusive to others. The patient also is forgetful and she is confused. At times also she is refusing to take medications and she is still argumentative about medications. Otherwise, the patient is talking about physical therapy and is still preoccupied with physical therapy. ASSESSMENT: The patient seems to be slightly less irritable. TREATMENT PLAN: Continue to monitor her behavior closely. Also discussed with case monitorathlete manager issue and discharge plans and continue to work on her discharge and placement. JOB# [id number]
[2018-02-25] MEDS ORDERED: Haloperidol Lactate 5 mg/mL 1mL Vial IM ONE (06:40)
[2018-02-25] MEDS: Levothyroxine 0.1 Mg Tab PO SCH (07:05)
[2018-02-25] MEDS ORDERED: OLANZapine 5 mg Oral Disintegrating Tab PO SCH (09:00)
[2018-02-25] MEDS: Haldol Oral Sol.(concentrate) 10 mg/5 mL Udc PO SCH (12:36)
[2018-02-25] MEDS: Multivitamin w/ Minerals Tab PO SCH (12:37)
--- NOTE | 2018-02-25 15:23 | General Progress Note ---
Subjective - Review of Systems Events since last encounter: irritable at times but better in no distress Subjective: pt. has left lower leg cellulitis, L left pain Objective - Results Recent Labs: Laboratory Last Values POC Glucose 69 MG/DL (70 - 105) L 02/12/18 12:07 - Physical Exam Vitals and I&O: Vital Signs Temp 97.6 F 02/25/18 14:00 Pulse 59 02/25/18 14:00 Resp 20 02/25/18 14:00 BP 128/53 02/25/18 14:00 Pulse Ox 96 02/25/18 14:00 Intake & Output 02/24/18 02/25/18 02/25/18 18:59 06:59 18:59 Intake Total 1200 120 Balance 1200 120 Intake: Oral 1200 120 Other: # Voids 3 2 # Bowel Movements 0 Active Medications: Current Medications Acetaminophen (Tylenol) 650 mg PO Q4HR PRN PRN Reason: Mild Pain / Temp above 100 Stop: 04/12/18 12:30 Al Hydrox/Mg Hydrox/Simethicone (Maalox) 30 ml PO Q4HR PRN PRN Reason: GI DISTRESS Stop: 04/12/18 12:30 Docusate Sodium (Colace) 100 mg PO DAILY [facility] Stop: 04/13/18 08:59 Last Admin: 02/25/18 12:37 Dose: Not Given Gabapentin (Neurontin) 100 mg PO TID [facility] Stop: 04/12/18 13:59 Last Admin: 02/24/18 21:01 Dose: Not Given Haloperidol Lactate (Haldol Concentrate 10mg/5ml Susp) 2 mg PO BID [facility]; Protocol Stop: 04/13/18 08:59 Last Admin: 02/25/18 12:36 Dose: Not Given Levothyroxine Sodium (Synthroid) 0.1 mg PO QDAC [facility] Stop: 04/13/18 07:29 Last Admin: 02/25/18 07:05 Dose: Not Given Magnesium Hydroxide (Milk Of Magnesia) 30 ml PO DAILY PRN PRN Reason: Constipation Stop: 04/12/18 12:30 Metformin HCl (Glucophage) 500 mg PO BID [facility] Stop: 04/12/18 16:59 Last Admin: 02/25/18 12:36 Dose: Not Given Olanzapine (Zyprexa Zydis) 5 mg PO BID [facility]; Protocol Stop: 04/26/18 08:59 Last Admin: 02/25/18 12:38 Dose: Not Given General: Alert, No acute distress HEENT: PERRLA, EOMI Neck: Supple Cardiovascular: Normal S1, Normal S2 Lungs: Clear to auscultation Abdomen: Bowel sounds Extremities: Other (left lower extremity erythema and edema) - Procedures Procedures: Procedures Procedure Code Date GROUP PSYCHOTHERAPY 64286 10/17/15 GROUP PSYCHOTHERAPY GZHZZZZ 10/17/15 Assessment/Plan - Problem List Patient Problems: All Active Problems Diabetes (Acute) E11.9 Hypothyroid (Acute) E03.9 Neuropathy (Acute) G62.9 Osteoarthritis (Acute) M19.90 Psychosis (Acute) F29 - Assessment Assessment: LEFT leg cellulitis bipolar disorder hypothyroidism HTN - Plan Plan: Abxs pain management continue current orders continue present management Nutritional Asmnt/Malnutr-PDOC - Dietary Evaluation Malnutrition Findings (Please click <Entered> for more info): Nutritional Asmnt/Malnutrition Start: 02/14/18 10: 39 Text: Status: Complete Freq: Protocol: Document 02/14/18 10:39 DALTON (Rec: 02/14/18 10:43 DALTON BREAUX- FNS1) Nutritional Asmnt/Malnutrition Patient General Information Diagnosis Psychosis Pertinent Medical Hx/Surgical Hx hypothyroidism, bipolar disorder, DM, polyneuropathy, HTN, hyperlipidemia Subjective Information Pt sitting up in rec room at time of visit, staed good appetite Current Diet Order/ Nutrition Support Vegetarian Regular diet Pertinent Medications none noted Pertinent Labs 02/10: Na 137, K 3.5, Cl 104, CO2 28.5, BUN 18, Cr 0.5, glucose 84, Ca 9.3 Nutritional Hx/Data Height 1.55 m Height (Calculated Centimeters) 154.9 Current Weight (lbs) 46.72 kg Weight (Calculated Kilograms) 46.7 Weight (Calculated Grams) 55075.0 Body Mass Index (BMI) 19.4 Weight Status Approriate GI Symptoms GI Symptoms None Last BM none noted Cultural/Ethnic/Faith Belief Vegetarian Usual diet at home Vegetarian Skin Integrity/Comment: Yajaira score 19 Estimated Nutritional Goals BEE in Kcals: Using Current wt Calories/Kcals/Kg 25-30kcals/kg Kcals Calculated 1175-1410kcals/day Protein: Using Current wt Protein g/k-1.1g/kg Protein Calculated 47-52g/day Fluid: ml 1175-1410ml/day (1ml/kcal) Nutritional Problem 1. Problem Problem No nutrition diagnosis at this time Intervention/Recommendation Comments Recommend continuing Vegetarian Regular diet Expected Outcomes/Goals Expected Outcomes/Goals PO intake >75% of meals
--- NOTE | 2018-02-25 17:49 | Progress Notes ---
DATE: 02/25/2018 SUBJECTIVE: Chart reviewed and the patient interviewed. Also, discussed the patient's condition with the staff. The staff reports that the patient has been very paranoid and delusional. She has been thinking that her name is not Herminia and that she has different name and they mixed up her name in the computer. She also has been arguing with the staff about where her room at. The patient also was extremely argumentative and agitated with the staff to the point that she has to be placed on seclusion room. She also is still restless and she is still angry. The patient also is still refusing to take any psychotropic medications. ASSESSMENT: The patient is still agitated and psychotic. TREATMENT PLAN: Continue to monitor her behavior and her condition. Also, we will change her Risperdal to Zyprexa. Hopefully, the patient will take it. Also, continue to monitor her aggressive behavior and her agitation and continue to follow up. JOB# [id number]
[2018-02-25] MEDS ORDERED: AMMONIA INH ONE ×2 (18:13)
== END 2018-02-25 18:25 | disposition short-term general hospital (02) | DRG 885 ==
LOC: GERO 11:44
PROVIDERS: ADMIT Psychiatry & Neurology Psychiatry; ATTEND Psychiatry & Neurology Psychiatry
DX: F31.9 Bipolar disorder, unspecified (principal); L03.116 Cellulitis of left lower limb; I10 Essential (primary) hypertension; E03.9 Hypothyroidism, unspecified; Z88.8 Allergy status to other drugs, medicaments and biological substances; E11.42 Type 2 diabetes mellitus with diabetic polyneuropathy; M19.90 Unspecified osteoarthritis, unspecified site
CPT/HCPCS: 82948-90; 97530; G0410; J1200; J1630; J2060; J7042; X3904; Z7610

== ENCOUNTER 2018-02-25 18:35 | Inpatient (IN) | payer MEDICARE, MEDICAID ==
[2018-02-25] MEDS: D5-0.45NS 1,000 ML IV SCH (19:30)
[2018-02-25 20:36] LABS: BASOPHILE ABSOLUTE 0.1 Th/cumm (0-0.2); EOSINOPHILE ABSOLUTE 0.2 Th/cmm (0.1-0.4); LYMPHOCYTE ABSOLUTE 0.9 Th/cmm (1.5-3.0); MONOCYTE ABSOLUTE 0.4 Th/cmm (0.3-1.0); NEUTROPHILE ABSOLUTE 2.3 Th/cmm (1.8-8.0)
[2018-02-25 20:59] LABS: ALB/GLOB RATIO 1.2 (1.0-1.8); ALBUMIN 3.7 gm/dL (3.7-5.3); ALKALINE PHOSPHATASE 49 U/L (34-104); ANION GAP 9.6 (7.0-16.0); BILIRUBIN,TOTAL 0.4 mg/dL (0.3-1.0); BUN - UREA NITROGEN 21 mg/dL (7-25); CALCIUM SERUM 9.4 mg/dL (8.6-10.3); CARBON DIOXIDE 28.1 mEq/L (21.0-31.0); CHLORIDE 103 mEq/L (98-107); CREATININE - SERUM 0.5 mg/dL (0.6-1.2); GLUCOSE 99 mg/dL (70-105); POTASSIUM SERUM 3.7 mEq/L (3.5-5.1); SGOT 24 U/L (13-39); SGPT/ALT 12 U/L (7-52); SODIUM SERUM 137 mEq/L (136-145); TOTAL PROTEIN,SERUM 6.8 gm/dL (6.0-8.3)
[2018-02-25 21:25] LABS: % BASOPHILS 2.3 % (0.0-2.0); % EOSINOPHILS 4.6 % (0.0-5.0); % LYMPHOCYTES 24.2 % (20.0-50.0); % MONOCYTES 10.5 % (2.0-10.0); % NEUTROPHILS 58.4 % (40.0-80.0); HEMATOCRIT 34.6 % (41.0-60); HEMOGLOBIN 11.8 gm/dL (12-16); MEAN CORPUSCULAR HGB CONC 34.1 pg (28.0-36.0); MEAN PLATELET VOLUME 8.4 fl; PLATELET COUNT 214 Th/cmm (150-400); RED BLOOD COUNT 3.93 Mil/cmm (3.80-5.20); RED CELL DISTRIBUTION WIDTH 13.4 % (11.5-20.0)
[2018-02-25 21:27] LABS: WHITE BLOOD COUNT 3.9 Th/cmm (4.8-10.8)
[2018-02-25] MEDS ORDERED: Pneumococcal Vaccine 0.5 mL Vial IM ONE (23:04)
[2018-02-26 05:40] LABS: CORRECTED WBC 7.1 Th/cmm (4.8-10.8); HEMATOCRIT 39.8 % (41.0-60); RED BLOOD COUNT 4.57 Mil/cmm (3.80-5.20); WHITE BLOOD COUNT 7.1 Th/cmm (4.8-10.8)
[2018-02-26 05:41] LABS: BUN - UREA NITROGEN 16 mg/dL (7-25); CALCIUM SERUM 9.6 mg/dL (8.6-10.3); CARBON DIOXIDE 26.2 mEq/L (21.0-31.0); CHLORIDE 104 mEq/L (98-107); CREATININE - SERUM 0.5 mg/dL (0.6-1.2); GLUCOSE 81 mg/dL (70-105); MEAN CORPUSCULAR HEMOGLOBIN 28.4 pg (27.0-31.0); MEAN CORPUSCULAR HGB CONC 32.7 pg (28.0-36.0); MEAN PLATELET VOLUME 8.8 fl; PLATELET COUNT 185 Th/cmm (150-400); POTASSIUM SERUM 4.2 mEq/L (3.5-5.1); RED CELL DISTRIBUTION WIDTH 13.7 % (11.5-20.0); SODIUM SERUM 137 mEq/L (136-145)
[2018-02-26 07:10] LABS: ATYPICAL LYMPH 3 %; BAND NEUTROPHILE 0 % (0-10); BASOPHIL 0 % (0-3); EOSINOPHIL 8 % (0-5); LYMPHOCYTE 20 % (20-50); MONOCYTE 6 % (2-10); NEUTROPHILS 63 % (40-80)
[2018-02-26] MEDS ORDERED: Atropine Sulfate 1 mg/mL 1 mL Vial IVP PRN (07:45)
[2018-02-26] MEDS: D5-0.45NS 1,000 ML IV SCH (08:45)
--- NOTE | 2018-02-26 08:49 | Diagnostic Imaging Report ---
Portable chest x-ray History: Shortness of breath Allowing for portable technique the heart size is normal. No focal pulmonary parenchymal processes. No hilar or mediastinal abnormalities. Impression: No acute abnormalities.
[2018-02-26] MEDS ORDERED: Magnesium Hydroxide (MOM) 30 mL UDC PO PRN (13:29)
[2018-02-26] MEDS ORDERED: Maalox 30 mL Cup PO PRN (13:29)
--- NOTE | 2018-02-26 20:38 | Consultation ---
DATE OF CONSULTATION: 02/26/[address] Luna. HISTORY AND PHYSICAL: This 72-year-old female patient who was admitted for major depression to [facility]. The patient apparently became altered level, lethargic, not responding at this time. The patient is having severe bradycardia and the patient was transferred to ICU and cardiac consult is requested. PAST MEDICAL HISTORY: Left leg swelling, suspect lymphedema, hypertension, hypothyroid and dementia. FAMILY HISTORY: Unremarkable. SOCIAL HISTORY: No history of smoking, alcohol abuse. ALLERGIES: No known allergies. PHYSICAL EXAMINATION: VITAL SIGNS: Blood pressure 120/80, pulse 40, respirations 28. HEAD: Normocephalic. No lumps or bumps. EYES: Pupils equal, reactive to light. Fundi show AV nicking, sclerae white, conjunctivae pink. NECK: Carotid 2+. Normal upstroke. JVD flat. Thyroid not palpable. Lymph nodes not palpable. CHEST: Shows increased AP diameter. No kyphosis, scoliosis. LUNGS: Bilateral bronchovesicular breath sounds. HEART: PMI fifth intercostal space with lateral to midclavicular line. S1, S2. No S3, S4, sinus bradycardia, soft systolic murmur. ABDOMEN: Soft. Liver, spleen not palpable. No organomegaly. Bowel sounds active. NEUROLOGIC: Unremarkable. EXTREMITIES: The patient probably has left lymphedema. CLINICAL IMPRESSION: Left leg cellulitis, left leg lymphedema, hypertension, severe bradycardia, altered level secondary to overmedication and Geropsych. PLAN: At the present time, we will stop all the medication, get echocardiogram ____ for bradycardia if needed. JOB# [id number]
[2018-02-27] MEDS ORDERED: Levothyroxine 0.1 Mg Tab PO SCH (07:30)
[2018-02-27] MEDS: Levothyroxine 0.112 Mg Tab PO SCH (07:58)
--- NOTE | 2018-02-27 08:28 | Progress Notes ---
DATE: 02/27/2018 SUBJECTIVE: Chart reviewed and the patient interviewed. Also discussed the patient's condition with the staff and reviewed the records and labs. The patient is still anxious and is still in irritable mood, but no major behavioral problems. The patient also is easily agitated and easily irritable. The patient also is interacting with anger and refusing IVs and pulled her by IV out yesterday and is refusing to take any medications. The patient said that "I am not sick and nothing wrong with me." She is still argumentative. The patient said that she does not want to take any psych medications because she does not need it and she has no psych illness and she does not need any medications for psychosis. I think she says nothing wrong with her. At this time, I will stop Risperdal. Also, the patient can be discharged back to her facility if medically stable. At this time, no major behavioral problems that required to be in Inpatient Psych Unit. JOB# [id number]
[2018-02-27] MEDS: Multivitamin w/ Minerals Tab PO SCH (10:07)
[2018-02-28] MEDS: Levothyroxine 0.112 Mg Tab PO SCH ×2 (07:31→07:47)
[2018-02-28] MEDS: Multivitamin w/ Minerals Tab PO SCH (08:49)
--- NOTE | 2018-03-01 05:22 | History & Physical ---
ADMIT DATE: 02/28/2018 CHIEF COMPLAINT: Altered level of consciousness. HISTORY OF PRESENT ILLNESS: This is a 72-year-old female who was originally admitted in [facility] due to depression with psychosis and apparently the patient became altered and lethargic with severe bradycardia, so the patient was transferred to Intensive Care Unit. REVIEW OF SYSTEMS: GENERAL: This is a 72-year-old female that appears as stated. Denies fever. Denies chills. HEAD: Denies headache. Denies dizziness. EYES: Denies eye pain. Denies blurring of vision. NECK: Denies neck pain. Denies nuchal rigidity. CHEST: Denies chest pain. Denies palpitation. PULMONARY: Denies coughing. Denies shortness of breath. GASTROINTESTINAL: Denies abdominal pain. Denies stomach pain. Denies diarrhea. Denies constipation. MUSCULOSKELETAL: Denies joint pain. Denies muscle pain. SOCIAL HISTORY: The patient lives in a assisted facility prior to being admitted to [facility]. FAMILY HISTORY: Unremarkable. SURGICAL HISTORY: Unremarkable. PAST MEDICAL HISTORY: Includes osteoarthritis, hypothyroidism. PSYCHIATRIC HISTORY: Includes depression with psychosis. PHYSICAL EXAMINATION: VITAL SIGNS: Temperature 97.5, heart rate of 68, blood pressure 131/58, respiration 20, 100% on room air. HEENT: Head is atraumatic, normocephalic. Eyes: Bilateral conjunctivae are clear. Bilateral pupils are equally round and reactive. NECK: Supple. No JVD. CARDIOVASCULAR: S1 and S2, without murmur. PULMONARY: Clear to auscultation. GASTROINTESTINAL: Soft and nontender without guarding. Positive bowel sounds. MUSCULOSKELETAL: No clubbing, no cyanosis noted. ASSESSMENT: 1. Bradycardia. 2. Altered level of consciousness. 3. Hypertension. 4. Depression with psychosis. 5. Osteoarthritis. PLAN: We will keep the patient to medical floor. We will follow up with a dispatcher ship pilot and a psychiatrist to monitor the patient's condition and behavior. Treatment plans were discussed with the patient's nurse. Treatment plans were discussed with Dr. Luna. We are also going to do medication reconciliation accordingly. JOB# [id number]
[2018-03-01] MEDS: Levothyroxine 0.112 Mg Tab PO SCH (07:37)
[2018-03-01] MEDS ORDERED: Haloperidol Lactate 5 mg/mL 1mL Vial IM ONE (08:33)
[2018-03-01] MEDS: Multivitamin w/ Minerals Tab PO SCH (08:59)
--- NOTE | 2018-03-01 10:27 | General Progress Note ---
Subjective - Review of Systems Events since last encounter: patient lethargic no signs of pain Objective - Results Result Diagrams: 02/26/18 04:50 02/26/18 04:50 Recent Labs: Laboratory Last Values WBC 7.1 Th/cmm (4.8-10.8) D 02/26/18 04:50 Corrected WBC (auto) 7.1 Th/cmm (4.8-10.8) 02/26/18 04:50 RBC 4.57 Mil/cmm (3.80-5.20) 02/26/18 04:50 Hgb 13.0 gm/dL (12-16) 02/26/18 04:50 Hct 39.8 % (41.0-60) L D 02/26/18 04:50 MCV 87.0 fl (81-100) 02/26/18 04:50 MCH 28.4 pg (27.0-31.0) 02/26/18 04:50 MCHC Differential 32.7 pg (28.0-36.0) 02/26/18 04:50 RDW 13.7 % (11.5-20.0) 02/26/18 04:50 Plt Count 185 Th/cmm (150-400) 02/26/18 04:50 MPV 8.8 fl 02/26/18 04:50 Add Manual Diff YES 02/26/18 04:50 Neutrophils % 58.4 % (40.0-80.0) 02/25/18 20:10 Band Neutrophils % 0 % (0-10) 02/26/18 04:50 Lymphocytes % 24.2 % (20.0-50.0) 02/25/18 20:10 Monocytes % 10.5 % (2.0-10.0) H 02/25/18 20:10 Eosinophils % 4.6 % (0.0-5.0) 02/25/18 20:10 Basophils % 2.3 % (0.0-2.0) H 02/25/18 20:10 Neutrophils (Manual) 63 % (40-80) 02/26/18 04:50 Lymphocytes 20 % (20-50) 02/26/18 04:50 Monocytes 6 % (2-10) 02/26/18 04:50 Eosinophils 8 % (0-5) H 02/26/18 04:50 Basophils 0 % (0-3) 02/26/18 04:50 Atypical Lymphocytes 3 % 02/26/18 04:50 Sodium 137 mEq/L (136-145) 02/26/18 04:50 Potassium 4.2 mEq/L (3.5-5.1) 02/26/18 04:50 Chloride 104 mEq/L (98-107) 02/26/18 04:50 Carbon Dioxide 26.2 mEq/L (21.0-31.0) 02/26/18 04:50 Anion Gap 11.0 (7.0-16.0) 02/26/18 04:50 BUN 16 mg/dL (7-25) 02/26/18 04:50 Creatinine 0.5 mg/dL (0.6-1.2) L 02/26/18 04:50 Est GFR ( Amer) TNP 02/26/18 04:50 Est GFR (Non-Af Amer) TNP 02/26/18 04:50 BUN/Creatinine Ratio 32.0 02/26/18 04:50 Glucose 81 mg/dL (70-105) 02/26/18 04:50 POC Glucose 65 MG/DL (70 - 105) L 02/26/18 07:37 Calcium 9.6 mg/dL (8.6-10.3) 02/26/18 04:50 Total Bilirubin 0.4 mg/dL (0.3-1.0) 02/25/18 20:10 AST 24 U/L (13-39) 02/25/18 20:10 ALT 12 U/L (7-52) 02/25/18 20:10 Alkaline Phosphatase 49 U/L (34-104) 02/25/18 20:10 Troponin I < 0.01 ng/mL (0.01-0.05) L 02/25/18 20:10 Total Protein 6.8 gm/dL (6.0-8.3) 02/25/18 20:10 Albumin 3.7 gm/dL (3.7-5.3) 02/25/18 20:10 Globulin 3.1 gm/dL 02/25/18 20:10 Albumin/Globulin Ratio 1.2 (1.0-1.8) 02/25/18 20:10 TSH 15.05 uIU/ml (0.34-5.60) H 02/25/18 20:17 - Physical Exam Vitals and I&O: Vital Signs Temp 97.4 F 02/28/18 12:02 Pulse 65 02/28/18 12:02 Resp 18 02/28/18 12:02 BP 141/63 02/28/18 12:02 Pulse Ox 100 02/28/18 12:02 Intake & Output 02/28/18 03/01/18 03/01/18 18:59 06:59 18:59 Intake Total 2250 Balance 2250 Weight (lbs) 55.338 kg 55.338 kg Intake: Intake, IV Amount 1000 D5-0.45NS 1,000 ml @ 75 1000 mls/hr IV .[id number] [facility] Rx #:[id number] Oral 1250 Other: # Voids 5 3 # Bowel Movements 1 Stool Characteristics Soft Weight Source Bedscale Bedscale Active Medications: Current Medications Acetaminophen (Tylenol) 650 mg PO Q4HR PRN PRN Reason: Mild Pain / Temp above 100 Stop: 04/27/18 13:28 Al Hydrox/Mg Hydrox/Simethicone (Maalox) 30 ml PO Q4HR PRN PRN Reason: GI DISTRESS Stop: 04/27/18 13:28 Atropine Sulfate (Atropine) 1 mg IVP Q4H PRN PRN Reason: HR < 45 Stop: 04/27/18 07:36 Diphenhydramine HCl (Benadryl 50 Mg/Ml) 25 mg IM NOW PRN PRN Reason: Agitation Stop: 04/30/18 08:34 Last Admin: 03/01/18 09:25 Dose: 25 mg Docusate Sodium (Colace) 100 mg PO DAILY [facility] Stop: 04/28/18 08:59 Last Admin: 03/01/18 08:59 Dose: Not Given Gabapentin (Neurontin) 100 mg PO TID [facility] Stop: 04/27/18 13:59 Last Admin: 03/01/18 08:59 Dose: Not Given Dextrose/Sodium Chloride (D5-0.45ns) 1,000 mls @ 75 mls/hr IV .[id number] [facility] Stop: 04/26/18 20:02 Last Infusion: 02/28/18 18:00 Dose: Infused Levothyroxine Sodium (Synthroid) 0.112 mg PO QDAC [facility] Stop: 04/28/18 07:29 Last Admin: 03/01/18 07:37 Dose: Not Given Lorazepam (Ativan) 1 mg IV Q4HR PRN; Protocol PRN Reason: Agitation Stop: 04/27/18 15:08 Magnesium Hydroxide (Milk Of Magnesia) 30 ml PO DAILY PRN PRN Reason: Constipation Stop: 04/27/18 13:28 Metformin HCl (Glucophage) 500 mg PO BID [facility] Stop: 04/27/18 16:59 Last Admin: 03/01/18 08:59 Dose: Not Given - Procedures Procedures: Procedures Procedure Code Date GROUP PSYCHOTHERAPY 76709 10/17/15 GROUP PSYCHOTHERAPY GZHZZZZ 10/17/15 Nutritional Asmnt/Malnutr-PDOC - Dietary Evaluation Malnutrition Findings (Please click <Entered> for more info): Nutritional Asmnt/Malnutrition Start: 02/28/18 11: 47 Text: Status: Complete Freq: Protocol: Document 02/28/18 11:48 MMBIJAN (Rec: 02/28/18 11:52 MMULAMALIA BREAUX FN) Nutritional Asmnt/Malnutrition Patient General Information Nutritional Screening Moderate Risk Diagnosis ALOC Pertinent Medical Hx/Surgical Hx hypertension, hypothyroidism, bipolar disorder. Subjective Information Patient was transferred from [facility] unit. Patient was last seen by RD on 02/25; Initial note done again due to transfer of units. Per RD notes, patient is vegetarian. Diet clerks have already obtained and are familiar with patients requests/likes/ dislikes. Patient dislikes coffee, tea, bread (with lunch and dinner), rice, pasta and milk products. Likes fresh fruit, camomile tea, fish, shrimp, black hong burrito with wheat tortilla, poached eggs and toast, tofu and cauliflower. Per nursing notes , patient confused with delusion thoughts. Patient standing at nurses station at time of visit. Current Diet Order/ Nutrition Support 60 gm CCHO Patient / S.O Not Indicated Pertinent Medications maalox, colace, synthroid, MOM , Metformin Pertinent Labs (02/26) POC glucose 65 (last cholesterol 217) Nutritional Hx/Data Height 1.55 m Height (Calculated Centimeters) 154.9 Current Weight (lbs) 55.338 kg Weight (Calculated Kilograms) 55.3 Weight (Calculated Grams) 90382.3 [place] Body Weight 105 % [place] Body Weight 116 Body Mass Index (BMI) 23.0 Recent Weight Change No Weight Status Approriate GI Symptoms GI Symptoms None Difficult in: None Food Allergies No Cultural/Ethnic/Hinduism Belief Vegetarian Usual diet at home vegetarian Skin Integrity/Comment: Everton Sanchez Current %PO Fair (50-74%) Estimated Nutritional Goals BEE in Kcals: Using Current wt Calories/Kcals/Kg 25-30 kcal/kg using CBW 55.4 kg Kcals Calculated ~2625-7774 kcal/day Protein: Using Current wt Protein g/k.8-1 gm/kg Protein Calculated ~45-55 gm/day Fluid: ml ~4998-1742 ml/day (1 ml/kcal) Nutritional Problem 1. Problem Problem Altered nutrition related lab values related to Etiology episodes of hypoglycemia aeb Signs/Symptoms: POC glucose 69 x2 Intervention/Recommendation Comments 1. Consider switching diet to Vegetarian. 2. Consider checking HGA1C to determine need for CCHO restriction due to episodes of hypoglycemia. 3. FNS will continue to provide patient with food preferences in diet guidelines as appropriate. Expected Outcomes/Goals Expected Outcomes/Goals oral intake >75% of meals, weight stable, nutrition related labs WNL, SKin remains intact
--- NOTE | 2018-03-01 10:37 | Progress Notes ---
DATE: 03/01/2018 SUBJECTIVE: Chart reviewed and the patient interviewed. Also discussed the patient's condition with the staff and reviewed the records and labs. The patient continued to be extremely agitated and extremely irritable. The patient this morning medicated herself in her room and I had difficulty talking to her and interviewing her because of medicated herself and does not want to open the door and the patient was extremely angry and aggressive. She also unable to follow any of staff directions. The patient had to be given Haldol, Ativan, and Benadryl emergency dose to calm her down. ASSESSMENT: The patient is still psychotic and agitated. TREATMENT PLAN: Continue to monitor her behavior and her condition closely. Also, continue to work on her noncompliance with taking her medications and followup. [facility]# [id number]
[2018-03-02] MEDS: Levothyroxine 0.112 Mg Tab PO SCH (07:09)
[2018-03-02] MEDS: Multivitamin w/ Minerals Tab PO SCH (09:11)
--- NOTE | 2018-03-02 15:02 | General Progress Note ---
Subjective - Review of Systems Events since last encounter: lethargic no fever Objective - Results Result Diagrams: 02/26/18 04:50 02/26/18 04:50 Recent Labs: Laboratory Last Values WBC 7.1 Th/cmm (4.8-10.8) D 02/26/18 04:50 Corrected WBC (auto) 7.1 Th/cmm (4.8-10.8) 02/26/18 04:50 RBC 4.57 Mil/cmm (3.80-5.20) 02/26/18 04:50 Hgb 13.0 gm/dL (12-16) 02/26/18 04:50 Hct 39.8 % (41.0-60) L D 02/26/18 04:50 MCV 87.0 fl (81-100) 02/26/18 04:50 MCH 28.4 pg (27.0-31.0) 02/26/18 04:50 MCHC Differential 32.7 pg (28.0-36.0) 02/26/18 04:50 RDW 13.7 % (11.5-20.0) 02/26/18 04:50 Plt Count 185 Th/cmm (150-400) 02/26/18 04:50 MPV 8.8 fl 02/26/18 04:50 Add Manual Diff YES 02/26/18 04:50 Neutrophils % 58.4 % (40.0-80.0) 02/25/18 20:10 Band Neutrophils % 0 % (0-10) 02/26/18 04:50 Lymphocytes % 24.2 % (20.0-50.0) 02/25/18 20:10 Monocytes % 10.5 % (2.0-10.0) H 02/25/18 20:10 Eosinophils % 4.6 % (0.0-5.0) 02/25/18 20:10 Basophils % 2.3 % (0.0-2.0) H 02/25/18 20:10 Neutrophils (Manual) 63 % (40-80) 02/26/18 04:50 Lymphocytes 20 % (20-50) 02/26/18 04:50 Monocytes 6 % (2-10) 02/26/18 04:50 Eosinophils 8 % (0-5) H 02/26/18 04:50 Basophils 0 % (0-3) 02/26/18 04:50 Atypical Lymphocytes 3 % 02/26/18 04:50 Sodium 137 mEq/L (136-145) 02/26/18 04:50 Potassium 4.2 mEq/L (3.5-5.1) 02/26/18 04:50 Chloride 104 mEq/L (98-107) 02/26/18 04:50 Carbon Dioxide 26.2 mEq/L (21.0-31.0) 02/26/18 04:50 Anion Gap 11.0 (7.0-16.0) 02/26/18 04:50 BUN 16 mg/dL (7-25) 02/26/18 04:50 Creatinine 0.5 mg/dL (0.6-1.2) L 02/26/18 04:50 Est GFR ( Amer) TNP 02/26/18 04:50 Est GFR (Non-Af Amer) TNP 02/26/18 04:50 BUN/Creatinine Ratio 32.0 02/26/18 04:50 Glucose 81 mg/dL (70-105) 02/26/18 04:50 POC Glucose 65 MG/DL (70 - 105) L 02/26/18 07:37 Calcium 9.6 mg/dL (8.6-10.3) 02/26/18 04:50 Total Bilirubin 0.4 mg/dL (0.3-1.0) 02/25/18 20:10 AST 24 U/L (13-39) 02/25/18 20:10 ALT 12 U/L (7-52) 02/25/18 20:10 Alkaline Phosphatase 49 U/L (34-104) 02/25/18 20:10 Troponin I < 0.01 ng/mL (0.01-0.05) L 02/25/18 20:10 Total Protein 6.8 gm/dL (6.0-8.3) 02/25/18 20:10 Albumin 3.7 gm/dL (3.7-5.3) 02/25/18 20:10 Globulin 3.1 gm/dL 02/25/18 20:10 Albumin/Globulin Ratio 1.2 (1.0-1.8) 02/25/18 20:10 TSH 15.05 uIU/ml (0.34-5.60) H 02/25/18 20:17 - Physical Exam Vitals and I&O: Vital Signs Temp 97.0 F 03/02/18 06:00 Pulse 67 03/02/18 06:00 Resp 18 03/02/18 08:00 BP 104/48 03/02/18 06:00 Pulse Ox 100 03/02/18 06:00 Intake & Output 03/01/18 03/02/18 03/02/18 18:59 06:59 18:59 Intake Total 450 300 Balance 450 300 Weight (lbs) 55.338 kg 55.338 kg 55.338 kg Intake: Oral 450 300 Other: # Voids 3 # Bowel Movements 0 Stool Characteristics Soft Soft Weight Source Bedscale Estimated Estimated Active Medications: Current Medications Acetaminophen (Tylenol) 650 mg PO Q4HR PRN PRN Reason: Mild Pain / Temp above 100 Stop: 04/27/18 13:28 Al Hydrox/Mg Hydrox/Simethicone (Maalox) 30 ml PO Q4HR PRN PRN Reason: GI DISTRESS Stop: 04/27/18 13:28 Atropine Sulfate (Atropine) 1 mg IVP Q4H PRN PRN Reason: HR < 45 Stop: 04/27/18 07:36 Diphenhydramine HCl (Benadryl 50 Mg/Ml) 25 mg IM NOW PRN PRN Reason: Agitation Stop: 04/30/18 08:34 Last Admin: 03/01/18 09:25 Dose: 25 mg Docusate Sodium (Colace) 100 mg PO DAILY [facility] Stop: 04/28/18 08:59 Last Admin: 03/02/18 09:11 Dose: Not Given Gabapentin (Neurontin) 100 mg PO TID [facility] Stop: 04/27/18 13:59 Last Admin: 03/02/18 09:11 Dose: Not Given Dextrose/Sodium Chloride (D5-0.45ns) 1,000 mls @ 75 mls/hr IV .[id number] JORDY Stop: 04/26/18 20:02 Last Infusion: 02/28/18 18:00 Dose: Infused Levothyroxine Sodium (Synthroid) 0.112 mg PO QDAC [facility] Stop: 04/28/18 07:29 Last Admin: 03/02/18 07:09 Dose: 0.112 mg Lorazepam (Ativan) 1 mg IV Q4HR PRN; Protocol PRN Reason: Agitation Stop: 04/27/18 15:08 Magnesium Hydroxide (Milk Of Magnesia) 30 ml PO DAILY PRN PRN Reason: Constipation Stop: 04/27/18 13:28 Metformin HCl (Glucophage) 500 mg PO BID JORDY Stop: 04/27/18 16:59 Last Admin: 03/02/18 09:11 Dose: Not Given - Procedures Procedures: Procedures Procedure Code Date GROUP PSYCHOTHERAPY 79668 10/17/15 GROUP PSYCHOTHERAPY [id number] 10/17/15 Nutritional Asmnt/Malnutr-PDOC - Dietary Evaluation Malnutrition Findings (Please click <Entered> for more info): Nutritional Asmnt/Malnutrition Start: 02/28/18 11: 47 Text: Status: Complete Freq: Protocol: Document 02/28/18 11:48 MMULHERN (Rec: 02/28/18 11:52 MMULHERN NAMITA- [email or web address]) Nutritional Asmnt/Malnutrition Patient General Information Nutritional Screening Moderate Risk Diagnosis ALOC Pertinent Medical Hx/Surgical Hx hypertension, hypothyroidism, bipolar disorder. Subjective Information Patient was transferred from [facility] unit. Patient was last seen by RD on 02/25; Initial note done again due to transfer of units. Per RD notes, patient is vegetarian. Diet clerks have already obtained and are familiar with patients requests/likes/ dislikes. Patient dislikes coffee, tea, bread (with lunch and dinner), rice, pasta and milk products. Likes fresh fruit, camomile tea, fish, shrimp, black hong burrito with wheat tortilla, poached eggs and toast, tofu and cauliflower. Per nursing notes , patient confused with delusion thoughts. Patient standing at nurses station at time of visit. Current Diet Order/ Nutrition Support 60 gm CCHO Patient / S.O Not Indicated Pertinent Medications maalox, colace, synthroid, MOM , Metformin Pertinent Labs (02/26) POC glucose 65 (last cholesterol 217) Nutritional Hx/Data Height 1.55 m Height (Calculated Centimeters) 154.9 Current Weight (lbs) 55.338 kg Weight (Calculated Kilograms) 55.3 Weight (Calculated Grams) 09953.3 Leonard Body Weight 105 % Leonard Body Weight 116 Body Mass Index (BMI) 23.0 Recent Weight Change No Weight Status Approriate GI Symptoms GI Symptoms None Difficult in: None Food Allergies No Cultural/Ethnic/[employer] Belief Vegetarian Usual diet at home vegetarian Skin Integrity/Comment: Everton Sanchez Current %PO Fair (50-74%) Estimated Nutritional Goals BEE in Kcals: Using Current wt Calories/Kcals/Kg 25-30 kcal/kg using CBW 55.4 kg Kcals Calculated ~7657-9610 kcal/day Protein: Using Current wt Protein g/k.8-1 gm/kg Protein Calculated ~45-55 gm/day Fluid: ml ~7281-4715 ml/day (1 ml/kcal) Nutritional Problem 1. Problem Problem Altered nutrition related lab values related to Etiology episodes of hypoglycemia aeb Signs/Symptoms: POC glucose 69 x2 Intervention/Recommendation Comments 1. Consider switching diet to Vegetarian. 2. Consider checking HGA1C to determine need for CCHO restriction due to episodes of hypoglycemia. 3. FNS will continue to provide patient with food preferences in diet guidelines as appropriate. Expected Outcomes/Goals Expected Outcomes/Goals oral intake >75% of meals, weight stable, nutrition related labs WNL, SKin remains intact
--- NOTE | 2018-03-02 23:08 | Progress Notes ---
DATE: 03/02/[address] Bowles. Case was discussed with staff of the patient, reviewed records. This is a well-known case to me. I have seen her before covering for Dr. Bowles. The patient continues to have episodes of irritability and agitation. The patient has a hard time responding to people because of her agitation and she gets very easily agitated, unable to follow direction, very poor insight. The patient has been seen by Dr. Bowles. She is on Neurontin 100 mg 3 times a day with no side effects, no sedation, no nausea, no extrapyramidal symptoms. Thank you very much for allowing me to participate in the care of this most interesting lady. JOB# [id number]
== END 2018-03-02 20:50 | DRG 309 ==
LOC: ICU 18:35 → TELE 02-26 14:59 → MSI 02-26 16:36
PROVIDERS: ADMIT Internal Medicine; ATTEND Internal Medicine
DX: R00.1 Bradycardia, unspecified (principal); L03.116 Cellulitis of left lower limb; R60.0 Localized edema; I10 Essential (primary) hypertension; E03.9 Hypothyroidism, unspecified; F03.90 Unspecified dementia, unspecified severity, without behavioral disturbance, psychotic disturbance, mood disturbance, and anxiety; F32.9 Major depressive disorder, single episode, unspecified; F29 Unspecified psychosis not due to a substance or known physiological condition; M19.90 Unspecified osteoarthritis, unspecified site
CPT/HCPCS: 36415-UA; 71045-TC; 80048-TC; 80053-TC; 82948-90; 84443-TC; 84484-TC; 85007-TC; 85025-TC; 93005; J0461; J1200; J1630; J2060; Z7610